=== PATIENT | female | born 1935 | race Caucasian/White ===

== ENCOUNTER → 2016-04-03 16:37 | Outpatient (CLI) | payer MEDICARE ==
[2015-09-21 14:10] VITALS: BMI 31.8
[~2016-04-03 16:37] MED LIST: ADVAIR 250/501 DISK INH; ADVAIR 500/501 DISK INH; ALDACTONE25 MG PO; AMBIEN10 MG PO; AMBIEN5 MG PO; ASPIRIN325 MG PO; ASPIRIN81 MG PO; ATIVAN0.5 MG PO; ATROVENT 0.02%2.5 ML UPD; AUGMENTIN 500-11 TA1 PO; BENZONATATE200 MG PO; BROVANA15 MCG/2 M INH; CORDARONE200 MG PO; COREG 3.1253.125 MG PO; COREG6.25 MG PO; DOXYCYCLINE HY100 M2 PO; FERREX 150 PLUS1 CAP PO; FERROUS SULFAT325 MG PO; FLORAJEN3 CAPS460 MG PO; FLUTICASONE PRO16 GM NASAL; FUROSEMIDE10 MG/M1 IV; GLYCOLAX527 GM PO; IPRAT-ALBUT 0.5-3 ML UPD; ISOSORBIDE MONO30 M1 PO; KLOR-CON 1010 MEQ PO; LASIX40 MG PO; LISINOPRIL10 MG PO; LISINOPRIL2.5 MG PO; LUNESTA1 MG PO; MAG-OX 400 MG400 MG PO; MIRALAX17 GM PO; MUCINEX DM ER1 EAC1 PO; MUCINEX600 MG PO; OMNICEF300 MG PO; ONDANSETRON4 MG/2 M3 IV; PACERONE200 MG PO; PLAVIX75 MG PO; PRAVACHOL40 MG PO; PRAVACHOL80 MG PO; PREDNISONE10 MG PO; PREDNISONE20 MG PO; PROAIR HFA8.5 GM INH; PROTONIX I40 MG/VIAL IV; PROVENTIL/2.5 MG/3 M NEB; PULMICORT0.5 MG/21 UPD; RESTORIL7.5 MG PO; SINGULAIR10 MG PO; SOLU-MEDRO40 MG/1 M1 IV; SPIRIVA18 MCG INH; STERAPRED 5MG 125 MG PO; STERAPRED DS 1210 MG PO; TESSALON PERLE100 MG PO; XOPENEX 0.0.63 MG/3 UPD; ZITHROMAX250 MG PO; ZITHROMAX500 MG PO; ZOFRAN4 MG PO
== END | disposition home or self-care (01) ==
LOC: D.MAMMO 16:15
DX: Z12.31 Encounter for screening mammogram for malignant neoplasm of breast (principal)

== ENCOUNTER 2016-05-01 16:44 | Inpatient (IN) | payer MEDICARE ==
[~2016-05-01] VITALS: Ht 160 cm; Wt 82.3 kg
[~2016-05-01 16:44] MED LIST changes: -ADVAIR 500/501 DISK INH; -ALDACTONE25 MG PO; -AMBIEN10 MG PO; -ATROVENT 0.02%2.5 ML UPD; -AUGMENTIN 500-11 TA1 PO; -BENZONATATE200 MG PO; -FERROUS SULFAT325 MG PO; -FLORAJEN3 CAPS460 MG PO; -FUROSEMIDE10 MG/M1 IV; -GLYCOLAX527 GM PO; -LUNESTA1 MG PO; -MAG-OX 400 MG400 MG PO; -PREDNISONE10 MG PO; -PROAIR HFA8.5 GM INH; -PROTONIX I40 MG/VIAL IV; -PULMICORT0.5 MG/21 UPD; -SINGULAIR10 MG PO; -SOLU-MEDRO40 MG/1 M1 IV; -XOPENEX 0.0.63 MG/3 UPD; -ZITHROMAX250 MG PO
--- NOTE | 2016-05-01 17:00 | NUR ---
RECEIVED TO ROOM 2205 AT THIS TIME DIRECT ADMISSION FROM DR COURTNEY'S OFFICE. AT BEDSIDE. OXYGEN ON 4L VIA NC, WHICH IS PT'S HOME DOSE. ASSESSMENT AND HISTORY OBTAINED PER FLOWSHEET. VITAL SIGNS OBTAINED AND SCHUYLER ONTIVEROS APN ASSESSING PT. WILL CONTINUE WITH PLAN OF CARE.
[2016-05-01] MEDS ORDERED: LUNESTA1 MG PO (17:25)
[2016-05-01] MEDS ORDERED: GLYCOLAX527 GM PO (17:26)
[2016-05-01] MEDS ORDERED: MAG-OX 400 MG400 MG PO (17:27)
[2016-05-01] MEDS ORDERED: ALDACTONE25 MG PO (17:27)
[2016-05-01] MEDS ORDERED: COREG 3.1253.125 MG PO (17:28)
[2016-05-01] MEDS ORDERED: CORDARONE200 MG PO (17:30)
[2016-05-01] MEDS ORDERED: SINGULAIR10 MG PO (17:30)
[2016-05-01] MEDS ORDERED: ADVAIR 500/501 DISK INH (17:32)
[2016-05-01 17:47] LABS: BASOPHILS 0.3 % (0.0-2.0); EOSINOPHILS 1.2 % (0-7); HEMOGLOBIN 10.6 g/dL (12-16); IMMATURE GRANULOCYTES 0.4 % (0-5); LYMPHOCYTES 24.3 % (15-50); MCHC 29.4 g/dL (31.0-37.0); MCV 74.8 fL (80.0-100.0); MEAN PLATELET VOLUME 10.3 fL (7.4-10.4); MONOCYTES 7.2 % (2-11); NEUTROPHILS 66.6 % (40-80); RBC 4.81 10x6/uL (4.00-5.40); RDW 18.6 % (11.5-14.5); WBC 7.5 10x3/uL (4.8-10.8)
[2016-05-01 17:48] LABS: PLATELET COUNT 217 10x3/uL (130-400)
[2016-05-01 17:59] VITALS: BP 143/75; BMI 31.6
[2016-05-01 18:12] LABS: CKMB 1.6 U/L (0.0-3.6); TROPONIN-I 0.017 ng/mL (0.000-0.060)
[2016-05-01 18:27] LABS: APPEARANCE CLEAR (CLEAR); BILIRUBIN NEGATIVE (NEGATIVE); COLOR YELLOW (YELLOW); GLUCOSE NEGATIVE (NEGATIVE); KETONE NEGATIVE (NEGATIVE); LEUKOCYTE ESTERASE NEGATIVE (NEGATIVE); NITRITE NEGATIVE (NEGATIVE); PROTEIN NEGATIVE (NEGATIVE); UROBILINOGEN NORMAL (NORMAL)
--- NOTE | 2016-05-01 19:15 | NUR ---
20G IV SITED TO PT'S LEFT HAND X5 ATTEMPTS. PT TOLERATED WITHOUT COMPLAINTS.
[2016-05-01 21:00] VITALS: BP 104/42
[2016-05-01 23:40] LABS: ALBUMIN 2.3 g/dL (3.4-5.0); ALKALINE PHOSPHATASE 56 U/L (46-116); ALT (SGPT) 19 U/L (10-68); CALCIUM 8.7 mg/dL (8.5-10.1); CARBON DIOXIDE 30.7 mmol/L (21.0-32.0); CHLORIDE - SERUM 102 mmol/L (98-107); CKMB 3.2 U/L (0.0-3.6); CREATININE - SERUM 0.9 mg/dL (0.6-1.3); MAGNESIUM - SERUM 1.7 mg/dL (1.8-2.4); POTASSIUM - SERUM 3.4 mmol/L (3.5-5.1); PRO BNP 2160 pg/mL (0-450); PROTEIN - SERUM 5.9 g/dL (6.4-8.2); SODIUM 139 mmol/L (136-145); UREA NITROGEN 18 mg/dL (7-18); eGFR NON AFRICAN AMERICAN 64 mL/min (90-120)
[2016-05-01 23:43] LABS: CALC OSMOLALITY 282 mosm/kg (275-300); GLUCOSE 161 mg/dL (74-106)
[2016-05-01 23:44] LABS: TROPONIN-I 0.224 ng/mL (0.000-0.060)
[2016-05-02 01:00] VITALS: BP 120/52
[2016-05-02 05:00] VITALS: BP 115/49
[2016-05-02 05:11] LABS: BASOPHILS 0.2 % (0.0-2.0); EOSINOPHILS 1.4 % (0-7); HEMATOCRIT 33.4 % (36.0-48.0); HEMOGLOBIN 9.7 g/dL (12-16); LYMPHOCYTES 23.9 % (15-50); MCH 21.7 pg (26.0-34.0); MCV 74.7 fL (80.0-100.0); MEAN PLATELET VOLUME 9.8 fL (7.4-10.4); MONOCYTES 9.1 % (2-11); NEUTROPHILS 65.4 % (40-80); PLATELET COUNT 198 10x3/uL (130-400); RBC 4.47 10x6/uL (4.00-5.40); RDW 18.8 % (11.5-14.5); WBC 5.7 10x3/uL (4.8-10.8)
[2016-05-02 05:35] LABS: ALKALINE PHOSPHATASE 102 U/L (46-116); CALCIUM 8.2 mg/dL (8.5-10.1); CARBON DIOXIDE 33.6 mmol/L (21.0-32.0); CHLORIDE - SERUM 106 mmol/L (98-107); CKMB 1.1 U/L (0.0-3.6); PROTEIN - SERUM 6.2 g/dL (6.4-8.2); SODIUM 143 mmol/L (136-145); TROPONIN-I 0.021 ng/mL (0.000-0.060); UREA NITROGEN 18 mg/dL (7-18); eGFR NON AFRICAN AMERICAN 57 mL/min (90-120)
[2016-05-02 05:53] LABS: ALBUMIN 3.3 g/dL (3.4-5.0); ALT (SGPT) 40 U/L (10-68); CALC OSMOLALITY 286 mosm/kg (275-300); GLUCOSE 92 mg/dL (74-106); POTASSIUM - SERUM 4.1 mmol/L (3.5-5.1)
[2016-05-02 07:30] VITALS: BP 123/56
--- NOTE | 2016-05-02 07:30 | NUR ---
RECIEVED PT DURING WALKING ROUNDS. PT RESTING COMFORTABLY IN BED WITH NO COMPLAINTS OF PAIN OR DISCOMFORT AT THIS TIME. ASSESSMENT DONE PER FLOWSHEET. BED IN LOW POSITION AND CALL LIGHT WITHIN REACH. WILL CONTINUE TO MONITOR.
--- NOTE | 2016-05-02 09:45 | NUR ---
PATIENT IN LEFT LATERAL POSITION RESTING WITH EYES CLOSED. RESPIRATIONS EVEN AND UNLABORED. SIDE RAILS UP X2. BED IN LOW POSITION. CALL LIGHT IN REACH.
[2016-05-02 10:35] VITALS: Ht 160 cm; Wt 82.3 kg
--- NOTE | 2016-05-02 10:40 | NUR ---
PT SITTING UP IN CHAIR WITH NO COMPLAINTS OF PAIN OR DISCOMFORT AT THIS TIME. CALL LIGHT WITHIN REACH. WILL CONTINUE TO MONITOR.
[2016-05-02 12:22] VITALS: BP 104/48
[2016-05-02 13:53] LABS: CKMB 1.4 U/L (0.0-3.6); TROPONIN-I 0.017 ng/mL (0.000-0.060)
[2016-05-02 16:02] VITALS: BP 133/74
--- NOTE | 2016-05-02 16:48 | NUR ---
Patient Name: RIKKI LUCERO Admission Status: Urgent Accout number: [id number] Admission Date: 05-01-2016 : 1935 Admission Diagnosis: Attending: CL Current LOS: 1 Anticipated DC Date: 05-07-2016 Planned Disposition: Home with Home Health Primary Insurance: MEDICARE A & B Discharge Planning Comments: CM MET WITH PATIENT REGARDING D/C NEEDS AND PLANS. PATIENT STATED SHE LIVES WITH HER SPOUSE (ROSMERY) AND HE WILL DRIVE HER HOME AT DISCHARGE. PATIENT STATED SHE HAS 2 STEPS W/O RAILS TO ENTER HOME AND NO STAIRS INSIDE. PATIENT STATED SHE IS INDEPENDENT WITH HER CARE AND HAS OXYGEN (4L) 24/7, NEBULIZER, PORTABLE O2, SHOWER CHAIR, AND WALKER AT HOME. OXYGEN IS SUPPLIED BY [facility]. PATIENTS PCP IS DR. AUSTIN AND PHARMACY IS [facility]. PATIENT HAS NOT HAD HOME HEALTH BUT HAS SIGNED THE ANNA FORM WITH [facility]. CM WILL CONTINUE TO FOLLOW PATIENT WITH D/C NEEDS AND PLANS. PCP DR. NORMAN PLATA [facility]- [phone] ROSMERY (SPOUSE) [phone] [facility] (OXYGEN) Appetizer Packer: Paola Murphy Is the patient Alert and Oriented? Yes 0 * How many steps to enter\exit or inside your home? 2 W/O RAIL 0 * PCP DR. AUSTIN 0 * Pharmacy [facility] 0 * Preadmission Environment Home with Family 0 * ADLs Independent 0 * Equipment Nebulizer Oxygen Shower Chair Walker 0 * Other Equipment PORTABLE O2 OXYGEN SUPPLIE BY [facility] 0 * List name and contact numbers for known caregivers / representatives who currently or will assist patient after discharge: ROSMERY (ESTEVAN-NICKNAME) SPOUSE [phone] 0 * Community resources currently utilized None 0 * Additional services required to return to the preadmission environment? Yes 0 * Can the patient safely return to the preadmission environment? Yes 0 * Has this patient been hospitalized within the prior 30 days at any hospital? No 0 Grand Total: 0
[2016-05-02 18:10] LABS: CKMB 1.6 U/L (0.0-3.6)
--- NOTE | 2016-05-02 20:10 | NUR ---
ASSESSMENT COMPLETED, NO ACUTE DISTRESSS NOTED, DENIES NEEDS, FAMILY IN ROOM, FALL PRECAUTIONS IN PLACE, CL IN REACH, WILL MONITOR
[2016-05-02 21:00] VITALS: BP 111/54
--- NOTE | 2016-05-02 22:01 | NUR ---
MEDS GIVEN PER MAR ALONG WITH TYLENOL FOR GENERALIZED PAIN AND AMBIEN FOR SLEEP PER REQUEST, KEN WELL, CL IN REACH
[2016-05-03 00:29] LABS: CKMB 1.4 U/L (0.0-3.6)
[2016-05-03 01:00] VITALS: BP 110/66
[2016-05-03 05:00] VITALS: BP 122/64
[2016-05-03 05:47] LABS: BASOPHILS 0 % (0.0-2.0); EOSINOPHILS 0.1 % (0-7); HEMATOCRIT 33.9 % (36.0-48.0); HEMOGLOBIN 9.8 g/dL (12-16); IMMATURE GRANULOCYTES 0.1 % (0-5); LYMPHOCYTES 10.9 % (15-50); MCH 21.8 pg (26.0-34.0); MCHC 28.9 g/dL (31.0-37.0); MCV 75.5 fL (80.0-100.0); MEAN PLATELET VOLUME 10.3 fL (7.4-10.4); MONOCYTES 0.7 % (2-11); NEUTROPHILS 88.2 % (40-80); PLATELET COUNT 211 10x3/uL (130-400); RBC 4.49 10x6/uL (4.00-5.40); RDW 18.5 % (11.5-14.5); WBC 6.8 10x3/uL (4.8-10.8)
[2016-05-03 06:12] LABS: ALBUMIN 3.3 g/dL (3.4-5.0); ALKALINE PHOSPHATASE 101 U/L (46-116); ALT (SGPT) 38 U/L (10-68); BILIRUBIN - TOTAL 0.29 mg/dL (0.2-1.3); CALC OSMOLALITY 290 mosm/kg (275-300); CALCIUM 8.5 mg/dL (8.5-10.1); CARBON DIOXIDE 31.2 mmol/L (21.0-32.0); CHLORIDE - SERUM 107 mmol/L (98-107); CKMB 1.4 U/L (0.0-3.6); CREATININE - SERUM 0.9 mg/dL (0.6-1.3); POTASSIUM - SERUM 4.6 mmol/L (3.5-5.1); PROTEIN - SERUM 6.3 g/dL (6.4-8.2); SODIUM 143 mmol/L (136-145); UREA NITROGEN 21 mg/dL (7-18); eGFR NON AFRICAN AMERICAN 64 mL/min (90-120)
[2016-05-03 06:16] LABS: GLUCOSE 146 mg/dL (74-106)
[2016-05-03 07:44] VITALS: BP 125/53
--- NOTE | 2016-05-03 08:00 | NUR ---
AWAKE AND ALERT THIS MORINING. RESPIRATIONS EVEN AND NON LABORED. ASSESSMENT PERFORMED PER FLOWSHEET. LUNG SOUNDS DIMINISHED BILATERALLY. OXYGEN ON 4L, WHICH IS PT'S HOME DOSE. SCD'S OFF PER PT AT THIS TIME. DAILY WEIGHT OBTAINED AND PLACED IN FLOW SHEET. DENIES PAIN OR NEEDS AT THIS TIME. PT AMBULATES INDEPENDENTLY AND SELF POSITIONS FOR COMFORT. CALL LIGHT IN REACH. SRX2 WITH BED IN LOWEST POSITION AND WHEELS LOCKED. WILL CONTINUE WITH PLAN OF CARE.
--- NOTE | 2016-05-03 10:15 | NUR ---
DENIES NEEDS AT PRESENT TIME. CALL LIGHT AND PERSONAL BELONGINGS IN REACH. WILL CONTINUE WITH PLAN OF CARE.
--- NOTE | 2016-05-03 12:07 | NUR ---
SCHEDULED MEDICATIONS ADMINISTERED PER MARGOT, FEEDER DRIVER WITH JEB WITH INSTRUCTOR AT HER SIDE. PT DENIES FURTHER NEEDS. CALL LIGHT IN REACH, WILL CONTINUE WITH PLAN OF CARE.
[2016-05-03 12:13] VITALS: BP 103/42
[2016-05-03 12:18] LABS: CKMB 1.3 U/L (0.0-3.6)
--- NOTE | 2016-05-03 13:59 | EC ---
PATIENT:RIKKI LUCERO DATE OF SERVICE: 05/01/16 SEX: F MEDICAL RECORD: [id number] DATE OF : [birth year] LOCATION:D.MS Taylor220 AGE OF PATIENT: 80 ADMISSION DATE: 05/01/16 REFERRING PHYSICIAN: INTERPRETING PHYSICIAN: MIL MOREIRA MD ECHOCARDIOGRAM REPORT ECHO CHARGES 4 ECHO COMPLETE CLINICAL DIAGNOSIS: ELEVATED BNP/CHF ECHOCARDIOGRAPHIC MEASUREMENTS (adult normal given) AC root (d.<3.7cm) 3.3 LV Septum d (<1.2 cm> 1.7 Valve Excursion 2.1 LV Septum (systole) 2.0 Left Atria (s.<4.0cm> 4.6 LVPW d(<1.2cm) 1.7 RV (d.<2.3cm) 3.1 LVPW (sytole) 2.2 LV diastole(<5.6CM) 7.1 MV E-F(>70mm/sec) LV systole 5.7 LVOT Diameter 1.9 MV exc.(>10mm) Est.ejection fraction (50-75%) Pericardial Effusion N DOPPLER: LVIT A 114.0 E 90.0 LA RVSP 60.0 LVOT 103 AOP1/2T Asc. Ao 200 RVOT 57.0 RA PA 128 AV Gradient Peak 16.0 AV Mean 7.8 AV Area 1.3 MV Gradient Peak 5.3 MV Mean 1.8 MV Area COMMENTS: Security Associate: Jamila LINOE Ornamental Iron Erector:1 Dr. Moreira TAPE# PACS DATE OF SERVICE: 05/02/2016 Echocardiogram FINDINGS: 1. Left ventricular chamber size is dilated. Left ventricular systolic function is markedly reduced, overall ejection fraction in the 20% to 25% range. 2. Left atrium is enlarged at 4.6 cm. Right atrium and right ventricular chamber sizes are as well enlarged. 3. Ventricular septal defect appears to be present. This is seen in the ECHOCARDIOGRAM REPORT [id number] RIKKI LUCERO ANN subcostal view with left to right shunt. 4. Valvular structures have normal structure and motion. 5. Doppler interrogation reveals moderate mitral regurgitation, moderate tricuspid regurgitation, no other valvular insufficiency or stenosis and pulmonary systolic pressure is elevated at 60 mmHg. 6. No evidence of pericardial effusion or left ventricular thrombus. TRANSINT:[id number] Voice Confirmation ID: [id number] DOCUMENT ID: [id number] MIL MOREIRA MD at 1359 CC: [id number] DICTATION DATE: 05/02/16 1600 LEARNING TECHNOLOGIST: 05/02/16 1640 ADM IN [place] [id number] [place] [id number]
--- NOTE | 2016-05-03 14:00 | NUR ---
DR JALLOH VISITING WITH PT AT THIS TIME. DENIES NEEDS AT PRESENT. NO CHANGES IN INITIAL ASSESSMENT. CALL LIGHT IN REACH, WILL CONTINUE WITH PLAN OF CARE.
[2016-05-03 15:49] VITALS: BP 107/52
[2016-05-03 17:45] LABS: CKMB 2.1 U/L (0.0-3.6)
[2016-05-03 20:38] VITALS: BP 132/59
--- NOTE | 2016-05-03 21:10 | NUR ---
MEDS GIVEN PER MAR, KEN WELL, DENIES NEEDS, CL IN REACH
--- NOTE | 2016-05-03 21:40 | NUR ---
ASSESSMENT COMPLETED, NO DISTRESS NOTED, FAMILY PRESENT, FALL PRECAUTIONS IN PLACE, CL IN REACH
--- NOTE | 2016-05-03 22:43 | NUR ---
PRN AMBIEN GIVEN PER REQUEST FOR SLEEP, KEN WELL, DENIES NEEDS, CL IN REACH
[2016-05-04] VITALS: BP 110/62
[2016-05-04 04:00] VITALS: BP 119/64
[2016-05-04 05:13] LABS: BASOPHILS 0 % (0.0-2.0); EOSINOPHILS 0 % (0-7); HEMATOCRIT 33.5 % (36.0-48.0); HEMOGLOBIN 9.6 g/dL (12-16); IMMATURE GRANULOCYTES 0.3 % (0-5); LYMPHOCYTES 5.3 % (15-50); MCH 21.6 pg (26.0-34.0); MCHC 28.7 g/dL (31.0-37.0); MCV 75.3 fL (80.0-100.0); MEAN PLATELET VOLUME 10.8 fL (7.4-10.4); MONOCYTES 4.3 % (2-11); NEUTROPHILS 90.1 % (40-80); PLATELET COUNT 234 10x3/uL (130-400); RBC 4.45 10x6/uL (4.00-5.40); RDW 18.8 % (11.5-14.5)
--- NOTE | 2016-05-04 05:16 | NUR ---
AM MEDS GIVEN PER MAR, KEN WELL, DENIES NEEDS, SAFETY MEASURES IN PLACE, CL IN REACH
[2016-05-04 05:20] LABS: WBC 13.3 10x3/uL (4.8-10.8)
[2016-05-04 05:29] LABS: ALBUMIN 3.3 g/dL (3.4-5.0); BILIRUBIN - TOTAL 0.25 mg/dL (0.2-1.3); CALCIUM 8.3 mg/dL (8.5-10.1); CARBON DIOXIDE 34.5 mmol/L (21.0-32.0); POTASSIUM - SERUM 4.5 mmol/L (3.5-5.1)
[2016-05-04 08:03] VITALS: BP 130/61
--- NOTE | 2016-05-04 08:50 | NUR ---
AWAKE AND ALERT AT THIS TIME. DENIES PAIN OR NEEDS. LYING SUPINE IN BED WITH HOB AT 30 DEGREES. IV TO LEFT HAND PATENT. RESPIRATIONS EVEN AND NON LABORED. OXYGEN ON 4L VIA NC. CALL LIGHT IN REACH, SRX2 WITH BED LOCKED AND IN LOWEST POSITION. AMBULATES AND SELF POSITIONS FOR COMFORT CALL LIGHT IN REACH, WILL CONTINUE WITH PLAN OF CARE.
[2016-05-04 11:11] VITALS: BP 114/48
--- NOTE | 2016-05-04 12:40 | CN ---
PATIENT NAME:RIKKI RUST MEDICAL RECORD: [id number] : [birth year] LOCATION:D.MS Taylor2205 ADMIT DATE: 05/01/16 ACCOUNT: [id number] CONSULTING PHYSICIAN: ROBERT SADLER MD REFERRING PHYSICIAN: KHADAR AUSTIN MD DATE OF CONSULTATION: 05/02/2016 CONSULT REQUESTING PHYSICIAN: Allison Roy MD. REASON FOR CONSULTATION: Pneumonia, acute exacerbation of chronic obstructive pulmonary disease. HISTORY OF PRESENT ILLNESS: Ms. Rust is a 80-year-old very pleasant lady. According to the patient, she is sick for the last few days. She was treated by antibiotics yesterday by Dr. Leblanc, but she was not getting any better. Yesterday, she was seen again in the office and she has shortness of breath, coughing and wheezing. She denies any fever and chill. There are no night sweats. Denies any chest pain. REVIEW OF SYSTEMS: HEENT: Sinus congestion. RESPIRATORY: As in history of present illness. CARDIOVASCULAR: Negative. GASTROINTESTINAL: Negative. GENITOURINARY: Negative. Other review of the systems negative. PAST MEDICAL HISTORY: 1. COPD, home oxygen dependent. 2. Obstructive sleep apnea. 3. Congestive heart failure with systolic dysfunction. 4. Hypertension. 5. Coronary artery disease. 6. History of pneumonia. 7. History of recurrent COPD exacerbation and respiratory failure in the past. PAST SURGICAL HISTORY: 1. Hysterectomy. 2. Appendectomy. 3. Cardiac catheterization and stent placement. 4. Surgery for varicose veins repair, neck surgery for fracture and fixation of the right shoulder. ALLERGIES: SHE IS ALLERGIC TO MOXIFLOXACIN, SULFA. PRESENT MEDICATIONS: She is on DuoNeb, Rocephin and Zithromax. Her other medication is reviewed. PERSONAL AND SOCIAL HISTORY: The patient is an ex-smoker. She is a nondrinker. FAMILY HISTORY: Significant for cardiovascular disease. PHYSICAL EXAMINATION: GENERAL: Now, the patient is lying comfortably. She is not in acute respiratory distress. CONSULT REPORT [id number] RIKKI RUST VITAL SIGNS: The blood pressure is 104/48, pulse is 54, respirations 22, temperature 97 and SPO2 is 96% on nasal cannula. HEENT: Conjunctivae are pink. Sclerae nonicteric. NECK: Supple, no JVD. CHEST: There are crackles at the right base. Wheeze on forceful expiration. HEART: Rhythm regular, normal sound, no murmur. ABDOMEN: Soft. Bowel sounds present. No hepatosplenomegaly. RECTAL: Deferred. EXTREMITIES: No cyanosis, no clubbing, no pedal edema. SKIN: Warm, normal turgor. CENTRAL NERVOUS SYSTEM: The patient is awake and alert. There are no obvious cranial nerve abnormality. The gait was not tested. CHEST RADIOGRAPH: There are basilar infiltrate, a questionable pleural effusion. OTHER LABORATORY DATA: CBC: WBC 4.7, hemoglobin 9.7, hematocrit 33.4 with platelet count 198. Chemistry: Sodium 143, potassium 4.1, BUN is 18, creatinine is 1, glucose 92. IMPRESSION: 1. Acute exacerbation of chronic obstructive pulmonary disease. 2. Right basilar pneumonia, most likely community-acquired pneumonia. 3. Dyspnea on exertion. 4. Chronic hypoxic respiratory failure. 5. Congestive heart failure with systolic dysfunction. 6. Obstructive sleep apnea. RECOMMENDATION: 1. Continue albuterol/ipratropium nebulizer. 2. I will add Brovana, budesonide nebulizers. 3. Methylprednisolone IV. 4. Rocephin and Zithromax IV. 5. We will follow up labs and chest radiograph. Dr. Roy, once again thanks for involving me in the care of Ms. Rust. TRANSINT:[id number] Voice Confirmation ID: [id number] DOCUMENT ID: [id number] ROBERT SADLER MD at 1240 CC: KHADAR AUSTIN MD [id number] DICTATION DATE: 05/02/16 1415 DIGITAL TRAFFIC COORDINATOR: 05/02/16 1542 ADM IN [place] [id number] [place] [id number]
[2016-05-04 15:57] VITALS: BP 100/81
--- NOTE | 2016-05-04 17:35 | NUR ---
SCHEDULED MEDICATIONS ADMINISTERED AT THIS TIME. PT DENIES PAIN. IV TO LEFT HAND PATENT WITH NO S/S OF INFILTRATION PRESENT. CALL LIGHT IN REACH. WILL CONTINUE WITH PLAN OF CARE.
--- NOTE | 2016-05-04 19:55 | NUR ---
ASSESSMENT COMPLETED, NO DISTRESS NOTED, DENIES NEEDS, SAFETY PRECAUTIONS IN PLACE, CL IN REACH, WILL MONITOR
[2016-05-04 20:00] VITALS: BP 119/47
--- NOTE | 2016-05-04 22:12 | NUR ---
MEDS GIVEN PER MAR ALONG WITH PRN AMBIEN FOR SLEEP, KEN WELL, CL IN REACH
--- NOTE | 2016-05-04 23:32 | NUR ---
RESTING WITH EYES CLOSED, RESP WITH EASE, NC IN PLACE, SR'S UP X2, CL IN REACH
[2016-05-05] VITALS: BP 113/50
[2016-05-05 04:00] VITALS: BP 131/64
[2016-05-05 05:25] LABS: BASOPHILS 0 % (0.0-2.0); EOSINOPHILS 0 % (0-7); HEMATOCRIT 33.2 % (36.0-48.0); HEMOGLOBIN 9.8 g/dL (12-16); IMMATURE GRANULOCYTES 0.2 % (0-5); LYMPHOCYTES 5.6 % (15-50); MCHC 29.5 g/dL (31.0-37.0); MCV 74.4 fL (80.0-100.0); MEAN PLATELET VOLUME 10.3 fL (7.4-10.4); NEUTROPHILS 92.2 % (40-80); PLATELET COUNT 234 10x3/uL (130-400); RBC 4.46 10x6/uL (4.00-5.40); RDW 18.7 % (11.5-14.5)
[2016-05-05 05:43] LABS: ALBUMIN 3.3 g/dL (3.4-5.0); ANION GAP 8.4 mmol/L (8-16); BILIRUBIN - TOTAL 0.27 mg/dL (0.2-1.3); CALCIUM 8.5 mg/dL (8.5-10.1); CARBON DIOXIDE 34.1 mmol/L (21.0-32.0); POTASSIUM - SERUM 4.5 mmol/L (3.5-5.1); PROTEIN - SERUM 6.1 g/dL (6.4-8.2)
--- NOTE | 2016-05-05 07:37 | NUR ---
PATIENT IS AWAKE, ALERT AND ORIENTED X'S 4. SERG IS IN ROOM DOING PATIENT'S ASSESSMENT. PATIENT DENIES NEEDS AT THIS TIME. PATIENT IS RECIEVING OXYGEN VIA NASAL CANNULA AT 5L/MIN.
--- NOTE | 2016-05-05 07:40 | NUR ---
RECIEVED PATIENT DURING WALKING ROUNDS. PATIENT LYING IN BED WITH EVEN RESPIRATIONS. NO SIGNS OF DISTRESS. HOB 40DEGRESS, READING NEWSPAPER. ASSESSMENT DONE PER FLOW SHEET. BED IN LOW POSITION AND CALL LIGHT WITHIN REACH. WILL CONTINUE TO MONITOR.
[2016-05-05 08:16] VITALS: BP 113/69
[2016-05-05 12:20] VITALS: BP 106/79
[2016-05-05 15:49] VITALS: BP 110/60
--- NOTE | 2016-05-05 18:58 | NUR ---
NO CHANGES HAVE OCCURED SINCE INITAL SHIFT ASSESSMENT
--- NOTE | 2016-05-05 19:35 | NUR ---
ASSESSMENT COMPLETED, NO ACUTE DISTRESS NOTED, NC IN PLACE, DENIES PAIN OR NEEDS AT THIS TIME, SR'S UP X2, CL IN REACH, WILL MONITOR
[2016-05-05 20:00] VITALS: BP 120/56
--- NOTE | 2016-05-05 21:42 | NUR ---
MEDS GIVEN PER MAR ALONG WITH PRN AMBIEN FOR SLEEP, KEN WELL, DENIES NEEDS, CL IN REACH
--- NOTE | 2016-05-05 23:22 | NUR ---
RESTING WITH EYES CLOSED, NO DISTRESS NOTED, NC IN PLACE, SR'S UP X2, CL IN REACH
[2016-05-06] VITALS: BP 108/52
[2016-05-06 04:00] VITALS: BP 125/55
[2016-05-06 05:27] LABS: BASOPHILS 0 % (0.0-2.0); EOSINOPHILS 0 % (0-7); HEMATOCRIT 33.5 % (36.0-48.0); HEMOGLOBIN 9.8 g/dL (12-16); IMMATURE GRANULOCYTES 0.2 % (0-5); LYMPHOCYTES 6.3 % (15-50); MCH 21.7 pg (26.0-34.0); MCHC 29.3 g/dL (31.0-37.0); MCV 74.3 fL (80.0-100.0); MEAN PLATELET VOLUME 10.4 fL (7.4-10.4); MONOCYTES 2.2 % (2-11); NEUTROPHILS 91.3 % (40-80); PLATELET COUNT 237 10x3/uL (130-400); RBC 4.51 10x6/uL (4.00-5.40); RDW 18.6 % (11.5-14.5); WBC 9.7 10x3/uL (4.8-10.8)
[2016-05-06 05:59] LABS: ALBUMIN 3.2 g/dL (3.4-5.0); ANION GAP 8.4 mmol/L (8-16); BILIRUBIN - TOTAL 0.24 mg/dL (0.2-1.3); CALCIUM 8.1 mg/dL (8.5-10.1); CARBON DIOXIDE 33.2 mmol/L (21.0-32.0); POTASSIUM - SERUM 4.6 mmol/L (3.5-5.1); PROTEIN - SERUM 5.8 g/dL (6.4-8.2)
--- NOTE | 2016-05-06 07:00 | NUR ---
REPORT RECIEVED ASSUMED CARE. PATIENT IN BED WITH IV INTACT. NO COMPLAINTS AT THIS TIME. CALL LIGHT WITHIN REACH.
[2016-05-06 08:03] VITALS: BP 147/72
[2016-05-06 11:11] VITALS: BP 100/50
[2016-05-06 16:22] VITALS: BP 118/62
--- NOTE | 2016-05-06 18:50 | NUR ---
PATIENT IN BED WITH IV INTACT. NO COMPLAINTS. IV ANTIBIOTIC INFUSING. CALL LIGHT WITHIN REACH.
[2016-05-06 20:00] VITALS: BP 116/81
--- NOTE | 2016-05-06 22:20 | NUR ---
PATIENT RESTING IN BED WATCHING TV. NO SIGNS OF DISTRESS NOTED. SCHEDULED MEDICATIONS GIVEN ORDERED. PRN AMBIEN GIVEN AT PATIENT REQUEST. DENIES ANY NEEDS AT THIS TIME. BED LOW. CALL LIGHT IN REACH.
[2016-05-07 00:30] VITALS: BP 114/59
--- NOTE | 2016-05-07 01:41 | NUR ---
EYES CLOSED RESPIRATIONS WITH EASE AND UNLABORED.
[2016-05-07 05:00] VITALS: BP 167/53
--- NOTE | 2016-05-07 07:35 | NUR ---
PATIENT ALERT IN HIGH PIEDRA POSITION PLAYING CARD GAME ON TABLET. RESPIRATIONS EVEN AND UNLABORED. SIDE RAILS UP X2. BED IN LOW POSITION. CALL LIGHT IN REACH.
--- NOTE | 2016-05-07 08:00 | NUR ---
PT ASSESSMENT COMPLETE PT AWAKE AND ALERT ORINETED X 3 LUNGS WITH NOTED EXPIRATORY WHEEZE FAINT AND SPARSE. AMBULATES WELL WITH PT UP AD SUKHWINDER IN ROOM BSA X 4 QUADS
[2016-05-07 09:12] VITALS: BP 117/53
[2016-05-07] MEDS ORDERED: TESSALON PERLE100 MG PO (09:58)
[2016-05-07] MEDS ORDERED: FLUTICASONE PRO16 GM NASAL (09:59)
[2016-05-07] MEDS ORDERED: MUCINEX DM ER1 EAC1 PO (09:59)
[2016-05-07] MEDS ORDERED: PULMICORT0.5 MG/21 UPD (09:59)
[2016-05-07] MEDS ORDERED: BROVANA15 MCG/2 M INH (10:00)
[2016-05-07] MEDS ORDERED: PROAIR HFA8.5 GM INH (10:00)
[2016-05-07] MEDS ORDERED: ZITHROMAX250 MG PO (10:03)
[2016-05-07] MEDS ORDERED: OMNICEF300 MG PO (10:03)
[2016-05-07] MEDS ORDERED: PREDNISONE10 MG PO (10:04)
--- NOTE | 2016-05-07 10:46 | NUR ---
CM REASSESSMENT NOTE: PATIENT WILL DISCHARGE TODAY WITH [facility]. SPOUSE WILL BE DRIVING HER HOME AND IS BRINGING HER PORTABLE OXYGEN. PATIENT DENIES ANY OTHER NEEDS FOR DISCHARGE. [facility] IS AWARE OF PATIENT DISCHARGING.
--- NOTE | 2016-05-07 10:54 | NUR ---
PT TO BE DISCHARGED TODAY TO HOME WITH HOME HEALTH CARE PIV DISCONTINUED TOLERATED WELL DISCHARGE INSTRUCTIONS GIVEN UNDERSTANDING EXPRESSD.
--- NOTE | 2016-05-07 11:31 | NUR ---
PT WAITING ON SPOUSE TO TAKE HER HOME HE IS HER RIDE. WILL NOTE ACTUAL DISCHARGE TIME
--- NOTE | 2016-05-07 14:35 | NUR ---
PT DISCHARGED WITH SPOUSE AT THIS TIME VIA WHEELCHAIR TO PRIVATE VEHICLE
[2016-06-08] MEDS ORDERED: AUGMENTIN 500-11 TA1 PO (17:29)
== END 2016-05-07 14:37 | disposition home health service (06) | DRG 190 ==
LOC: D.MS 16:44
PROVIDERS: Emergency Medicine; ADMIT Family Medicine
DX: J44.0 Chronic obstructive pulmonary disease with (acute) lower respiratory infection (principal); J18.9 Pneumonia, unspecified organism; I42.9 Cardiomyopathy, unspecified; I50.22 Chronic systolic (congestive) heart failure; J96.11 Chronic respiratory failure with hypoxia; J98.11 Atelectasis; J44.1 Chronic obstructive pulmonary disease with (acute) exacerbation; Z99.81 Dependence on supplemental oxygen; I08.1 Rheumatic disorders of both mitral and tricuspid valves; I48.0 Paroxysmal atrial fibrillation; I25.10 Atherosclerotic heart disease of native coronary artery without angina pectoris; G47.33 Obstructive sleep apnea (adult) (pediatric); I11.0 Hypertensive heart disease with heart failure

== ENCOUNTER → 2016-05-22 16:49 | Outpatient (CLI) | payer MEDICARE ==
[2016-05-02 10:35] VITALS: BMI 31.5
[~2016-05-22 16:49] MED LIST changes: +ADVAIR 500/501 DISK INH; +ALDACTONE25 MG PO; +AMBIEN10 MG PO; +ATROVENT 0.02%2.5 ML UPD; +AUGMENTIN 500-11 TA1 PO; +BENZONATATE200 MG PO; +FERROUS SULFAT325 MG PO; +FLORAJEN3 CAPS460 MG PO; +FUROSEMIDE10 MG/M1 IV; +GLYCOLAX527 GM PO; +LASIX20 MG PO; +LUNESTA1 MG PO; +MAG-OX 400 MG400 MG PO; +NEURONTIN 300300 MG PO; +PREDNISONE10 MG PO; +PROAIR HFA8.5 GM INH; +PROTONIX I40 MG/VIAL IV; +PULMICORT0.5 MG/21 UPD; +SINGULAIR10 MG PO; +SOLU-MEDRO40 MG/1 M1 IV; +XOPENEX 0.0.63 MG/3 UPD; +ZITHROMAX250 MG PO
== END | disposition home or self-care (01) ==
LOC: D.MAMMO 13:00
DX: R92.8 Other abnormal and inconclusive findings on diagnostic imaging of breast (principal)

== ENCOUNTER 2016-06-10 10:59 | Inpatient (IN) | payer MEDICARE ==
[~2016-06-10] VITALS: Ht 160 cm; Wt 79.5 kg
[~2016-06-10 10:59] MED LIST changes: -AMBIEN10 MG PO; -ATROVENT 0.02%2.5 ML UPD; -BENZONATATE200 MG PO; -FERROUS SULFAT325 MG PO; -FLORAJEN3 CAPS460 MG PO; -FUROSEMIDE10 MG/M1 IV; -LASIX20 MG PO; -NEURONTIN 300300 MG PO; -PROTONIX I40 MG/VIAL IV; -SOLU-MEDRO40 MG/1 M1 IV; -XOPENEX 0.0.63 MG/3 UPD
[2016-06-10 12:28] LABS: BASOPHILS 0.1 % (0.0-2.0); EOSINOPHILS 0 % (0-7); HEMATOCRIT 37.1 % (36.0-48.0); HEMOGLOBIN 10.7 g/dL (12-16); IMMATURE GRANULOCYTES 0.3 % (0-5); LYMPHOCYTES 6.7 % (15-50); MCH 21.8 pg (26.0-34.0); MCHC 28.8 g/dL (31.0-37.0); MCV 75.6 fL (80.0-100.0); MEAN PLATELET VOLUME 9.8 fL (7.4-10.4); MONOCYTES 7.1 % (2-11); NEUTROPHILS 85.8 % (40-80); PLATELET COUNT 249 10x3/uL (130-400); RBC 4.91 10x6/uL (4.00-5.40); RDW 19.1 % (11.5-14.5); WBC 11.1 10x3/uL (4.8-10.8)
[2016-06-10 12:45] LABS: ALBUMIN 3.6 g/dL (3.4-5.0); ANION GAP 8.8 mmol/L (8-16); BILIRUBIN - TOTAL 0.3 mg/dL (0.2-1.3); CALCIUM 8.3 mg/dL (8.5-10.1); CARBON DIOXIDE 31.4 mmol/L (21.0-32.0); CREATININE - SERUM 1.2 mg/dL (0.6-1.3); POTASSIUM - SERUM 4.2 mmol/L (3.5-5.1); PROTEIN - SERUM 6.8 g/dL (6.4-8.2)
[2016-06-10 12:50] LABS: TROPONIN-I 0.018 ng/mL (0.000-0.060)
--- NOTE | 2016-06-10 17:00 | NUR ---
RECEIVED TO ROOM 2203 AT THIS TIME VIA STRETCHER FROM THE ER. VITAL SIGNS STABLE AND PT ALERT AND ORIENTED X4. FAMILY AT BEDSIDE. ASSESSMENT AND HISTORY OBTAINED PER FLOWSHEET. IV TO RIGHT AC PATENT. CALL LIGHT IN REACH, WILL CONTINUE WITH PLAN OF CARE.
[2016-06-10] MEDS ORDERED: MUCINEX600 MG PO (17:28)
[2016-06-10] MEDS ORDERED: AMBIEN10 MG PO (17:31)
[2016-06-10 17:46] VITALS: BP 105/54; BMI 31.9
--- NOTE | 2016-06-10 19:29 | NUR ---
Patient Name: RIKKI LUCERO Admission Status: ER Accout number: [id number] Admission Date: 06-10-2016 : 1935 Admission Diagnosis: Bilateral Pneumonia Attending: ROLAND Current LOS: 1 Anticipated DC Date: 06-14-2016 Planned Disposition: Return home with spouse, Leticia , and House Calls. Primary Insurance: MEDICARE A & B Discharge Planning Comments: Cm met with patient to complete initial discharge planning assessment. Patient gave consent to complete assessment. Patient reports living at home with her . She is independent in her care at home. She uses O2 at home continuously @ 4 liters. She has [facility] and [facility] as well. Patient plans to return home at discharge. CM will continue to follow and assist with dc plan/needs. Director Of Epidemiology: Jeaneth Rivas RN, [facility] [phone] Is the patient Alert and Oriented? Yes 0 * How many steps to enter\exit or inside your home? 2-4 0 * PCP Dr. Wagner 0 * Pharmacy [facility] on [address] 0 * Preadmission Environment Home with Family 0 * ADLs Independent 0 * Equipment Oxygen Rolling Walker 0 * Other Equipment Wears O2 continuously 0 * List name and contact numbers for known caregivers / representatives who currently or will assist patient after discharge: Twyla Page - Daughter- [phone] 0 * Community resources currently utilized Home Health 0 * Please name any agencies selected above. [facility] 0 * Additional services required to return to the preadmission environment? No 0 * Can the patient safely return to the preadmission environment? Yes 0 * Has this patient been hospitalized within the prior 30 days at any hospital? No
[2016-06-10 20:00] VITALS: BP 89/45
--- NOTE | 2016-06-10 20:00 | NUR ---
REC'D IN BED AWAKE AND ALERT. RESP EVEN AND SLIGHTLY LABORERED WITH OXYMIZER IN USE @ 7 L/M. NO C/O NOTED OR VOICED. TURN AND REPOSITION SELF AB SUKHWINDER. ASSESSMENT COMPLETED. C/L IN REACH AT BEDSIDE.
[2016-06-11] VITALS: BP 101/55
[2016-06-11 04:00] VITALS: BP 154/49
--- NOTE | 2016-06-11 04:00 | NUR ---
NO C/O NOTED AT THIS TIME AWAKE WATCHING TV. NO DISTRESS NOTED. WILL CONTINUE TO OBSERVE FOR NEEDS. C/L IN REACH AT BEDSIDE.
--- NOTE | 2016-06-11 04:47 | NUR ---
PATIENT RESTING IN SEMI-FOWLERS POSITION. PATIENT DENIES NEEDS AT THIS TIME. BED IN LOWEST POSITION AND CALL LIGHT WITHIN REACH.
[2016-06-11 06:04] LABS: BASOPHILS 0 % (0.0-2.0); EOSINOPHILS 0 % (0-7); HEMATOCRIT 32.9 % (36.0-48.0); HEMOGLOBIN 9.3 g/dL (12-16); IMMATURE GRANULOCYTES 0.5 % (0-5); LYMPHOCYTES 12.9 % (15-50); MCH 21.3 pg (26.0-34.0); MCHC 28.3 g/dL (31.0-37.0); MCV 75.3 fL (80.0-100.0); MONOCYTES 12.3 % (2-11); NEUTROPHILS 74.3 % (40-80); PLATELET COUNT 212 10x3/uL (130-400); RBC 4.37 10x6/uL (4.00-5.40); RDW 19.2 % (11.5-14.5)
[2016-06-11 06:10] LABS: WBC 6.4 10x3/uL (4.8-10.8)
[2016-06-11 06:11] LABS: ANION GAP 9.8 mmol/L (8-16); CARBON DIOXIDE 31.2 mmol/L (21.0-32.0); MAGNESIUM - SERUM 2.5 mg/dL (1.8-2.4)
[2016-06-11 06:14] LABS: CREATININE - SERUM 0.8 mg/dL (0.6-1.3)
--- NOTE | 2016-06-11 07:36 | NUR ---
AMBULATING IN ROOM WITHOUT ASSISTANCE AT THIS TIME. PT NEEDS IV ACCESS. VARGHESE SANCHEZ RN VENOUS ACCESS NURSE CALLED AT EXT[facility]ION [phone] AND VOICEMAIL LEFT. PT DENIES NEEDS AT THIS TIME. CALL LIGHT IN REACH, WILL CONTINUE WITH PLAN OF CARE.
[2016-06-11 08:07] VITALS: BP 117/52
--- NOTE | 2016-06-11 08:27 | NUR ---
IV access-22 gauge inserted in right hand. Amanda Acuna RN
--- NOTE | 2016-06-11 08:48 | NUR ---
SCHEDULED MEDICATIONS GIVEN BY BRIANDA FORD RN AT THIS TIME. DENIES FURTHER NEEDS. WILL CONTINUE WITH PLAN OF CARE.
--- NOTE | 2016-06-11 10:11 | NUR ---
SCHEDULED MEDICATIONS ADMINISTERED AT THIS TIME. IV TO RIGHT HAND PATENT WITH NO S/S OF INFILTRATION PRESENT. DENIES FURTHER NEEDS. ASSESSMENT PERFORMED. WILL CONTINUE WITH PLAN OF CARE.
[2016-06-11 12:30] VITALS: BP 97/50
--- NOTE | 2016-06-11 12:35 | NUR ---
RAPID INFLUENZA RESULT BACK AND PT POSITIVE FOR FLU A. PT PLACED IN DROPLET ISOLATION AND UNDERSTANDING WAS VERBALIZED OF DIAGNOSIS AND ISOLATION PRECAUTIONS.
[2016-06-11 13:26] VITALS: Ht 160 cm; Wt 79.5 kg
--- NOTE | 2016-06-11 13:58 | HP ---
PATIENT: RIKKI RUST MEDICAL RECORD: [id number] ACCOUNT: [id number] LOCATION:D.MS Taylor2202 : [birth year] ADMISSION DATE: 06/10/16 HISTORY AND PHYSICAL EXAMINATION HISTORY OF PRESENT ILLNESS: Ms. Rust is a pleasant 80-year-old white female, patient of Dr. Wagner that presents to the Emergency Room with a 5-6 day history of shortness of breath, coughing, fever, was seen walk-in in clinic on Saturday and Saturday and given shots of antibiotics and some steroids also started on some p.o. antibiotics. She has failed to improve and presents to the Emergency Room this evening. Chest x-ray revealed pneumonia. She is admitted for failure to treat as an outpatient. She has been seen in consultation by pulmonary. PAST MEDICAL HISTORY: Significant for known COPD. She has been a smoker in the past, but quit approximately 20 years. She also has a history of coronary artery disease and has previous stents, hypertension, intermittent atrial fibrillation, currently in sinus and on amiodarone, chronic debility, generalized anxiety, sleep apnea, oxygen dependent, chronic insomnia. PAST SURGICAL HISTORY: Include previous cardiac stents and angioplasties, appendectomy, hysterectomy, varicose vein removal, right wrist fracture, right shoulder fracture. ALLERGIES: SULFA, DEPLIN, AVELOX. HOME MEDICATIONS: Include she has recently been on Augmentin at their home which was is in the last few days, ProAir inhaler, DuoNeb updraft, Plavix 75 mg a day, isosorbide mononitrate 30 mg a day, pravastatin 80 mg a day, Coreg 3.125 at h.s., amiodarone 200 b.i.d., spironolactone 25 daily, lorazepam p.r.n., baby aspirin, Ambien 5 at h.s. p.r.n., furosemide 40 b.i.d., potassium 10 b.i.d., guaifenesin and Singulair 10 mg a day, MiraLax b.i.d. and magnesium oxide 400 mg b.i.d. FAMILY HISTORY: Noncontributory. SOCIAL HISTORY: The patient is . She lives here in [place] with her . She has been a longtime smoker, but quit approximately 20 years ago. REVIEW OF SYSTEMS: She has had a little bit of fever, but not much. She has had a nonproductive cough, myalgias, shortness of breath and wheezing. No nausea or vomiting. She has had a little bit of diarrhea. PHYSICAL EXAMINATION: HEAD: Normocephalic. NECK: Soft and supple. HEART: Regular. LUNGS: With bilateral rhonchi with mild expiratory wheeze. ABDOMEN: Soft. EXTREMITIES: Lower extremities reveal minimal edema. She does have some varicose veins. NEUROLOGIC: Without any gross focal deficits. IMPRESSION: 1. Chronic obstructive pulmonary disease exacerbation/pneumonia. HISTORY AND PHYSICAL [id number] RIKKI RUST 2. Known coronary artery disease, stable. 3. Hypertension 4. Generalized anxiety disorder. PLAN: Admit, pulmonary consult, IV antibiotics, pulmonary toilet. Appreciate Dr. Cabral's help. See orders for rest of plan. TRANSINT:[id number] Voice Confirmation ID: [id number] DOCUMENT ID: [id number] SANJANA REGALADO DO at 1358 CC: [id number] DICTATION DATE: 06/10/162003 INTEGRITY ENGINEER: 06/11/16 0023 ADM IN [facility] [address] [place] [id number]
[2016-06-11 15:46] VITALS: BP 120/54
[2016-06-11 20:00] VITALS: BP 116/53
--- NOTE | 2016-06-11 21:59 | NUR ---
PATIENT SITTING ON SIDE OF THE BED. NO SIGNS OF DISTRESS NOTED. ALERT AND ORIENTED. SCHEDULED MEDS GIVEN. SHIFT ASSESSMENT COMPLETED. DENIES ANY NEEDS AT THIS TIME. BED LOW. CALL LIGHT IN REACH
[2016-06-12] VITALS: BP 122/56
--- NOTE | 2016-06-12 02:00 | NUR ---
RESTING WITH EYES CLOSED, NO ACUTE DISTRESS NOTED, ISOLATION AND FALL PRECAUTIONS IN PLACE, CL IN REACH
[2016-06-12 04:00] VITALS: BP 130/62
[2016-06-12 05:11] LABS: BASOPHILS 0 % (0.0-2.0); EOSINOPHILS 0 % (0-7); HEMATOCRIT 31.5 % (36.0-48.0); HEMOGLOBIN 9.3 g/dL (12-16); IMMATURE GRANULOCYTES 0.3 % (0-5); LYMPHOCYTES 7.1 % (15-50); MCH 22.4 pg (26.0-34.0); MCHC 29.5 g/dL (31.0-37.0); MCV 75.9 fL (80.0-100.0); MEAN PLATELET VOLUME 9.6 fL (7.4-10.4); NEUTROPHILS 89.6 % (40-80); PLATELET COUNT 202 10x3/uL (130-400); RBC 4.15 10x6/uL (4.00-5.40); RDW 19.2 % (11.5-14.5)
[2016-06-12 05:21] LABS: ANION GAP 6.2 mmol/L (8-16); CALCIUM 8.3 mg/dL (8.5-10.1); CARBON DIOXIDE 35.2 mmol/L (21.0-32.0); CREATININE - SERUM 0.8 mg/dL (0.6-1.3); MAGNESIUM - SERUM 3.1 mg/dL (1.8-2.4); POTASSIUM - SERUM 4.4 mmol/L (3.5-5.1)
--- NOTE | 2016-06-12 07:00 | NUR ---
REPORT RECIEVED ASSUMED CARE. PATIENT IN BED WITH IV INTACT. NO COMPLAINTS AT THIS TIME. CALL LIGHT WITHIN REACH.
[2016-06-12 08:38] VITALS: BP 98/46
--- NOTE | 2016-06-12 12:45 | NUR ---
PATIENT SITTING UP ON THE SIDE OF THE BED WITH NO COMPLAINTS AT THIS TIME. IV INTACT. VS STABLE. CALL LIGHT WITHIN REACH.
[2016-06-12 13:04] VITALS: BP 114/54
--- NOTE | 2016-06-12 13:56 | NUR ---
Patient Name: RIKKI LUCERO Encounter No: [id number] : 1935 Primary Insurance: MEDICARE A & B Anticipated DC Date: 06-14-2016 Planned Disposition: External Planned Provider: : [facility] follow-up note: Patient and family in agreement with discharge plan. Patient requests [employer] for her spouse and self in addition to [facility] home health at discharge. CM notified [employer] credit resolution representative who will contact patient and set up delivery. Case management will follow and assist as needed. Mally Wang * Is the patient Alert and Oriented? Yes 0 * How many steps to enter\exit or inside your home? 2-4 0 * PCP Dr. Wagner 0 * Pharmacy [facility] on [address] 0 * Preadmission Environment Home with Family 0 * ADLs Independent 0 * Equipment Oxygen Rolling Walker 0 * Other Equipment Wears O2 continuously 0 * List name and contact numbers for known caregivers / representatives who currently or will assist patient after discharge: Twyla Page - Daughter- [phone] 0 * Community resources currently utilized Home Health 0 * Please name any agencies selected above. [facility] 0 * Additional services required to return to the preadmission environment? No 0 * Can the patient safely return to the preadmission environment? Yes 0 * Has this patient been hospitalized within the prior 30 days at any hospital? No 0 Grand Total: 0
--- NOTE | 2016-06-12 17:03 | NUR ---
PATIENT IN ROOM AT THIS WITH NO PROBLEMS NOTED. REQUESTING TYLENOL FOR PAIN. IV INTACT. CALL LIGHT WITHIN REACH.
[2016-06-12 17:07] VITALS: BP 113/49
--- NOTE | 2016-06-12 19:50 | NUR ---
PT SITTING UP IN BED, ASSESSMENT COMPLETED, NO ACUTE DISTRESS NOTED, DENIES NEEDS AT THIS TIME, FALL AND ISOLATION PRECAUTIONS IN PLACE, CL IN REACH, WILL MONITOR
[2016-06-12 20:00] VITALS: BP 122/68
--- NOTE | 2016-06-12 20:53 | NUR ---
ROUTINE MEDS GIVEN PER MAR, KEN WELL, DENIES NEEDS, FALL PRECAUTIONS IN PLACE, CL IN REACH
--- NOTE | 2016-06-12 22:51 | NUR ---
PRN PAULIEN GIVEN PER REQUEST, KEN WELL, DENIES FURTHER NEEDS, SCD'S PLACE, CL IN REACH
--- NOTE | 2016-06-12 23:20 | NUR ---
SITTING UP IN BED, DENIES NEEDS AT THIS TIME, FALL AND ISOLATION PRECAUTIONS IN PLACE, CL IN REACH
[2016-06-13] VITALS: BP 122/60; BP 170/82
--- NOTE | 2016-06-13 00:52 | NUR ---
MAXIPIME GIVEN PER MAR, KEN WELL, DENIES NEEDS, CL IN REACH
--- NOTE | 2016-06-13 01:33 | NUR ---
RESTING WITH EYES CLOSED, OXIMIZER IN PLACE, NO DISTRESS NOTED, CL IN REACH
[2016-06-13 04:00] VITALS: BP 152/70
[2016-06-13 05:47] LABS: BASOPHILS 0 % (0.0-2.0); EOSINOPHILS 0 % (0-7); HEMATOCRIT 31.7 % (36.0-48.0); HEMOGLOBIN 8.9 g/dL (12-16); IMMATURE GRANULOCYTES 0.5 % (0-5); LYMPHOCYTES 6.1 % (15-50); MCH 21.3 pg (26.0-34.0); MCHC 28.1 g/dL (31.0-37.0); MCV 75.8 fL (80.0-100.0); MEAN PLATELET VOLUME 9.9 fL (7.4-10.4); MONOCYTES 2.9 % (2-11); NEUTROPHILS 90.5 % (40-80); PLATELET COUNT 225 10x3/uL (130-400); RBC 4.18 10x6/uL (4.00-5.40); RDW 19.3 % (11.5-14.5); WBC 6.6 10x3/uL (4.8-10.8)
[2016-06-13 05:50] LABS: CALCIUM 8.2 mg/dL (8.5-10.1); CARBON DIOXIDE 35.3 mmol/L (21.0-32.0); CREATININE - SERUM 0.9 mg/dL (0.6-1.3); POTASSIUM - SERUM 4.3 mmol/L (3.5-5.1)
--- NOTE | 2016-06-13 07:00 | NUR ---
REPORT RECIEVED AT THIS TIME. PATIENT IN BED WITH IV INTACT. NO COMPLAINTS. OXIMIZER ON. CALL LIGHT WITHIN REACH.
[2016-06-13 08:40] VITALS: BP 106/53
[2016-06-13 12:43] VITALS: BP 118/60
[2016-06-13 16:26] VITALS: BP 122/70
[2016-06-13 19:00] VITALS: BP 118/51
--- NOTE | 2016-06-13 22:20 | NUR ---
REPORT GIVEN TO GLORIA OBRIEN AT THIS TIME. PATIENT IN BED WITH IV INTACT. NO COMPLAINTS OXIMIZER ON. CALL LIGHT WITHIN REACH.
--- NOTE | 2016-06-13 23:54 | NUR ---
AWAKE ALERT ORIENTED SR UP X2 CALL LIGHT WITHIN REACH. IV SALINE LOCKED RT HAND PT IN DROPLET ISOLATION O2 ON 7 L/M PER OXIMYZER. TELM. SHOWS SR W/BBB HR 76-80.
--- NOTE | 2016-06-14 00:31 | NUR ---
UP AD SUKHWINDER TO BR VOIDS WELL. RETURNS TO BED. MED GIVEN PER MAY.
--- NOTE | 2016-06-14 01:53 | NUR ---
IV PULLED OUT ACCIDENTLY BY PATIENT RESITED TO LEFT HAND #22G ANGIOCATH X2 ATTEMPTS. RESUMED IV FLUIDS.
--- NOTE | 2016-06-14 04:47 | NUR ---
UP TO BR. MIN ASSIST REQUIRED. DENIES NEEDS AT PRESENT. BED LOW CALL LIGHT IN REACH.
[2016-06-14 05:49] LABS: BASOPHILS 0 % (0.0-2.0); EOSINOPHILS 0 % (0-7); HEMATOCRIT 33.3 % (36.0-48.0); HEMOGLOBIN 9.7 g/dL (12-16); IMMATURE GRANULOCYTES 0.4 % (0-5); LYMPHOCYTES 8.1 % (15-50); MCH 21.8 pg (26.0-34.0); MCHC 29.1 g/dL (31.0-37.0); MCV 74.8 fL (80.0-100.0); MEAN PLATELET VOLUME 10.1 fL (7.4-10.4); NEUTROPHILS 82.5 % (40-80); PLATELET COUNT 254 10x3/uL (130-400); RBC 4.45 10x6/uL (4.00-5.40); RDW 19.2 % (11.5-14.5)
[2016-06-14 06:08] LABS: WBC 9.4 10x3/uL (4.8-10.8)
[2016-06-14 06:09] LABS: CALCIUM 8.4 mg/dL (8.5-10.1); CARBON DIOXIDE 37.3 mmol/L (21.0-32.0); CREATININE - SERUM 0.9 mg/dL (0.6-1.3); POTASSIUM - SERUM 4.3 mmol/L (3.5-5.1)
[2016-06-14 06:16] LABS: MAGNESIUM - SERUM 2.6 mg/dL (1.8-2.4)
[2016-06-14 08:32] VITALS: BP 125/70
--- NOTE | 2016-06-14 09:09 | NUR ---
SCHEDULED MEDICATIONS ADMINISTERED AT THIS TIME. ASSESSMENT PERFORMED PER FLOW SHEET. PT IS UP AD SUKHWINDER. REMAINS ON 7L OF OXYGEN VIA OXYMIZER. DROPLET ISOLATION FOR FLU A. DENIES QUESTIONS OR CONCERNS A THIS TIME. CALL LIGHT IN REACH, WILL CONITNUE WITH PLAN OF CARE.
[2016-06-14 11:42] VITALS: BP 119/62
[2016-06-14 15:15] VITALS: BP 125/77
--- NOTE | 2016-06-14 15:32 | NUR ---
NUTRITION MONITORING & EVAL CHART REVIEWED. PT REMAINS IN ISOLATION. GOOD INTAKE AHA DIET. CONTINUES TO BE ASSESSED AT LOW NUTRITIONAL RISK. RD FOLLOWING
--- NOTE | 2016-06-14 17:17 | NUR ---
SCHEDULED MEDICATIONS ADMINISTERED AT THIS TIME. IV TO LEFT HAND PATENT WITH NO S/S OF INFILTRATION PRESENT. REMAINS IN DROPLET ISOLATION. DENIES NEEDS AT THIS TIME. CALL LIGHT IN REACH, WILL CONTINUE WITH PLAN OF CARE.
--- NOTE | 2016-06-14 22:40 | NUR ---
PATIENT RESTING IN BED. NO SIGNS OF DISTRESS NOTED. SCHEDULED MEDS GIVEN. SHIFT ASSESSMENT COMPLETED. DENIES ANY NEEDS AT THIS TIME. BED LOW. CALL LIGHT IN REACH
[2016-06-15] VITALS: BP 125/63
--- NOTE | 2016-06-15 06:10 | NUR ---
PT REMAINS IN DROPLET ISOLATION . THEY ARE ASLEEP WOTJ S;OGJT;U ;ABPRED RESPIRATIONS AND AN OXYMIZER IN PLACE. THE BED IS LOW, RAILS UP X'S 2 WITH THE CALL LIGHT AT HAND.
[2016-06-15 07:01] LABS: BASOPHILS 0.1 % (0.0-2.0); EOSINOPHILS 0 % (0-7); HEMATOCRIT 33.2 % (36.0-48.0); HEMOGLOBIN 9.6 g/dL (12-16); IMMATURE GRANULOCYTES 1.4 % (0-5); LYMPHOCYTES 11.2 % (15-50); MCH 21.5 pg (26.0-34.0); MCHC 28.9 g/dL (31.0-37.0); MCV 74.4 fL (80.0-100.0); MEAN PLATELET VOLUME 10.2 fL (7.4-10.4); MONOCYTES 10.7 % (2-11); NEUTROPHILS 76.6 % (40-80); PLATELET COUNT 256 10x3/uL (130-400); RBC 4.46 10x6/uL (4.00-5.40); WBC 8.6 10x3/uL (4.8-10.8)
[2016-06-15 07:09] LABS: CALCIUM 8.1 mg/dL (8.5-10.1); CARBON DIOXIDE 38.5 mmol/L (21.0-32.0); CREATININE - SERUM 0.8 mg/dL (0.6-1.3); MAGNESIUM - SERUM 2.5 mg/dL (1.8-2.4); POTASSIUM - SERUM 4.5 mmol/L (3.5-5.1)
[2016-06-15 07:38] VITALS: BP 127/68
--- NOTE | 2016-06-15 07:55 | NUR ---
AWAKE AND ALERT AT THIS TIME READING THE NEWSPAPER. REMAINS IN CONTACT ISOLATION. OXYGEN ON 4L OXYMIZER. ASSESSMENT PERFORMED PER FLOWSHEET. PT AMBULATES AND POSITIONS INDEPENDENTLY. SRX2 WITH BED IN LOWEST POSITION WITH WHEELS LOCKED. DENIES PAIN OR NEEDS. CALL LIGHT IN REACH, WILL CONTINUE WITH PLAN OF CARE.
--- NOTE | 2016-06-15 09:57 | NUR ---
SCHEDULED MEDICATIONS ADMINISTERED AT THIS TIME. CALL LIGHT IN REACH, REMAINS IN ISOLATION. DENIES NEEDS. WILL CONTINUE WITH PLAN OF CARE.
[2016-06-15 11:18] VITALS: BP 102/50
--- NOTE | 2016-06-15 11:19 | NUR ---
SCHEDULED MEDICATIONS ADMINISTERED AT THIS TIME. DENIES NEEDS OR PAIN AT PRESENT. WILL CONTINUE WITH PLAN OF CARE.
[2016-06-15 15:08] VITALS: BP 124/82
[2016-06-15 19:00] VITALS: BP 148/79
[2016-06-16] VITALS: BP 131/61
--- NOTE | 2016-06-16 01:31 | NUR ---
LYING IN BED AWAKE, NC IN PLACE, DENIES NEEDS, NO DISTRESS NOTED, FALL AND ISOLATION PRECAUTIONS IN PLACE, CL IN REACH
[2016-06-16 03:10] LABS: OVA + PARASITE EXAM Final report (())
[2016-06-16 04:00] VITALS: BP 112/57
--- NOTE | 2016-06-16 07:45 | NUR ---
PATIENT IS AWAKE, ALERT AND ORIENTED X'S 4. RESPIRATIONS ARE EVEN AND UNLABORED ON OXYGEN VIA NASAL CANNULA. PATIENT IS SITTING UP IN BED. DENIES NEEDS. DENIES PAIN. BED IN LOWEST POSITION, CALL LIGHT IN REACH. BED RAILS UP X'S 2.
[2016-06-16 08:21] VITALS: BP 102/41
[2016-06-16 08:47] LABS: BASOPHILS 0.1 % (0.0-2.0); EOSINOPHILS 0 % (0-7); HEMATOCRIT 36.4 % (36.0-48.0); HEMOGLOBIN 10.7 g/dL (12-16); IMMATURE GRANULOCYTES 2.4 % (0-5); LYMPHOCYTES 14.1 % (15-50); MCH 21.9 pg (26.0-34.0); MCHC 29.4 g/dL (31.0-37.0); MCV 74.6 fL (80.0-100.0); MEAN PLATELET VOLUME 10.3 fL (7.4-10.4); MONOCYTES 7.8 % (2-11); NEUTROPHILS 75.6 % (40-80); RBC 4.88 10x6/uL (4.00-5.40); RDW 19.4 % (11.5-14.5)
[2016-06-16 08:48] LABS: PLATELET COUNT 326 10x3/uL (130-400); WBC 11.5 10x3/uL (4.8-10.8)
[2016-06-16 09:08] LABS: ANION GAP 9.6 mmol/L (8-16); CALCIUM 8.6 mg/dL (8.5-10.1); CARBON DIOXIDE 35.9 mmol/L (21.0-32.0); CREATININE - SERUM 0.8 mg/dL (0.6-1.3); MAGNESIUM - SERUM 2.4 mg/dL (1.8-2.4); POTASSIUM - SERUM 4.5 mmol/L (3.5-5.1)
[2016-06-16 11:51] VITALS: BP 123/56
--- NOTE | 2016-06-16 13:06 | NUR ---
IV SWOLLEN, NOT FLUSHING. D/C WITH CATH INTACT. PATIENT STATED SHE WANTS TO TAKE A SHOWER BEFORE GETTING ANOTHER IV.
--- NOTE | 2016-06-16 13:50 | NUR ---
STARTED IV TO RIGHT FOREARM X'S 1 ATTEMPT, 22G
[2016-06-16 17:27] VITALS: BP 122/83
[2016-06-16 20:00] VITALS: BP 108/58
[2016-06-17] VITALS: BP 114/51
--- NOTE | 2016-06-17 02:20 | NUR ---
RESTING WITH EYES CLOSED, NO DISTRESS NOTED, CL IN REACH
[2016-06-17 04:00] VITALS: BP 139/69
[2016-06-17 07:14] LABS: BASOPHILS 0.6 % (0.0-2.0); EOSINOPHILS 0 % (0-7); HEMATOCRIT 34.6 % (36.0-48.0); IMMATURE GRANULOCYTES 2.5 % (0-5); LYMPHOCYTES 11.4 % (15-50); MCH 21.9 pg (26.0-34.0); MCHC 28.9 g/dL (31.0-37.0); MCV 75.9 fL (80.0-100.0); MEAN PLATELET VOLUME 10.6 fL (7.4-10.4); MONOCYTES 8.7 % (2-11); NEUTROPHILS 76.8 % (40-80); PLATELET COUNT 279 10x3/uL (130-400); RBC 4.56 10x6/uL (4.00-5.40); RDW 20.1 % (11.5-14.5); WBC 11.4 10x3/uL (4.8-10.8)
[2016-06-17 07:20] LABS: ANION GAP 8.2 mmol/L (8-16); CALCIUM 8.2 mg/dL (8.5-10.1); CARBON DIOXIDE 37.2 mmol/L (21.0-32.0); CREATININE - SERUM 0.8 mg/dL (0.6-1.3)
[2016-06-17 07:21] LABS: POTASSIUM - SERUM 5.4 mmol/L (3.5-5.1)
--- NOTE | 2016-06-17 07:50 | NUR ---
PATIENT SITTING UP IN THE BED. PATIENT IS AWAKE, ALERT, AND ORIENTED X4. NO COMPLAINTS OF PAIN AT PRESENT TIME. PATIENT IS ON DROPLET PRECAUTIONS. PATIENT STATES SHE IS JUST WAITING ON HER BREAKFAST TRAY AND DENIES ANY OTHER NEEDS AT PRESENT TIME. CALL LIGHT IN PATIENT'S REACH. WILL MONITOR.
--- NOTE | 2016-06-17 09:42 | NUR ---
PATIENT SITTING UP IN BED. DROPLET PRECAUTIONS IN PLACE. SCHEDULED MORNING MEDICATIONS GIVEN TO PATIENT. PATIENT TOLERATED WELL. PATIENT DENIES ANY NEEDS AT PRESENT TIME. CALL LIGHT IN REACH. WILL MONITOR PATIENT
[2016-06-17 09:44] VITALS: BP 125/73
[2016-06-17 11:11] VITALS: BP 166/61
[2016-06-17 15:50] VITALS: BP 116/57
--- NOTE | 2016-06-17 16:17 | NUR ---
PATIENT RESTING IN BED. ASSESSMENT COMPLETED. SEE FLOWSHEET FOR ANY DETAILS. TELEMETRY IN PLACE SHOWING NORMAL SINUS RHYTHM WITH A RATE OF 78. DROPLET PRECAUTIONS IN PLACE. OXYGEN IN PLACE AT 4L PER NC. PATIENT DENIES ANY NEEDS AT PRESENT TIME. CALL LIGHT IN REACH. WILL MONITOR.
--- NOTE | 2016-06-17 19:32 | NUR ---
REC'D. IN BED HOB UP 40 DEGREE'S.RESP. SHALLOW.WITH SOME SOB ON GETTING UP TO BATHROOM.NO RESP. DISTRESS OBSERVED. WILL CONTINUE TO MONITOR FOR ANY CHGES. IN RESP. STATUS AND FOLLOW CURRENT PLAN OF CARE.
[2016-06-17 20:32] VITALS: BP 139/82
--- NOTE | 2016-06-18 00:30 | NUR ---
PT IN BED WITH NO DISTRESS. RESPIRATIONS EVEN AND UNLABORED. ISOLATION PRECAUTIONS IN PLACE. SIDE RAILS ARE UP X 2. BED IS LOW. CALL LIGHT IS IN REACH.
[2016-06-18 04:00] VITALS: BP 116/58
[2016-06-18 05:49] LABS: BASOPHILS 0.1 % (0.0-2.0); EOSINOPHILS 0 % (0-7); HEMATOCRIT 34.6 % (36.0-48.0); IMMATURE GRANULOCYTES 2.7 % (0-5); LYMPHOCYTES 10.8 % (15-50); MCH 21.7 pg (26.0-34.0); MCHC 28.9 g/dL (31.0-37.0); MCV 75.2 fL (80.0-100.0); MEAN PLATELET VOLUME 10.1 fL (7.4-10.4); MONOCYTES 8.4 % (2-11); PLATELET COUNT 313 10x3/uL (130-400); RDW 19.6 % (11.5-14.5); WBC 12.7 10x3/uL (4.8-10.8)
[2016-06-18 06:18] LABS: ALBUMIN 2.9 g/dL (3.4-5.0); ANION GAP 6.2 mmol/L (8-16); BILIRUBIN - TOTAL 0.29 mg/dL (0.2-1.3); CALCIUM 8.2 mg/dL (8.5-10.1); CARBON DIOXIDE 37.1 mmol/L (21.0-32.0); CREATININE - SERUM 0.8 mg/dL (0.6-1.3); POTASSIUM - SERUM 5.3 mmol/L (3.5-5.1); PROTEIN - SERUM 5.8 g/dL (6.4-8.2)
[2016-06-18 07:47] VITALS: BP 114/78
--- NOTE | 2016-06-18 08:14 | NUR ---
AWAKE AND ALERT. ORIENTED X3. NO C/O AT THIS TIME.LUNGS HAVE WHEEZES THROUGHOUT LUNG PRICE WITH OCCASSIONAL DRY COUGH NOTED. SKIN IS INTACT WITHOUT REDNESS. IV TO LEFT WRIST PATENT WITHOUT REDNESS AT INSERTION SITE. DENIES NEEDS. BREAKFAST SERVED IN ROOM.
--- NOTE | 2016-06-18 09:30 | NUR ---
AMBULATED IN HALLWAY WITH PT. NO C/O AT THIS TIME.
--- NOTE | 2016-06-18 11:36 | NUR ---
Rehab Note- Acute Rehab Prescreen order received. The patient appears to be a good IRF candidate. Will plan on accepting the patient to rehab today if the physician feels she is medically stable for acute rehab at this time. Thank you for this referral! Mame Ricketts RN Clinical Liaison, [facility] Rehab/[facility]
[2016-06-18 13:32] VITALS: BP 107/54
[2016-06-18] MEDS ORDERED: BROVANA15 MCG/2 M INH (13:44)
[2016-06-18] MEDS ORDERED: ATROVENT 0.02%2.5 ML UPD (13:44)
[2016-06-18] MEDS ORDERED: XOPENEX 0.0.63 MG/3 UPD (13:44)
[2016-06-18] MEDS ORDERED: FERROUS SULFAT325 MG PO (13:45)
[2016-06-18] MEDS ORDERED: FLUTICASONE PRO16 GM NASAL (13:46)
[2016-06-18] MEDS ORDERED: BENZONATATE200 MG PO (13:46)
[2016-06-18] MEDS ORDERED: MUCINEX DM ER1 EAC1 PO (13:46)
[2016-06-18] MEDS ORDERED: FUROSEMIDE10 MG/M1 IV (13:46)
[2016-06-18] MEDS ORDERED: PULMICORT0.5 MG/21 UPD (13:46)
[2016-06-18] MEDS ORDERED: FLORAJEN3 CAPS460 MG PO (13:47)
[2016-06-18] MEDS ORDERED: SOLU-MEDRO40 MG/1 M1 IV (13:47)
[2016-06-18] MEDS ORDERED: PROTONIX I40 MG/VIAL IV (13:47)
--- NOTE | 2016-06-18 15:11 | NUR ---
CM REASSESSMENT NOTE: PATIENT IS DISCHARGING TO IP REHAB TODAY. IMM SIGNED
[2016-06-18 16:09] VITALS: BP 125/66
--- NOTE | 2016-06-18 19:00 | NUR ---
REPORT CALLED TO DONNIE OBRIEN ON REHAB. ALL QUESTIONS ANSWERED. TRANSFERRED VIA WC TO ROOM 1108B.
== END 2016-06-18 19:00 | DRG 291 ==
LOC: D.ER 10:59 → D.MS 16:26
PROVIDERS: Emergency Medicine; Family Medicine; Internal Medicine Pulmonary Disease; ADMIT Family Medicine
DX: I11.0 Hypertensive heart disease with heart failure (principal); J96.22 Acute and chronic respiratory failure with hypercapnia; J96.21 Acute and chronic respiratory failure with hypoxia; J10.08 Influenza due to other identified influenza virus with other specified pneumonia; J15.6 Pneumonia due to other Gram-negative bacteria; J44.0 Chronic obstructive pulmonary disease with (acute) lower respiratory infection; J44.1 Chronic obstructive pulmonary disease with (acute) exacerbation; J98.11 Atelectasis; E87.2 Acidosis; Q21.0 Ventricular septal defect; I50.23 Acute on chronic systolic (congestive) heart failure; I48.91 Unspecified atrial fibrillation; D64.9 Anemia, unspecified; I08.1 Rheumatic disorders of both mitral and tricuspid valves; M81.0 Age-related osteoporosis without current pathological fracture; Z95.0 Presence of cardiac pacemaker; G47.33 Obstructive sleep apnea (adult) (pediatric); I27.2 Other secondary pulmonary hypertension; J30.9 Allergic rhinitis, unspecified; E78.5 Hyperlipidemia, unspecified; F41.9 Anxiety disorder, unspecified; Z99.81 Dependence on supplemental oxygen; Z87.891 Personal history of nicotine dependence

== ENCOUNTER 2016-06-18 19:27 | Inpatient (IN) | payer MEDICARE ==
[~2016-06-18] VITALS: Ht 160 cm; Wt 78.9 kg
--- NOTE | 2016-06-18 19:10 | NUR ---
RECEIVED PATIENT TO BEED 1111B FROM [facility]. SR UP X3 WITH WATER AND CALL LIGHT IN REACH. PATIENT DENIES CURRENT NEEDS. EMPLACED O2 PER N/C @ 4L FLOW. PATIENT WAS ACCOMPANIED BY ACUTE UNIT STAFF AND A FEMALE FAMILY MEMBER. BED ALARM IS ARMED. INSTRUCTED PATIENT SHE IS TO CALL FOR ASSIST AND NOT TO ATTEMPT OOB ALONE, FOR HER SAFETY. SAYS SHE UNDERSTANDS.
[~2016-06-18 19:27] MED LIST changes: +AMBIEN10 MG PO; +ATROVENT 0.02%2.5 ML UPD; +BENZONATATE200 MG PO; +FERROUS SULFAT325 MG PO; +FLORAJEN3 CAPS460 MG PO; +FUROSEMIDE10 MG/M1 IV; +PROTONIX I40 MG/VIAL IV; +SOLU-MEDRO40 MG/1 M1 IV; +XOPENEX 0.0.63 MG/3 UPD
[2016-06-18 21:45] VITALS: BP 144/72; BMI 30.9
--- NOTE | 2016-06-18 22:00 | NUR ---
TOOK VS AND INITIATED ADMISSION ASSESSMENT. GAVE PATIENT SCHEDULED HS MEDS. TOLD HER I WILL RETURN TO SPEND TIME PERFORMING HER ADMISSION ASSESSMENT SOON I PASS MEDS TO MY OTHER PATIENTS. SAYS SHE UNDERSTANDS.
--- NOTE | 2016-06-19 | NUR ---
ADMISSION ASSESSMENT AND HISTORY COMPLETE. GAVE PATIENT AMBIEN 5MG PO PER HER REQUEST FOR SLEEPING PILL. ASSISTED HER TO AMBULATE TO BR TO URINATE, AND THEN BACK TO BED.
--- NOTE | 2016-06-19 02:10 | NUR ---
RESTING IN BED ON LEFT SIDE. NO EVIDENT DISCOMFORT.
--- NOTE | 2016-06-19 05:38 | NUR ---
PATIENT TOOK SCHEDULED MEDS PO. FLUSHED LEFT FA S/L. ASSISTED PATIENT TO AMBULATE CONTACT GUARD ASSIST TO BR TO URINATE, AND THEN BACK TO BED. DENIES FURTHER NEEDS.
[2016-06-19 06:51] LABS: BASOPHILS 0.1 % (0.0-2.0); EOSINOPHILS 0 % (0-7); HEMATOCRIT 35.5 % (36.0-48.0); HEMOGLOBIN 10.3 g/dL (12-16); IMMATURE GRANULOCYTES 2.7 % (0-5); LYMPHOCYTES 11.5 % (15-50); MCH 21.9 pg (26.0-34.0); MCV 75.5 fL (80.0-100.0); MONOCYTES 8.8 % (2-11); NEUTROPHILS 76.9 % (40-80); PLATELET COUNT 330 10x3/uL (130-400); RDW 20.2 % (11.5-14.5); WBC 13.9 10x3/uL (4.8-10.8)
[2016-06-19 07:10] LABS: ANION GAP 7.8 mmol/L (8-16); CALCIUM 8.6 mg/dL (8.5-10.1); CARBON DIOXIDE 36.1 mmol/L (21.0-32.0); POTASSIUM - SERUM 4.9 mmol/L (3.5-5.1)
--- NOTE | 2016-06-19 07:32 | NUR ---
RESTING QUIETLY IN BED, EYES CLOSED. CALL LIGHT IN REACH
[2016-06-19 09:47] VITALS: Ht 160 cm; Wt 78.9 kg
--- NOTE | 2016-06-19 12:05 | NUR ---
SITTING IN ROOM EATING LUNCH. DENIES NEEDS. CALL LIGHT IN HAND
[2016-06-19 19:12] VITALS: BP 135/80
--- NOTE | 2016-06-19 19:30 | NUR ---
IN BED, AWAKE. DENIES NEEDS. WANTS TO SIGN BED ALARM WAIVER TONIGHT. WILL PROVIDE THE FORM TO HER TONIGHT.
--- NOTE | 2016-06-19 21:15 | NUR ---
ASSESSMENT AND HS MEDS COMPLETE. GAVE PATIENT SCHEDULED HS MEDS. SIGNED BED ALARM WAIVER WE DISCUSSED EARLIER. ACKNOWLEDGES THAT IF SHE FEELS UNSTABLE. SHE WILL NOT ATTEMPT UP WITHOUT ASSIST.
--- NOTE | 2016-06-19 22:20 | NUR ---
RESTING IN BED, EYES CLOSED. NO DISTRESS NOTED.
--- NOTE | 2016-06-20 00:15 | NUR ---
REMAINS IN BED, RESTING QUIETLY, EYES CLOSED.
--- NOTE | 2016-06-20 02:00 | NUR ---
IN BED, EYES CLOSED.
--- NOTE | 2016-06-20 04:35 | NUR ---
CONTINUES IN BED, EYES CLOSED. NO EVIDENT DISTRESS.
--- NOTE | 2016-06-20 05:35 | NUR ---
RESTING IN BED, EYES CLOSED.
[2016-06-20 06:55] LABS: BASOPHILS 0.1 % (0.0-2.0); EOSINOPHILS 0 % (0-7); HEMATOCRIT 37.1 % (36.0-48.0); HEMOGLOBIN 10.8 g/dL (12-16); LYMPHOCYTES 7.8 % (15-50); MCHC 29.1 g/dL (31.0-37.0); MCV 75.4 fL (80.0-100.0); MEAN PLATELET VOLUME 10.3 fL (7.4-10.4); MONOCYTES 5.4 % (2-11); NEUTROPHILS 83.7 % (40-80); PLATELET COUNT 354 10x3/uL (130-400); RBC 4.92 10x6/uL (4.00-5.40); RDW 20.7 % (11.5-14.5); WBC 16.6 10x3/uL (4.8-10.8)
[2016-06-20 07:12] LABS: ANION GAP 9.3 mmol/L (8-16); CALCIUM 8.4 mg/dL (8.5-10.1); CARBON DIOXIDE 32.2 mmol/L (21.0-32.0); CREATININE - SERUM 0.8 mg/dL (0.6-1.3); POTASSIUM - SERUM 5.5 mmol/L (3.5-5.1)
--- NOTE | 2016-06-20 08:00 | NUR ---
UP INDEPENDENT IN ROOM.DENIES NEEDS.
[2016-06-20 08:44] VITALS: BP 126/61
--- NOTE | 2016-06-20 12:00 | NUR ---
EATING LUNCH,CL IN REACH.
--- NOTE | 2016-06-20 14:31 | NUR ---
CARE TEAM MEETING: PATIENT TENATIVE DISCHARGE DATE IS 06/28/16, PATIENT PCP IS DR. AUSTIN SHE HAS USED [facility] AND [facility] CALLS. SHE HAS A ROLLING WALKERM O2. SHE HAS BEEN GIVEN INFORMATION REGARDING MEALS ON WHEELS. WILL CONTINUE TO FOLLOW WITH PATIENT UNTIL DISCHARGED
--- NOTE | 2016-06-20 19:45 | NUR ---
IN BED AFTER RECENT RETURN FROM TOILETING. DENIES NEEDS.
[2016-06-20 20:51] VITALS: BP 158/88
--- NOTE | 2016-06-20 21:29 | NUR ---
ASSESSMENT AND HS MEDS COMPLETE. DENIES CURRENT NEEDS.
--- NOTE | 2016-06-20 22:25 | NUR ---
RESTING IN BED, EYES CLOSED.
--- NOTE | 2016-06-21 00:25 | NUR ---
RESTING QUEITLY IN BED, EYES CLOSED.
--- NOTE | 2016-06-21 01:45 | NUR ---
RESTING IN BED, SNORING SOFTLY.
--- NOTE | 2016-06-21 04:00 | NUR ---
REMAINS IN BED, EYES CLOSED. RESPIRATIONS UNLABORED.
--- NOTE | 2016-06-21 05:45 | NUR ---
CONTINUES IN BED, EYES CLOSED. NO EVIDENT DISCOMFORT.
--- NOTE | 2016-06-21 08:00 | NUR ---
SITTING UP ON SIDE OF BED,BREAKFAST GIVEN.
--- NOTE | 2016-06-21 08:38 | RHP ---
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 HISTORY OF PRESENT ILLNESS: The patient is an elderly female patient who presents secondary to hypercapnic respiratory failure and hospital-acquired pneumonia. She had a chest x-ray on June 10, which showed bibasilar infiltrate. She is a pleasant 80-year-old female who sees Dr. Wagner, who presented to Emergency Room on June 10 with a 5 to 6-day history of shortness of breath, coughing and fever. She was seen in walk-in clinic on June 08 and on June 09, was given shots of antibiotics and steroids, also started on p.o. antibiotics. She has failed to improve and presents to the Emergency Room on ____ with fever of 103.7. She tested positive for flu. Chest x-ray revealed pneumonia. She is admitted for failure to treat as an outpatient. She has been seen in consultation by pulmonary. The patient was independent with ADLs and mobility prior to her hospitalization with use of 4 liters nasal cannula. She is currently standby assist to moderate assist with ADLs and moderate to max assist for mobility and requiring up to 6 liters of oxygen via nasal cannula. COMORBIDITIES: In this patient include acute systolic heart failure, influenza, acute systolic congestive heart failure, COPD, pneumonia, hypoxia, leukocytosis, elevated BNP, sinusitis, bronchitis, congestive heart failure, cardiomegaly, hypertension, atherosclerosis, anemia of unknown etiology, hyperlipidemia, VSD, pacemaker placement, coronary artery disease, chronic AFib and history of a stent placed in the past. PAST MEDICAL HISTORY: Significant for COPD, has history of tobacco use, but quit 20 years ago; hypertension, intermittent AFib, chronic debility, generalized anxiety, sleep apnea, chronic insomnia and oxygen dependence. PAST SURGICAL HISTORY: Includes cardiac stents and angioplasty, appendectomy, hysterectomy, varicose vein removal, right wrist fracture and right shoulder fracture. ALLERGIES: AVELOX AND SULFA. SHE IS ALSO ALLERGIC TO LEVOMEFOLATE. CURRENT MEDICATIONS: Include chewable aspirin 81 mg daily, spironolactone 25 mg daily, Protonix 40 mg daily. She is on methylprednisolone/Solu-Medrol 40 mg IV daily. She is on daily, isosorbide 30 mg daily, furosemide 20 mg t.i.d. She is on Flonase nasal spray, Plavix 75 mg daily, saline flushes as needed, Mucinex D b.i.d., zolpidem 5 mg at bedtime, Pravachol 80 mg at bedtime, potassium 10 mEq b.i.d., polyethylene glycol 17 grams in 8 ounces of water daily. She is on Singulair 10 mg daily, mag 400 mg b.i.d., lorazepam 0.5 mg b.i.d., Xopenex updrafts p.r.n., Atrovent updrafts as needed, ferrous sulfate 325 mg b.i.d., Coreg 3.125 mg daily, Pulmicort 0.5 mg b.i.d., Tessalon Perles HISTORY AND PHYSICAL [id number] RIKKI LUCERO ANN 200 mg t.i.d., Brovana 15 mcg b.i.d. and amiodarone 200 mg b.i.d. HABITS: No current alcohol or tobacco use. FAMILY HISTORY: Noncontributory. SOCIAL HISTORY: The patient hopes to return back home with her . They live here in [place]. REVIEW OF SYSTEMS: GENERAL: Does complain of weakness and fatigue. HEENT: Does complain cold, cough and congestion. CARDIOVASCULAR: Denies any chest pain. LUNGS: Does complain of shortness of breath. PHYSICAL EXAMINATION: VITAL SIGNS: Stable, afebrile. GENERAL: Elderly female in no acute distress, alert upon exam. HEENT: Normocephalic and atraumatic. Mucosa moist. NECK: Supple. No lymphadenopathy. LUNGS: Clear in upper perez, although she does have decreased breath sounds in the bases. CARDIOVASCULAR: Regular rate and rhythm at this time. ABDOMEN: Benign. EXTREMITIES: No clubbing, cyanosis, or edema. NEUROLOGIC: Intact. LABORATORY DATA: Her white count is 14.9, H&H of 10 and 35, and platelet count was noted to be 330. Her MCV is noted to be decreased at 75.5. Her sodium is 140, potassium 4.9, BUN and creatinine of 27 and 1.0 and blood sugar is noted to be 91. ASSESSMENT: This is a 80-year-old female patient admitted to rehab with a working diagnosis of severe chronic obstructive pulmonary disease with acute exacerbation, [id number] hypoxic and hypercapnic respiratory failure, and hospital-acquired pneumonia: The patient has potential to make improvement. We instituted the following multidisciplinary therapies including, but not limited to, physical, occupational, respiratory, speech, nutritional services, prosthetics and orthotics. Given her complex condition and risk for more complications, rehabilitation services cannot be provided at a low level of care such as a alf facility. PLAN: 1. Admit to [facility] rehab for intensive inpatient therapy to include the following disciplines: A. Physical therapy to improve gait, all transfer skills and bed mobility to a modified independent level. B. Occupational therapy to improve activities of daily living to a modified independent level. C. Case management to assist with discharge planning and placement options. D. Nutrition to assist with nutritional needs. E. Rehabilitation nursing to assist in monitoring the patient's underlying medical conditions and to assist with any type of bowel or bladder management. 2. The patient's current medication and medical care will be continued. 3. We will go ahead and check a vitamin D and calcium level today. HISTORY AND PHYSICAL [id number] RIKKI LUCERO 4. We will go ahead and change IV antibiotics and steroids over to p.o. where appropriate. 5. We will go ahead and discuss this patient during care team staff meeting this week. TRANSINT:[id number] Voice Confirmation ID: [id number] DOCUMENT ID: [id number] AMANDA CORRIGAN MD at [id number] CC: [id number] DICTATION DATE: 06/19/16 1149 RADIO TOWER TECHNICIAN: 06/19/16 1612 ADM IN [facility] [address] [place] [address]
[2016-06-21 10:36] VITALS: BP 105/68
--- NOTE | 2016-06-21 16:00 | NUR ---
RESTING QUIETLY.CL IN REACH
--- NOTE | 2016-06-21 19:30 | NUR ---
PT SITTING UP ON SIDE OF BED READING NEWSPAPER. PT DENIES NEEDS. WCTM.
[2016-06-21 19:38] VITALS: BP 124/70
--- NOTE | 2016-06-21 21:40 | NUR ---
PT HS MEDS ADMINISTERED. PT DENIES NEEDS. BED LOW. CL IN REACH.
--- NOTE | 2016-06-21 22:40 | NUR ---
PT TRIN NICK DAVIS AND REC'D. WCTM. BED LOW. CL IN REACH.
--- NOTE | 2016-06-22 00:15 | NUR ---
PT RESTING, EYES CLOSED. BED LOW. CL IN REACH.
--- NOTE | 2016-06-22 02:30 | NUR ---
PT RESTING, EYES CLOSED. BED LOW. CL IN [facility].
[2016-06-22 06:37] LABS: BASOPHILS 0.1 % (0.0-2.0); EOSINOPHILS 0 % (0-7); HEMATOCRIT 35.8 % (36.0-48.0); HEMOGLOBIN 10.4 g/dL (12-16); IMMATURE GRANULOCYTES 2.4 % (0-5); LYMPHOCYTES 6.1 % (15-50); MCH 22.2 pg (26.0-34.0); MCHC 29.1 g/dL (31.0-37.0); MCV 76.3 fL (80.0-100.0); MONOCYTES 4.3 % (2-11); NEUTROPHILS 87.1 % (40-80); PLATELET COUNT 308 10x3/uL (130-400); RBC 4.69 10x6/uL (4.00-5.40); RDW 21.3 % (11.5-14.5); WBC 18.7 10x3/uL (4.8-10.8)
[2016-06-22 06:55] LABS: ANION GAP 7.1 mmol/L (8-16); CALCIUM 8.2 mg/dL (8.5-10.1); CARBON DIOXIDE 33.9 mmol/L (21.0-32.0)
--- NOTE | 2016-06-22 07:30 | NUR ---
RESTING QUIETLY IN BED. CALL LIGHT IN REACH
[2016-06-22 08:42] VITALS: BP 120/60
--- NOTE | 2016-06-22 10:46 | NUR ---
PATIENT ALERT/ORIENT X4. GIVEN A OCCUPATIONL SHOWER BY OT. HAS VOICED NO PAIN/DISC AT THIS TIME
--- NOTE | 2016-06-22 13:41 | NUR ---
PATIENT BACK IN REHAB ROOM, WORKING WITH PHYSICAL THERAPIST.
--- NOTE | 2016-06-22 17:05 | NUR ---
PATIENT SITTING UP AT THE SIDE OF THE BED WORKING ON Mompery. OXYGEN ON AT 4L PER N/C.
[2016-06-22 19:38] VITALS: BP 159/77
--- NOTE | 2016-06-22 20:10 | NUR ---
PT. IN BED WITH HOB UP FOR COMFORT AND IS WATCHING TV. ASSESSMENT COMPLETED. PT. REQUESTING HER SLEEPING PILL TONIGHT WITH HER NIGHT TIME MEDICATIONS. CALL LIGHT WITHIN REACH.
--- NOTE | 2016-06-22 23:04 | NUR ---
PT. IN BED WITH HOB UP FOR COMFORT WATCHING TV AND DENIES ANY NEEDS AT THIS TIME AND HAS HER CALL LIGHT WITHIN REACH.
--- NOTE | 2016-06-23 03:05 | NUR ---
PT. IN BED WITH HOB UP FOR COMFORT WITH EYES CLOSED AND RESP. EVEN. CALL LIGHT WITHIN REACH.
[2016-06-23 07:00] VITALS: BP 111/63
--- NOTE | 2016-06-23 08:00 | NUR ---
PT IS RESTING IN BED WITH EYES OPEN. ALERT AND ORIENTED X 4. DENIES ACUTE DISCOMFORT AT THIS TIME. FEEDING SELF BREAKFAST WITHOUT DIFFICULTY. O2 IS ON @ 4 LPM PER NC. SR'S ARE UP X 3 IN BED. CALL LIGHT AND BEDSIDE TABLE ARE WITHIN EASY REACH.
--- NOTE | 2016-06-23 12:42 | NUR ---
PT RESTING IN BED FEEDING SELF LUNCH. NO NEEDS VOICED.
--- NOTE | 2016-06-23 15:00 | NUR ---
PT IS RESTING IN BED WITH EYES OPEN. READING A MAGAZINE. NO NEEDS VOICED.
--- NOTE | 2016-06-23 19:55 | NUR ---
PT. IN BED WITH HOB UP FOR COMFORT AND IS WATCHING TV. O2 ON @ 4L/MIN AND PT. DENIES AND NEEDS AT THIS TIME. ASSESSMENT COMPLETED. CALL LIGHT REMAINS WITHIN REACH. PT. REQUESTING VANILLA ICE CREAM A BEDTIME SNACK TONIGHT.
[2016-06-23 20:30] VITALS: BP 147/72
--- NOTE | 2016-06-23 23:24 | NUR ---
PT. IN BED WITH HOB UP FOR COMFORT AND IS STILL WATCHING TV. PT. DENIES ANY NEEDS AT THIS TIME AND HAS HER CALL LIGHT WITHIN REACH.
--- NOTE | 2016-06-24 04:04 | NUR ---
PT. IN BED WITH HOB UP FOR COMFORT WITH EYES CLOSED AND RESP. DEEP AND EVEN. CALL LIGHT WITHIN REACH.
[2016-06-24 07:00] VITALS: BP 104/51
--- NOTE | 2016-06-24 07:30 | NUR ---
RESTING QUIETLY CALL LIGHT IN REACH
--- NOTE | 2016-06-24 08:00 | NUR ---
PT IS RESTING IN BED READING A NEWSPAPER. ALERT AND ORIENTED X 3. DENIES PAIN OR DISCOMFORT. NO SOB NOTED. O2 IS ON @ 4LPM PER NC. SR'S ARE UP X 2 IN BED. CALL LIGHT AND BEDSIDE TABLE ARE WITHIN EASY REACH.
--- NOTE | 2016-06-24 10:08 | NUR ---
PT IS RESTING IN BED WATCHING TV. NO NEEDS VOICED.
--- NOTE | 2016-06-24 13:33 | NUR ---
PT RESTING IN BED WITH EYES OPEN. NO NEEDS VOICED.
--- NOTE | 2016-06-24 18:25 | NUR ---
PT IS RESTING IN BED WATCHING TV. NO NEEDS VOICED. NO DISTRESS NOTED.
--- NOTE | 2016-06-24 19:15 | NUR ---
IN W/C AT BEDSIDE. DENIES NEEDS. O2 CONTINUES @ 4L PER N/C.
[2016-06-24 21:40] VITALS: BP 109/62
--- NOTE | 2016-06-24 21:40 | NUR ---
YVON SEATED AT BEDSIDE. ASSESSMENT AND HS MEDS COMPLETE. GAVE PATIENT AMBIEN 5MG PO FOR SLEEP, PER HER REQUEST. DENIES FURTHER NEEDS.
--- NOTE | 2016-06-25 00:05 | NUR ---
RESTING IN BED, EYES CLOSED. LYING ON LEFT SIDE. NO DISTRESS NOTED.
--- NOTE | 2016-06-25 04:30 | NUR ---
REMAINS IN BED, EYES CLOSED. RESPIRATIONS UNLABORED.
--- NOTE | 2016-06-25 06:00 | NUR ---
PATIENT TOOK SCHEDULED PROTONIX PO. THEN AMBULATED TO BR FOR THE 3RD TIME THIS SHIFT. DENIES NEEDS.
--- NOTE | 2016-06-25 07:00 | NUR ---
PT WAS RECEIVED AT THE BEGINNING OF THIS SHIFT IN BED AWAKE AND ORIENTED X 3. NO VERBAL COMPLAINTS OR CONCERNS AT THIS TIME. VITAL SIGNS; TEMP. 97.6, PULSE 62, RESP. 14, B/P 120/64, 02SAT. 97%. ON 4L 02/MIN PER NC. PT IS VERY INDEPENDENT WITH HER ADL'S. SHE GOES TO THE BATHROOM ON HER OWN. SHE HAS SIGNED A BED ALARM WAIVER. WILL BE MONITORING HER AND ASSISTING PRN WITH ADL'S. CALL LIGHT IS IN REACH.
[2016-06-25 07:24] LABS: BASOPHILS 0.1 % (0.0-2.0); EOSINOPHILS 0.1 % (0-7); HEMATOCRIT 35.9 % (36.0-48.0); HEMOGLOBIN 10.4 g/dL (12-16); IMMATURE GRANULOCYTES 1.5 % (0-5); LYMPHOCYTES 6.7 % (15-50); MCH 22.6 pg (26.0-34.0); MEAN PLATELET VOLUME 10.5 fL (7.4-10.4); MONOCYTES 5.2 % (2-11); NEUTROPHILS 86.4 % (40-80); PLATELET COUNT 249 10x3/uL (130-400); RDW 22.8 % (11.5-14.5); WBC 16.8 10x3/uL (4.8-10.8)
[2016-06-25 07:33] LABS: ANION GAP 4.5 mmol/L (8-16); CALCIUM 8.4 mg/dL (8.5-10.1); CARBON DIOXIDE 38.9 mmol/L (21.0-32.0); CREATININE - SERUM 0.9 mg/dL (0.6-1.3); POTASSIUM - SERUM 5.4 mmol/L (3.5-5.1)
[2016-06-25 13:23] VITALS: BP 120/64
--- NOTE | 2016-06-25 14:22 | NUR ---
PT HAS HAD AN UNEVENTFUL DAY TODAY. SHE HAS GONE TO THERAPY AND PARTICIPATED WELL. WILL CONTINUE TO OBSERVE.
--- NOTE | 2016-06-25 18:33 | NUR ---
PT ATE 100% OF HER SUPPER. SHE IS RESTING IN BED WATCHING TV. NO SIGNS OF ANY DISCOMFORT OR DISTRESS. CALL LIGHT IS WITHIN HER REACH.
--- NOTE | 2016-06-25 19:30 | NUR ---
PATIENT SITTING UP AT BEDSIDE. DENIES NEEDS.
--- NOTE | 2016-06-25 20:30 | NUR ---
ASSESSMENT AND HS MEDS COMPLETE. DENIES NEEDS.
[2016-06-25 20:45] VITALS: BP 127/63
--- NOTE | 2016-06-25 22:20 | NUR ---
GAVE PATIENT CARTON OF 2% MILK, AND ALSO AMBIEN 5MG PO FOR SLEEP. GUADALUPE REQUESTED TO DELAY AMBIEN TO BARRIE OF [facility] WHICH SHE WAS WATCHING ON TV.
--- NOTE | 2016-06-26 00:35 | NUR ---
RESTING IN BED ON LEFT SIDE. EYES CLOSED. NO DISTRESS NOTED.
--- NOTE | 2016-06-26 01:50 | NUR ---
CONTINUES RESTING ON LEFT SIDE. NO DISTRESS EVIDENT.
--- NOTE | 2016-06-26 04:45 | NUR ---
IN BED, EYES CLOSED. RESPIRATIONS UNLABORED.
--- NOTE | 2016-06-26 05:40 | NUR ---
RESTING QUIETLY IN BED AFTER RECENTLY RECEIVING HER SCHEDULED PROTONIX PO TAB. HAD NO COMPLAINTS AT THAT TIME.
--- NOTE | 2016-06-26 07:40 | NUR ---
INTRODUCED SELF TO PT, NO NEEDS NOTED AT THIS TIME, CALL LIGHT WITHIN REACH.
[2016-06-26 08:36] VITALS: BP 112/59
--- NOTE | 2016-06-26 09:40 | NUR ---
MEDICATION GIVEN, PT TOLERATED WELL, PT STATES NO NEEDS AT THIS TIME, WILL CONTINUE TO MONITOR, CALL LIGHT WITHIN REACH.
--- NOTE | 2016-06-26 10:44 | NUR ---
Nutrition Monitoring and Eval: Chart reviewed. Pt is eating 100% meal avg on an AHA diet. Noted K+ elevated. RD will continue to monitor pt progress per policy.
--- NOTE | 2016-06-26 15:21 | NUR ---
MEDICATION GIVEN, PT TOLERATED WELL, WILL CONTINUE TO MONITOR, PT IN THERAPY.
--- NOTE | 2016-06-26 16:54 | NUR ---
MEDICATION GIVEN, PT TOLERATED WELL, WILL CONTINUE TO MONITOR, CALL LIGHT WITHIN REACH.
--- NOTE | 2016-06-26 17:10 | NUR ---
PT STATES HAS A HEADACHE, PAIN MED GIVEN, WILL CONTINUE TO MONITOR, CALL LIGHT WITHIN REACH.
--- NOTE | 2016-06-26 17:11 | NUR ---
PT STATES PAIN AT A 8, MEDICATION GIVEN, WILL CONTINUE TO MONITOR, CALL LIGHT WITHIN REACH.
--- NOTE | 2016-06-26 17:19 | NUR ---
PT UP AT BEDSIDE IN , CL AT SIDE. DENIES NEEDS AT PRESENT. RESP EVEN AND UNLAB
--- NOTE | 2016-06-26 19:00 | NUR ---
IN BED, AWAKE. WATCHING TV. O2 CONTINUES PER N/C @ 4L FLOW.
[2016-06-26 19:16] VITALS: BP 118/70
--- NOTE | 2016-06-26 21:45 | NUR ---
ASSESSMENT AND HS MEDS COMPLETE. DENIES CURRENT NEEDS. GAVE PATIENT AMBIEN 5MG PO FOR SLEEP.
--- NOTE | 2016-06-26 23:50 | NUR ---
RESTING QUIETLY IN BED ON LEFT SIDE. NO DISTRESS NOTED.
--- NOTE | 2016-06-27 02:40 | NUR ---
RESTING IN BED ON LEFT SIDE, EYES CLOSED. NO DISTRESS NOTED.
[2016-06-27 06:26] LABS: BASOPHILS 0.1 % (0.0-2.0); EOSINOPHILS 0.1 % (0-7); HEMATOCRIT 35.2 % (36.0-48.0); HEMOGLOBIN 10.1 g/dL (12-16); IMMATURE GRANULOCYTES 1.1 % (0-5); LYMPHOCYTES 6.7 % (15-50); MCH 22.7 pg (26.0-34.0); MCHC 28.7 g/dL (31.0-37.0); MCV 79.3 fL (80.0-100.0); MEAN PLATELET VOLUME 10.3 fL (7.4-10.4); MONOCYTES 4.7 % (2-11); NEUTROPHILS 87.3 % (40-80); PLATELET COUNT 242 10x3/uL (130-400); RBC 4.44 10x6/uL (4.00-5.40)
[2016-06-27 06:27] LABS: WBC 12.4 10x3/uL (4.8-10.8)
[2016-06-27 06:45] LABS: ANION GAP 3.9 mmol/L (8-16); CALCIUM 8.1 mg/dL (8.5-10.1); CARBON DIOXIDE 36.4 mmol/L (21.0-32.0); CREATININE - SERUM 0.8 mg/dL (0.6-1.3)
[2016-06-27 06:52] LABS: POTASSIUM - SERUM 4.3 mmol/L (3.5-5.1)
--- NOTE | 2016-06-27 07:31 | NUR ---
PT IS RESTING IN BED WITH EYES OPEN. ALERT AND ORIENTED X 4. DENIES ANY PAIN OR DISCOMFORT. NO SOB NOTED ON ROOM AIR. SR'S ARE UP X 2 IN BED. CALL LIGHT AND BEDSIDE TABLE ARE WITHIN EASY REACH.
[2016-06-27 09:02] VITALS: BP 137/61
--- NOTE | 2016-06-27 10:14 | NUR ---
PT IS SITTING IN A WC IN HER ROOM DOING A UPDRAFT TX. NO DISTRESS NOTED.
--- NOTE | 2016-06-27 13:19 | NUR ---
PT RESTING IN BED WITH EYES OPEN. NO NEEDS VOICED.
--- NOTE | 2016-06-27 15:12 | NUR ---
IN BED.CL IN REACH.FAMILY AT BEDSIDE.
--- NOTE | 2016-06-27 16:47 | NUR ---
CARE TEAM MEETING: PATIENT AND DAUGHTER ATTENDED MEETING. SHE WILL DISCHARGE HOME 06/28/16.[facility] WILL FOLLOW [facility] WILL SEE PATIENT AT HOME. SHE HAS O2 AND A ROLLING WALKER AT HOME. DR. AUSTIN /ALAYNA NOBLE 07/04/16 @ 11:30, DR. ALBERTO 07/24/16 @ 1:15. PATIENT REQUEST HOSPICE REFERRAL TO BE MADE FOR SHE AND HER WHEN SHE IS DISCHARGED. REFERRAL HAS BEEN MADE TO [facility]. PATIENT [facility] FOR HOME HEALTH AND [facility] FORM SIGNED, EXPLAINED AND FILED IN CHART. PATIENT EDUCATED ON DEEP BREATHING EXERCISES, PATIENT VOICED UNDERSTANDING
--- NOTE | 2016-06-27 17:40 | NUR ---
PT IS SITTING IN HER WC IN HER ROOM FEEDING SELF SUPPER. NO SWALLOWING PROBLEMS NOTED.
--- NOTE | 2016-06-27 19:25 | NUR ---
SITTING UP ON BEDSIDE. DENIES NEEDS.
[2016-06-27 19:54] VITALS: BP 129/59
--- NOTE | 2016-06-27 21:35 | NUR ---
ASSESSMENT AND HS MEDS COMPLETE. GAVE PATIENT AMBIEN 5MG PO FOR SLEEP. DENIES NEEDS.
--- NOTE | 2016-06-27 22:20 | NUR ---
RESTING IN BED ON LEFT SIDE, EYES CLOSED.
--- NOTE | 2016-06-28 00:30 | NUR ---
RESTING IN BED ON LEFT SIDE. AUDIBLE RESPIRATIONS ARE UNLABORED.
--- NOTE | 2016-06-28 02:10 | NUR ---
RESTING IN BED, EYES CLOSED. HOB UP 30 DEGREES. NO DISTRESS NOTED.
--- NOTE | 2016-06-28 04:45 | NUR ---
IN BED, EYES CLOSED. SNORING SOFTLY.
--- NOTE | 2016-06-28 05:55 | NUR ---
GAVE PATIENT SCHEDULED PROTONIX. DENIES NEEDS.
--- NOTE | 2016-06-28 07:30 | NUR ---
PT RESTING IN BED WITH EYES OPEN CALL LIGHT IN REACH WILL MONITER
--- NOTE | 2016-06-28 08:00 | NUR ---
SITTING ON SIDE OF BED EATING BREAKFAST.CL IN REACH.
[2016-06-28] MEDS ORDERED: STERAPRED 5MG 125 MG PO (08:30)
[2016-06-28] MEDS ORDERED: NEURONTIN 300300 MG PO (08:31)
[2016-06-28] MEDS ORDERED: LASIX20 MG PO (08:31)
[2016-06-28] MEDS ORDERED: ZITHROMAX250 MG PO (08:33)
[2016-06-28 09:02] VITALS: BP 124/77
--- NOTE | 2016-06-28 14:11 | NUR ---
PT DISCHARGED TO HOME WITH DAUGHTER VIA WHEELCHAIR DISCHARGE MEDS AND DISCHARGE SUMMARY REVIEWED WITH THE PT NO QUESTIONS I ATTEMPTED TO CALL IN PTS MEDS TO [facility] ON [address] THE PHONE LINES WERE DOWN WILL TRY AGAIN
== END 2016-06-28 15:38 | disposition home health service (06) | DRG 189 ==
LOC: D.REHAB 19:27
PROVIDERS: ADMIT Emergency Medicine
DX: J96.22 Acute and chronic respiratory failure with hypercapnia (principal); I50.21 Acute systolic (congestive) heart failure; J11.00 Influenza due to unidentified influenza virus with unspecified type of pneumonia; J96.21 Acute and chronic respiratory failure with hypoxia; J43.9 Emphysema, unspecified; I11.0 Hypertensive heart disease with heart failure; D72.829 Elevated white blood cell count, unspecified; E78.5 Hyperlipidemia, unspecified; Z95.0 Presence of cardiac pacemaker; I48.2 Chronic atrial fibrillation; G47.30 Sleep apnea, unspecified

== ENCOUNTER 2016-11-20 08:31 | Inpatient (IN) | payer MEDICARE ==
[~2016-11-20] VITALS: Ht 160 cm; Wt 77.7 kg
--- NOTE | ~2016-11-20 | HEMODYNAMI ---
PATIENT:RIKKI LUCERO MEDICAL RECORD: [id number] : 37 LOCATION:[facility] D.2133 ADMISSION DATE: 11/20/16 Generatedon:11/21/201611:37 Patient name: RIKKI LUCERO Patient #: [id number] SSN: : Date of study: 11/21/2016 Page: Of Hemodynamic Procedure Report Patient Data Patient Demographics Procedure consent was obtained First Name: RIKKI Gender: Female Last Name: NIC : 1935 [facility] Initial: LETTY Age: 80 year(s) Patient #: [id number] Race: Additional ID: [id number] Contact details [address]: [address] [place] [address] [place] State: [place] City: [place] Zip code: [address] Past Medical History Allergies Allergen Reaction Date Comments Reported Other allergy 03/07/2015 Sulfa, Avelox, Methiolate Other allergy 11/21/2016 Sulfa, levomefolate calcium, moxifloxacin HCL Admission Admission Data Admission Date: 11/20/2016 Admission Time: 10:44 Room #: D.2133 Height (in.): 63 BSA: 1.85 (m2) Height (cm.): 160.02 BMI: 32.02 (kg/m2) Weight (lbs.): 180.78 Weight (kg.): 82 Lab Results Lab Result Date: 11/21/2016 Lab Result Time: 4:52 Biochemistry Name Units Result Min Max BUN mg/dl 21 --(----)-* 7 18 Creatinine mg/dl 0.8 --(-*--)-- 0.6 1.3 CBC Name Units Result Min Max Hematocrit % 33.2 *-(----)-- 42 54 Hemoglobin g/dl 9.6 *-(----)-- 13.5 17.5 Procedure Procedure Types Cath Procedure Diagnostic Procedure LHC LHC w/Coronaries Miscellaneous Procedures Moderate Sedation up to 15 minutes Procedure Description Procedure Date Procedure Date: 11/21/2016 Procedure Start Time: 11:25 Procedure End Time: 11:37 Procedure Staff Name Function Sebastián Moreira MD Performing Physician Luisito Bartholomew RT Scrub Swetha Eugene RT Scrub Yasmine Bah RN Nurse Francesco Modi RT Monitor Procedure Data Cath Procedure Fluoroscopy Diagnostic fluoroscopy Total fluoroscopy Time: 0.9 time: 0.9 min min Diagnostic fluoroscopy Total fluoroscopy dose: 397 dose: 397 mGy mGy Contrast Material Contrast Material Type Amount (ml) Isovue 300 57 Entry Location Entry Primary Successful Side Size Upsize Upsize Entry Closure Succes sful Closure Location (Fr) 1 (Fr) 2 (Fr) Remarks Device Remarks Femoral Right 5 Fr Exoseal artery Estimated blood loss: 5 ml Diagnostic catheters Device Type Used For End Catheter Placement Cordis 5Fr Pigtail Procedure Catheter (MP) Cordis 5Fr JL 4.0 Procedure Catheter (MP) Cordis 5Fr 3DRC Catheter Procedure (MP) Procedure Complications No complications Procedure Medications Medication Administration Route Dosage Oxygen 10 l/min Lidocaine 2% added to field 20 Heparin Flush Bag added to field 2 bags (1000units/500ml NS) 0.9% NaCl I.V. 100 ml/hr Versed I.V. 0.5 mg Fentanyl I.V. 25 mcg Versed I.V. 0.5 mg Fentanyl I.V. 25 mcg Dobutamine I.V. drip 5 mcg/kg/min (500mg/250ml D5W) Hemodynamics Rest BSA: 1.85 (m2) HGB: 9.6 (g/dl) O2 Consumption: Estimated: 159.94 (ml/min) O2 Con sumption indexed: Estimated:86.45 (ml/min/m) Heart Rate: 60 (bpm) Snapshots Pre Cath Intra NCS Post Cath Vital Signs Time Heart Resp SPO2 etCO2 [id number] NIBP (mmHg) Rhythm Pain Sedation Rate (ipm) (%) (mmHg) (mmHg) Status Level (bpm) 11:15:23 69 18 94 0 0 123/66(100) NSR 0 (11) 10(A) , No pain 11:19:41 79 17 94 0 0 119/64(97) NSR 0 (11) 10(A) , No pain 11:23:57 72 22 93 0 0 112/60(93) NSR 0 (11) 10(A) , No pain 11:28:11 73 19 92 0 0 111/64(91) NSR 0 (11) 10(A) , No pain 11:32:23 75 20 94 0 0 126/73(102) NSR 0 (11) 10(A) , No pain 11:36:39 73 27 96 0 0 115/65(94) NSR 0 (11) 10(A) , No pain Medications Time Medication Route Dose Verified Delivered Reason Note s Effectiveness by by 11:18:01 Oxygen oximizer 10 l/min Sebastián Underwood used for mask Harish Bah RN procedure 11:18:07 Lidocaine 2% added to 20ml vial Sebastián Lowery for local field Harish Moreira MD anesthetic 11:18:15 Heparin Flush added to 2 bags Sebastián Lowery used for Bag field Harish Moreira MD procedure (1000units/500ml NS) 11:18:23 0.9% NaCl I.V. 100 ml/hr Sebastián Underwood Per Harish Bah RN physician 11:22:05 Fentanyl I.V. 25 mcg Sebastián Underwood for Harish Bah RN sedation 11:22:58 Versed I.V. 0.5 mg Sebastián Underwood for Harish Bah RN sedation 11:27:59 Versed I.V. 0.5 mg Sebastián Underwood for Harish Bah RN sedation 11:28:03 Fentanyl I.V. 25 mcg Sebastián Underwood for Harish Bah RN sedation 11:34:29 Dobutamine I.V. 5 Sebastián Underwood Per (500mg/250ml drip mcg/kg/min Harish Bah RN physician D5W) Procedure Log Time Note 10:44:07 Informed consent obtained and on chart 10:44:41 Lab Result : Hemoglobin 9.6 g/dl 10:44:41 Lab Result : Hematocrit 33.2 % 10:44:41 Lab Result : BUN 21 mg/dl 10:44:41 Lab Result : Creatinine 0.8 mg/dl 10:45:05 Yasmine Bah RN sent for patient. Start room use. 10:45:06 Time tracking: Regular hours 10:45:10 Plan of Care:Hemodynamics will remain stable., Cardiac rhythm will remain stable., Comfort level will be maintained., Respiratory function will remain adequate., Patient/ family verbilizes understanding of procedure., Procedure tolerated without complication., Recovers from procedure without complications.. 10:45:41 H&P Date Dictated: 11/20/2016 Within 30 days and on chart., H&P Addendum completed by physician on day of procedure. (MUST COMPLETE FOR ALL OUTPATIENTS). 11:06:09 Patient received from PCU to CCL 1 Alert and oriented. Tansferred to table in Supine position. 11:06:10 Warm blankets applied, and fede hugger turned on for patient comfort. 11:06:11 Correct patient and procedure confirmed by team. 11:06:12 ECG and BP/O2 sat monitors applied to patient. 11:06:13 Pre-procedure instructions explained to patient. 11:06:15 Pre-op teaching completed and patient verbalized understanding. 11:06:20 Family in patients room. 11:06:23 Patient NPO since Midnight. 11:14:13 Vital chart was started 11:14:14 Baseline sample Acquired. 11:14:18 Rhythm: sinus rhythm 11:14:20 Full Disclosure recording started 11:18:01 Oxygen 10 l/min oximizer mask was administered by Yasmine Bah RN; used for procedure; 11:18:07 Lidocaine 2% 20ml vial added to field was administered by Sebastián Moreira MD; for local anesthetic; 11:18:15 Heparin Flush Bag (1000units/500ml NS) 2 bags added to field was administered by Sebastián Moreira MD; used for procedure; 11:18:23 0.9% NaCl 100 ml/hr I.V. was administered by Yasmine Bah RN; Per physician; 11:19:05 Baseline sample Acquired. 11:20:02 Patient allergic to Other allergySulfa, levomefolate calcium, moxifloxacin HCL 11:20:04 Is the patient allergic to Iodine/contrast media? No. 11:20:07 Is patient on blood thinner?No 11:20:13 Patient diabetic? No. 11:20:16 Previous problem with sedation/anesthesia? No ? 11:20:33 Snore? No 11:20:38 Sleep apnea? No 11:20:39 Deviated septum? No 11:20:40 Opens mouth fully? Yes 11:20:41 Sticks out tongue? Yes 11:20:46 Airway obstruction? Yes copd 11:20:51 Dentures? Yes in tight 11:20:54 Pre procedure: right dorsailis pedis pulse 2+ Normal; easily identifiable; not easily obliterated 11:20:56 Patient pain scale 0/10 ?. 11:21:01 IV patent on arrival in right hand with 0.9% NaCl at [facility]. 11:21:06 Lab results completed and on chart. 11:21:08 Right groin area was prepped with chlora-prep and draped in sterile fashion 11::27 Alarms reviewed by R. N. 11::27 Sharps counted by scrub and verified by R.N. 11:21:31 Use device set Femoral Dx 11:21:32 Tegaderm 4 x 4 opened to sterile field. 11:21:33 Acist Manifold opened to sterile field. 11:21:33 Acist Hand Control opened to sterile field. 11:21:34 Acist Syringe opened to sterile field. 11:21:35 Bag Decanter opened to sterile field. 11:21:35 Medline Cath Pack opened to sterile field. 11:21:35 Terumo 5Fr [place] Sheath opened to sterile field. 11:21:36 St Ananda 260cm J .035 wire opened to sterile field. 11:21:37 Diagnostic Infinity 5Fr Multipack catheter opened to sterile field. 11:21:48 Physician arrived 11::49 --------ALL STOP TIME OUT------ 11:21:49 Final Timeout: patient, procedure, and site verified with staff and physician. All members of the team are in agreement. 11:21:51 Right groin site verified by team. 11:21:54 Physical assessment completed. ASA score P 3 - A patient with severe systemic disease as per Sebastián Moreira MD. 11:21:56 Sedation plan: IV Moderate Sedation Versed, Fentanyl 11:22:05 Fentanyl 25 mcg I.V. was administered by Yasmine Bah RN; for sedation; 11:22:05 Patient Height : 63 cm 11:22:08 Patient Weight : 180.78 kg 11:22:10 Catheter removed. 11::58 Versed 0.5 mg I.V. was administered by Yasmine Bah RN; for sedation; 11:25:05 Procedure started. 11:25:09 Local anesthetic to right femoral artery with Lidocaine 2% by Sebastián Moreira MD.INITIAL ACCESS ONLY 11:26:02 A 5 Fr sheath was inserted into the Right Femoral artery 11:26:11 Zero performed for pressure channel P1 11::15 Zero performed for pressure channel P1 11::18 Zero performed for pressure channel P1 11::40 A Cordis 5Fr Pigtail Catheter (MP) was advanced over the wire and used for Procedure. 11::56 LV gram done using GONZALEZ 11::58 Injector settings: Ml/sec: 10, Volume: 20, 11::09 EF : 30 % 11::20 A Cordis 5Fr JL 4.0 Catheter (MP) was advanced over the wire and used for Procedure. 11:27:51 LCA angiography performed. 11::59 Versed 0.5 mg I.V. was administered by Yasmine Bah RN; for sedation; 11::03 Fentanyl 25 mcg I.V. was administered by Yasmine Bah RN; for sedation; 11::54 Catheter exchanged over wire. 11::57 A Cordis 5Fr 3DRC Catheter (MP) was advanced over the wire and used for Procedure. 11:29:34 RCA angiography performed. 11:30:09 Catheter removed. 11:30:15 Cordis 5Fr Exoseal opened to sterile field. 11:30:22 Sheath removed intact; hemostasis achieved with Exoseal to the Right Femoral artery. 11:30:24 Procedure ended.(Physican Out) 11:30:53 Fluoroscopy time 00.90 minutes. 11:32:45 Flurop Dose total: 397 11:32:45 Fluoroscopy dose: 397 mGy 11:33:16 Contrast amount:Isovue 300 57ml. 11:33:18 Sharps counted by scrub and verified by R.N. 11:33:23 Insertion/operative site no bleeding no hematoma. 11:33:26 Post-op/insertion site Right Femoral artery dressed using a 4 x 4 and Tegaderm. 11:33:30 Post right femoral artery:stable, soft, clean and dry 11:33:32 Post Procedure Pulses reassessed and unchanged 11:33:36 Post-procedure physical assessment completed. ASA score P 3 - A patient with severe systemic disease as per Sebastián Moreira MD. 11:33:38 Post procedure rhythm: unchanged. 11:33:40 Estimated blood loss: 5 ml 11:33:43 Post procedure instruction explained to patient.Patient verbalizes understanding. 11:33:43 Patient needs reinforcement of post procedure teaching. 11:34:29 Dobutamine (500mg/250ml D5W) 5 mcg/kg/min I.V. drip was administered by Yasmine Bah RN; Per physician; 11:36:47 Procedure type changed to Cath procedure, Diagnostic procedure, LHC, LHC w/Coronaries, Miscellaneous Procedures, Moderate Sedation up to 15 minutes 11:37:01 Procedure and supply charges have been captured, reviewed, submitted and are correct. 11:37:03 Procedure Complication : No complications 11:37:08 Vital chart was stopped 11:37:08 See physician's report for complete and final results. 11:37:10 Report given to PCU. 11:37:18 Patient transfered to PCU with Stretcher. 11:37:19 Procedure ended. 11:37:19 Full Disclosure recording stopped 11:37:23 End room use (Document Last) Device Usage Item Name Manufacture Quantity Catalog Hospital Part Current Minimal Lo t# / Number Charge Number Stock Stock Serial# Code Tegaderm 4 3M 1 [id number] [id number] 5 x 4 Acist Acist 1 54031 933294 807263 896485 5 Manifold [employer] Inc Acist Hand Acist 1 39359 989960 784544 578239 5 Control Medical Systems Inc Acist Acist 1 49728 205579 357230 695268 20 Syringe Medical Systems Inc Bag Microtek 1 2002S 152263 80966 697556 5 Decanter Medical Inc. Medline Cardinal 1 [id number] 139363 04361 401942 5 Cath Pack Health Terumo 5Fr Terumo 1 [id number] 690995 974157 541426 [address] [place] [address] Ananda 1 369857 690600 393553 986783 30 260cm J .035 wire Diagnostic Cardinal 1 [id number] 105637 30546 654443 30 Infinity Health 5Fr Multipack catheter Cordis 5Fr Cardinal 1 153302 5 Pigtail Health Catheter (MP) Cordis 5Fr Cardinal 1 151825 5 JL 4.0 Health Catheter (MP) Cordis 5Fr Cardinal 1 295765 5 3DRC Health Catheter (MP) Cordis 5Fr Cardinal 1 EX500 828142 383664 602397 10 CARGOBR Signature Audit [place] Stage Time Signature Unsigned Intra-Procedure 11/21/2016 Francesco Modi 11:37:37 AM RT(R) Signatures Monitor : Francesco Modi RT Signature : Date : Time : [address] [place] [address]
[~2016-11-20 08:31] MED LIST changes: +LASIX20 MG PO; +NEURONTIN 300300 MG PO
[2016-11-20 09:37] LABS: ALBUMIN 3.6 g/dL (3.4-5.0); ALKALINE PHOSPHATASE 144 U/L (46-116); ALT (SGPT) 37 U/L (10-68); CALC OSMOLALITY 290 mosm/kg (275-300); CALCIUM 8.7 mg/dL (8.5-10.1); CARBON DIOXIDE 32.8 mmol/L (21.0-32.0); CHLORIDE - SERUM 104 mmol/L (98-107); GLUCOSE 130 mg/dL (74-106); POTASSIUM - SERUM 4.2 mmol/L (3.5-5.1); PROTEIN - SERUM 6.5 g/dL (6.4-8.2); SODIUM 142 mmol/L (136-145); UREA NITROGEN 29 mg/dL (7-18); eGFR NON AFRICAN AMERICAN 57 mL/min (90-120)
[2016-11-20 09:39] LABS: HEMATOCRIT 37.9 % (36.0-48.0); HEMOGLOBIN 11.2 g/dL (12-16); MCH 22.4 pg (26.0-34.0); MCHC 29.6 g/dL (31.0-37.0); MCV 75.8 fL (80.0-100.0); MEAN PLATELET VOLUME 10.4 fL (7.4-10.4); PLATELET COUNT 287 10x3/uL (130-400); RDW 19.6 % (11.5-14.5)
[2016-11-20 09:51] LABS: CKMB 0.5 U/L (0.0-3.6); PRO BNP 2663 pg/mL (0-450); TROPONIN-I 0.024 ng/mL (0.000-0.060)
[2016-11-20 11:02] LABS: LYMPHOCYTES 5 % (15-50); MONOCYTES 5 % (2-11); NEUTROPHILS 76 % (40-80); PLATELET ESTIMATE NORMAL
[2016-11-20 13:54] VITALS: BP 115/57; BMI 31.9
[2016-11-20] MEDS ORDERED: LIPITOR10 MG PO (14:14)
[2016-11-20 20:00] VITALS: BP 99/51
[2016-11-21] VITALS: BP 101/52
[2016-11-21 04:00] VITALS: BP 110/52
[2016-11-21 05:16] LABS: BASOPHILS 0 % (0-2); EOSINOPHILS 0 % (0-7); HEMATOCRIT 33.2 % (36.0-48.0); HEMOGLOBIN 9.6 g/dL (12-16); IMMATURE GRANULOCYTES 0.4 % (0-5); LYMPHOCYTES 4.2 % (15-50); MCH 22.1 pg (26.0-34.0); MCHC 28.9 g/dL (31.0-37.0); MCV 76.5 fL (80.0-100.0); MEAN PLATELET VOLUME 10.1 fL (7.4-10.4); MONOCYTES 4.6 % (2-11); NEUTROPHILS 90.8 % (40-80); PLATELET COUNT 253 10x3/uL (130-400); RBC 4.34 10x6/uL (4.00-5.40); RDW 19.7 % (11.5-14.5)
[2016-11-21 05:39] LABS: BILIRUBIN - TOTAL 0.37 mg/dL (0.2-1.3); CALCIUM 7.7 mg/dL (8.5-10.1); CARBON DIOXIDE 34.8 mmol/L (21.0-32.0); CREATININE - SERUM 0.8 mg/dL (0.6-1.3); MAGNESIUM - SERUM 2.2 mg/dL (1.8-2.4); POTASSIUM - SERUM 3.8 mmol/L (3.5-5.1); PROTEIN - SERUM 5.6 g/dL (6.4-8.2)
[2016-11-21 05:46] LABS: ALBUMIN 2.6 g/dL (3.4-5.0)
[2016-11-21 08:00] VITALS: BP 112/56
[2016-11-21 10:02] VITALS: Ht 160 cm; Wt 77.7 kg
[2016-11-21 12:00] VITALS: BP 113/56
[2016-11-21 16:00] VITALS: BP 115/60
[2016-11-21 20:00] VITALS: BP 127/49
[2016-11-22] VITALS: BP 146/59
[2016-11-22 04:00] VITALS: BP 135/64
[2016-11-22 05:40] LABS: BASOPHILS 0.1 % (0-2); EOSINOPHILS 0.2 % (0-7); HEMATOCRIT 32.9 % (36.0-48.0); HEMOGLOBIN 9.6 g/dL (12-16); IMMATURE GRANULOCYTES 0.3 % (0-5); LYMPHOCYTES 8.4 % (15-50); MCH 22.2 pg (26.0-34.0); MCHC 29.2 g/dL (31.0-37.0); MCV 76.2 fL (80.0-100.0); MEAN PLATELET VOLUME 10.1 fL (7.4-10.4); MONOCYTES 5.2 % (2-11); NEUTROPHILS 85.8 % (40-80); PLATELET COUNT 296 10x3/uL (130-400); RBC 4.32 10x6/uL (4.00-5.40); RDW 19.9 % (11.5-14.5)
[2016-11-22 05:54] LABS: ALBUMIN 2.9 g/dL (3.4-5.0); ANION GAP 9.1 mmol/L (8-16); BILIRUBIN - TOTAL 0.4 mg/dL (0.2-1.3); MAGNESIUM - SERUM 2.3 mg/dL (1.8-2.4); POTASSIUM - SERUM 4.1 mmol/L (3.5-5.1); PROTEIN - SERUM 5.9 g/dL (6.4-8.2)
[2016-11-22 05:56] LABS: CREATININE - SERUM 1.1 mg/dL (0.6-1.3)
[2016-11-22 09:31] VITALS: BP 121/39
[2016-11-22 20:00] VITALS: BP 150/74
[2016-11-23] VITALS: BP 125/55
[2016-11-23 04:00] VITALS: BP 120/42
[2016-11-23 05:50] LABS: BASOPHILS 0.2 % (0-2); EOSINOPHILS 1.1 % (0-7); HEMATOCRIT 32.9 % (36.0-48.0); HEMOGLOBIN 9.5 g/dL (12-16); IMMATURE GRANULOCYTES 0.4 % (0-5); MCH 21.8 pg (26.0-34.0); MCHC 28.9 g/dL (31.0-37.0); MCV 75.6 fL (80.0-100.0); MONOCYTES 8.4 % (2-11); NEUTROPHILS 77.9 % (40-80); PLATELET COUNT 289 10x3/uL (130-400); RBC 4.35 10x6/uL (4.00-5.40); RDW 19.6 % (11.5-14.5)
[2016-11-23 05:51] LABS: WBC 8.5 10x3/uL (4.8-10.8)
[2016-11-23 06:16] LABS: ALBUMIN 2.8 g/dL (3.4-5.0); ALKALINE PHOSPHATASE 102 U/L (46-116); ALT (SGPT) 47 U/L (10-68); CALCIUM 8.2 mg/dL (8.5-10.1); CARBON DIOXIDE 32.6 mmol/L (21.0-32.0); CHLORIDE - SERUM 107 mmol/L (98-107); GLUCOSE 86 mg/dL (74-106); MAGNESIUM - SERUM 2.3 mg/dL (1.8-2.4); POTASSIUM - SERUM 4.1 mmol/L (3.5-5.1); PROTEIN - SERUM 5.7 g/dL (6.4-8.2); SODIUM 144 mmol/L (136-145); eGFR NON AFRICAN AMERICAN 85 mL/min (90-120)
[2016-11-23 06:17] LABS: CALC OSMOLALITY 287 mosm/kg (275-300); CREATININE - SERUM 0.7 mg/dL (0.6-1.3); UREA NITROGEN 18 mg/dL (7-18)
[2016-11-23 09:17] VITALS: BP 161/66
[2016-11-23 12:01] VITALS: BP 119/45
--- NOTE | 2016-11-23 13:52 | CN ---
PATIENT NAME:RIKKI RUST MEDICAL RECORD: [id number] : 37 LOCATION:. D.2133 ADMIT DATE: 11/20/16 ACCOUNT: [id number] CONSULTING PHYSICIAN: MIL NEGRETE MD REFERRING PHYSICIAN: CEDRICK POPE M.D. DATE OF CONSULTATION: 11/20/2016 ADMITTING DIAGNOSES: 1. Angina. 2. Coronary artery disease. 3. Previous PTCA stent, last being in 2014. 4. Pneumonia. 5. Congestive heart failure/pulmonary edema. 6. Abnormal ECG, left bundle branch block. 7. Paroxysmal atrial fibrillation. 8. Hypertension. 9. Hyperlipidemia. HISTORY OF PRESENT ILLNESS: Mrs. Rust presents with increasing shortness of breath as well as chest pain. She does have a past history of coronary artery disease, last PTCA stent in 2014. Her chest x-ray is compatible with pneumonia versus congestive heart failure. Either way, there is pulmonary edema. She has a history of atrial fibrillation. She is on Cordarone. She remains in sinus rhythm with that. Last EF in the 25% range, this is not new. Chronic systolic dysfunction has been present for quite some time. The angina is new as of the past week as is the shortness of breath. She as well has had increasing lower extremity edema. PHYSICAL EXAMINATION: GENERAL APPEARANCE: Well-nourished, well-developed, appears stated age. Level of distress, comfortable. PSYCHIATRIC: Mental status, alert, normal affect. Orientation, oriented to time, place and person. EYES: Lids and conjunctiva, noninjected. No discharge, no pallor. ENT: Lips, teeth, gums, normal dentition. Oropharynx, no cyanosis, no pallor. NECK: Carotid arteries, bilateral normal upstroke, no bruits, no thrills. JUGULAR VEINS: No jugular venous pressure or distention. CERVICAL LYMPH NODES: Nontender, nonenlarged. THYROID: Not enlarged. Nontender. No nodules. LUNGS: Bibasilar crackles. CHEST: Normal curvature. No thoracic deformity. No chest wall tenderness. Percussion, resonant. Auscultation, clear. No wheezes, no rales, no rhonchi. CARDIOVASCULAR: Precordial exam, nondisplaced. No heaves or pericardial thrills. Rate and rhythm, regular. Heart sounds, normal S1, normal S2. No S3, no gallop, no rub. Systolic murmur, not heard. Diastolic murmur, not heard. EXTREMITIES: No cyanosis. Lower extremities with +2 edema. Peripheral pulses, full and equal in all extremities, except as noted. No bruits appreciated. ABDOMEN: Soft, nondistended. Normal aorta. No bruit. Nontender. No masses. Liver, nontender, no hepatomegaly. Spleen, nontender, no splenomegaly. MUSCULOSKELETAL: No joint tenderness. No joint swelling. No erythema. NEUROLOGICAL: Normal gait, normal strength, normal tone. SKIN: Warm and dry. OVERALL IMPRESSION: 1. Unstable angina. Most likely, she has recurrent hemodynamically significant CONSULT REPORT [id number] RIKKI RUST coronary artery disease. Her troponin is normal. Her EKG is unchanged. Last cardiac intervention was in 2014. We will improve her breathing status. Plan for coronary angiography. 2. Congestive heart failure. She does have chronic systolic dysfunction, this is not new. We will use IV Lasix to clear the heart failure symptomatology. Proceed with coronary angiography when breathing is more stable. TRANSINT:[id number] Voice Confirmation ID: [id number] DOCUMENT ID: [id number] MIL NEGRETE MD at 1352 CC: [id number] DICTATION DATE: 11/20/16 1136 SYSTEMS COORDINATOR: 11/20/16 1822 ADM IN [place] [id number] [place] [id number]
--- NOTE | 2016-11-23 13:52 | OP ---
PATIENT NAME: RIKKI LUCERO MEDICAL RECORD: [id number] :37 LOCATION:D.M2 D.2133 ADMISSION DATE:11/20/16 SURGEON: MIL NEGRETE MD DATE OF OPERATION: 11/21/2016 PROCEDURES: 1. Left heart catheterization. 2. Selective coronary angiography. 3. Left ventriculogram. INDICATIONS: Angina and coronary artery disease. PROCEDURE IN DETAIL: After informed consent was obtained and after detailed explanation of risks, benefits as well as alternative therapies, the patient elected to proceed with angiogram and heart catheterization. The right femoral area was prepped and draped in normal sterile fashion. The right femoral artery was cannulated via modified Seldinger technique with placement of 5-Bolivian sheath. All catheters exchanged through this sheath. FINDINGS: Left ventriculogram was performed in standard 30-degree GONZALEZ view reveals global hypokinesis throughout all segments. Overall ejection fraction is 30%. SELECTIVE CORONARY ANGIOGRAPHY: 1. Left main showed no significant angiographic disease. 2. Left anterior descending has previously placed stent, this is widely patent. There is no disease elsewise throughout the LAD and its branches. 3. Left circumflex shows mild irregularities, but no flow-limiting stenosis. 4. Right coronary has mild irregularities, but no flow-limiting stenosis. OVERALL IMPRESSION: Cardiomyopathy, ejection fraction 30%, but no new disease, wide patency of the previously placed stent. Center medical management on treatment of cardiomyopathy. TRANSINT:[id number] Voice Confirmation ID: [id number] DOCUMENT ID: [id number] MIL NEGRETE MD at 1352 CC: [id number] DICTATION DATE: 11/21/16 1141 DIRECTOR EDUCATION: 11/21/16 1724 ADM IN [place] [id number] [place] [id number]
[2016-11-23 16:02] VITALS: BP 110/52
[2016-11-23 20:00] VITALS: BP 126/76
[2016-11-24] VITALS: BP 103/45
[2016-11-24 04:00] VITALS: BP 126/52
[2016-11-24 06:17] LABS: BASOPHILS 0.3 % (0-2); HEMATOCRIT 33.7 % (36.0-48.0); HEMOGLOBIN 9.8 g/dL (12-16); IMMATURE GRANULOCYTES 0.5 % (0-5); LYMPHOCYTES 21.3 % (15-50); MCH 22.2 pg (26.0-34.0); MCHC 29.1 g/dL (31.0-37.0); MCV 76.2 fL (80.0-100.0); MEAN PLATELET VOLUME 9.9 fL (7.4-10.4); MONOCYTES 12.4 % (2-11); NEUTROPHILS 63.5 % (40-80); PLATELET COUNT 282 10x3/uL (130-400); RBC 4.42 10x6/uL (4.00-5.40); RDW 19.7 % (11.5-14.5)
[2016-11-24 06:19] LABS: WBC 5.9 10x3/uL (4.8-10.8)
[2016-11-24 06:22] LABS: ALBUMIN 2.6 g/dL (3.4-5.0); ALKALINE PHOSPHATASE 111 U/L (46-116); CALCIUM 8.2 mg/dL (8.5-10.1); CARBON DIOXIDE 33.2 mmol/L (21.0-32.0); CHLORIDE - SERUM 109 mmol/L (98-107); CREATININE - SERUM 0.6 mg/dL (0.6-1.3); GLUCOSE 79 mg/dL (74-106); MAGNESIUM - SERUM 2.4 mg/dL (1.8-2.4); POTASSIUM - SERUM 4.5 mmol/L (3.5-5.1); PROTEIN - SERUM 5.6 g/dL (6.4-8.2); SODIUM 146 mmol/L (136-145); eGFR NON AFRICAN AMERICAN > 90 mL/min (90-120)
[2016-11-24 06:23] LABS: ALT (SGPT) 67 U/L (10-68); CALC OSMOLALITY 288 mosm/kg (275-300); UREA NITROGEN 11 mg/dL (7-18)
[2016-11-24 08:00] VITALS: BP 108/52
[2016-11-24 12:00] VITALS: BP 150/88
[2016-11-24 16:42] VITALS: BP 134/59
[2016-11-24 19:00] VITALS: BP 123/56
[2016-11-25] VITALS: BP 134/88
[2016-11-25 04:00] VITALS: BP 141/99
[2016-11-25 05:23] LABS: BASOPHILS 0.1 % (0-2); EOSINOPHILS 1.9 % (0-7); HEMATOCRIT 34.6 % (36.0-48.0); MCH 22.2 pg (26.0-34.0); MCHC 28.9 g/dL (31.0-37.0); MCV 76.7 fL (80.0-100.0); MEAN PLATELET VOLUME 9.8 fL (7.4-10.4); MONOCYTES 9.9 % (2-11); NEUTROPHILS 72.1 % (40-80); PLATELET COUNT 289 10x3/uL (130-400); RBC 4.51 10x6/uL (4.00-5.40); RDW 19.8 % (11.5-14.5); WBC 7.3 10x3/uL (4.8-10.8)
[2016-11-25 05:55] LABS: ALBUMIN 2.7 g/dL (3.4-5.0); ALKALINE PHOSPHATASE 123 U/L (46-116); ALT (SGPT) 67 U/L (10-68); BILIRUBIN - TOTAL 0.42 mg/dL (0.2-1.3); CALC OSMOLALITY 282 mosm/kg (275-300); CALCIUM 8.2 mg/dL (8.5-10.1); CARBON DIOXIDE 33.4 mmol/L (21.0-32.0); CHLORIDE - SERUM 107 mmol/L (98-107); CREATININE - SERUM 0.7 mg/dL (0.6-1.3); GLUCOSE 88 mg/dL (74-106); MAGNESIUM - SERUM 2.3 mg/dL (1.8-2.4); POTASSIUM - SERUM 4.7 mmol/L (3.5-5.1); PROTEIN - SERUM 5.8 g/dL (6.4-8.2); SODIUM 143 mmol/L (136-145); UREA NITROGEN 10 mg/dL (7-18); eGFR NON AFRICAN AMERICAN 85 mL/min (90-120)
[2016-11-25 08:00] VITALS: BP 105/48
[2016-11-25 12:04] VITALS: BP 105/75
[2016-11-25 16:00] VITALS: BP 130/63
[2016-11-25 20:00] VITALS: BP 128/49
[2016-11-26] VITALS: BP 114/50
[2016-11-26 04:00] VITALS: BP 110/49
[2016-11-26 06:00] LABS: BASOPHILS 0.2 % (0-2); EOSINOPHILS 1.6 % (0-7); HEMATOCRIT 35.2 % (36.0-48.0); HEMOGLOBIN 10.4 g/dL (12-16); IMMATURE GRANULOCYTES 1.4 % (0-5); LYMPHOCYTES 13.4 % (15-50); MCH 22.4 pg (26.0-34.0); MCHC 29.5 g/dL (31.0-37.0); MCV 75.7 fL (80.0-100.0); MEAN PLATELET VOLUME 9.8 fL (7.4-10.4); MONOCYTES 8.3 % (2-11); NEUTROPHILS 75.1 % (40-80); PLATELET COUNT 281 10x3/uL (130-400); RBC 4.65 10x6/uL (4.00-5.40); WBC 8.1 10x3/uL (4.8-10.8)
[2016-11-26 06:17] LABS: CALC OSMOLALITY 288 mosm/kg (275-300); CALCIUM 8.5 mg/dL (8.5-10.1); CARBON DIOXIDE 33.9 mmol/L (21.0-32.0); CHLORIDE - SERUM 107 mmol/L (98-107); CREATININE - SERUM 0.7 mg/dL (0.6-1.3); GLUCOSE 99 mg/dL (74-106); MAGNESIUM - SERUM 2.2 mg/dL (1.8-2.4); PHOSPHOROUS 3.2 mg/dL (2.5-4.9); POTASSIUM - SERUM 4.5 mmol/L (3.5-5.1); SODIUM 145 mmol/L (136-145); UREA NITROGEN 12 mg/dL (7-18); eGFR NON AFRICAN AMERICAN 85 mL/min (90-120)
[2016-11-26 10:34] VITALS: BP 102/47
[2016-11-26 12:00] VITALS: BP 128/49
[2016-11-26 16:34] VITALS: BP 136/68
[2016-11-26 19:00] VITALS: BP 97/55
[2016-11-27] VITALS: BP 116/54
[2016-11-27 04:00] VITALS: BP 150/66
[2016-11-27 05:33] LABS: BASOPHILS 0.1 % (0-2); EOSINOPHILS 0.1 % (0-7); HEMATOCRIT 36.5 % (36.0-48.0); HEMOGLOBIN 10.8 g/dL (12-16); IMMATURE GRANULOCYTES 1.4 % (0-5); LYMPHOCYTES 8.6 % (15-50); MCH 22.2 pg (26.0-34.0); MCHC 29.6 g/dL (31.0-37.0); MCV 75.1 fL (80.0-100.0); MEAN PLATELET VOLUME 10.2 fL (7.4-10.4); MONOCYTES 0.8 % (2-11); PLATELET COUNT 330 10x3/uL (130-400); RBC 4.86 10x6/uL (4.00-5.40); RDW 20.2 % (11.5-14.5); WBC 7.7 10x3/uL (4.8-10.8)
[2016-11-27 05:43] LABS: ANION GAP 10.2 mmol/L (8-16); CALCIUM 8.8 mg/dL (8.5-10.1); CARBON DIOXIDE 32.2 mmol/L (21.0-32.0); CREATININE - SERUM 0.8 mg/dL (0.6-1.3); POTASSIUM - SERUM 4.4 mmol/L (3.5-5.1)
[2016-11-27 08:23] VITALS: BP 110/66
[2016-11-27 12:13] VITALS: BP 110/64
[2016-11-27 16:10] VITALS: BP 118/44
[2016-11-27 19:00] VITALS: BP 113/62
[2016-11-28 04:00] VITALS: BP 115/52
[2016-11-28 05:49] LABS: BASOPHILS 0 % (0-2); EOSINOPHILS 0 % (0-7); HEMATOCRIT 34.4 % (36.0-48.0); HEMOGLOBIN 10.4 g/dL (12-16); IMMATURE GRANULOCYTES 0.9 % (0-5); LYMPHOCYTES 7.1 % (15-50); MCH 22.9 pg (26.0-34.0); MCHC 30.2 g/dL (31.0-37.0); MCV 75.6 fL (80.0-100.0); MEAN PLATELET VOLUME 9.8 fL (7.4-10.4); MONOCYTES 6.5 % (2-11); NEUTROPHILS 85.5 % (40-80); PLATELET COUNT 339 10x3/uL (130-400); RBC 4.55 10x6/uL (4.00-5.40); RDW 20.3 % (11.5-14.5)
[2016-11-28 05:52] LABS: WBC 10.6 10x3/uL (4.8-10.8)
[2016-11-28 06:35] LABS: CALCIUM 8.3 mg/dL (8.5-10.1); CARBON DIOXIDE 33.8 mmol/L (21.0-32.0); CREATININE - SERUM 0.8 mg/dL (0.6-1.3); POTASSIUM - SERUM 4.8 mmol/L (3.5-5.1)
[2016-11-28 07:50] VITALS: BP 124/72
[2016-11-28 11:19] VITALS: BP 113/59
[2016-11-28 15:46] VITALS: BP 126/52
[2016-11-28 19:00] VITALS: BP 122/53
[2016-11-29 04:00] VITALS: BP 124/62
[2016-11-29 05:58] LABS: BASOPHILS 0.1 % (0-2); EOSINOPHILS 0 % (0-7); HEMATOCRIT 36.8 % (36.0-48.0); HEMOGLOBIN 10.7 g/dL (12-16); IMMATURE GRANULOCYTES 0.6 % (0-5); LYMPHOCYTES 7.9 % (15-50); MCH 22.3 pg (26.0-34.0); MCHC 29.1 g/dL (31.0-37.0); MCV 76.8 fL (80.0-100.0); MEAN PLATELET VOLUME 9.9 fL (7.4-10.4); MONOCYTES 4.5 % (2-11); NEUTROPHILS 86.9 % (40-80); PLATELET COUNT 304 10x3/uL (130-400); RBC 4.79 10x6/uL (4.00-5.40); RDW 20.8 % (11.5-14.5); WBC 12.6 10x3/uL (4.8-10.8)
[2016-11-29 06:20] LABS: ANION GAP 12.3 mmol/L (8-16); CALCIUM 8.4 mg/dL (8.5-10.1); CARBON DIOXIDE 32.5 mmol/L (21.0-32.0); CREATININE - SERUM 0.8 mg/dL (0.6-1.3); POTASSIUM - SERUM 4.8 mmol/L (3.5-5.1)
[2016-11-29 07:00] VITALS: BP 117/65
[2016-11-29 12:52] VITALS: BP 138/77
[2016-11-29 16:55] VITALS: BP 135/70
[2016-11-29 19:00] VITALS: BP 114/59
[2016-11-30] VITALS: BP 134/70
[2016-11-30 04:00] VITALS: BP 107/53
[2016-11-30 05:30] LABS: BASOPHILS 0 % (0-2); EOSINOPHILS 0 % (0-7); HEMATOCRIT 35.9 % (36.0-48.0); HEMOGLOBIN 10.7 g/dL (12-16); IMMATURE GRANULOCYTES 0.5 % (0-5); LYMPHOCYTES 9.5 % (15-50); MCH 22.4 pg (26.0-34.0); MCHC 29.8 g/dL (31.0-37.0); MCV 75.3 fL (80.0-100.0); MEAN PLATELET VOLUME 9.8 fL (7.4-10.4); MONOCYTES 6.4 % (2-11); NEUTROPHILS 83.6 % (40-80); PLATELET COUNT 350 10x3/uL (130-400); RBC 4.77 10x6/uL (4.00-5.40); RDW 20.4 % (11.5-14.5); WBC 12.9 10x3/uL (4.8-10.8)
[2016-11-30 05:50] LABS: ANION GAP 6.6 mmol/L (8-16); CALCIUM 8.8 mg/dL (8.5-10.1); CARBON DIOXIDE 34.7 mmol/L (21.0-32.0); CREATININE - SERUM 0.8 mg/dL (0.6-1.3); POTASSIUM - SERUM 4.3 mmol/L (3.5-5.1)
[2016-11-30 09:00] VITALS: BP 143/64
[2016-11-30 13:27] VITALS: BP 105/66
[2016-11-30] MEDS ORDERED: BROVANA15 MCG/2 M INH (13:57)
[2016-11-30] MEDS ORDERED: LASIX20 MG PO (13:58)
[2016-11-30] MEDS ORDERED: PROTONIX40 MG PO (14:00)
[2016-11-30] MEDS ORDERED: SENOKOT-S TABLE1 TAB PO (14:00)
[2016-11-30] MEDS ORDERED: OMNICEF300 MG PO (14:04)
[2016-11-30] MEDS ORDERED: VIBRAMYCIN 100100 MG PO (14:04)
[2016-11-30] MEDS ORDERED: PREDNISONE10 MG PO (14:05)
[2016-11-30 17:24] VITALS: BP 116/85
== END 2016-11-30 18:21 | DRG 286 ==
LOC: D.ER 08:31 → D.M2 10:44
PROVIDERS: Emergency Medicine; Internal Medicine Pulmonary Disease; ADMIT Family Medicine
PROC: B2111ZZ Fluoroscopy of Multiple Coronary Arteries using Low Osmolar Contrast (ICD-10-PCS; 2016-11-21)
PROC: B2151ZZ Fluoroscopy of Left Heart using Low Osmolar Contrast (ICD-10-PCS; 2016-11-21)
PROC: 4A023N7 Measurement of Cardiac Sampling and Pressure, Left Heart, Percutaneous Approach (ICD-10-PCS; 2016-11-21)
PROC: 5A09457 Assistance with Respiratory Ventilation, 24-96 Consecutive Hours, Continuous Positive Airway Pressure (ICD-10-PCS; principal; 2016-11-22)
DX: I25.119 Atherosclerotic heart disease of native coronary artery with unspecified angina pectoris (principal); J15.6 Pneumonia due to other Gram-negative bacteria; J96.22 Acute and chronic respiratory failure with hypercapnia; J96.21 Acute and chronic respiratory failure with hypoxia; I50.23 Acute on chronic systolic (congestive) heart failure; J13 Pneumonia due to Streptococcus pneumoniae; J44.0 Chronic obstructive pulmonary disease with (acute) lower respiratory infection; J44.1 Chronic obstructive pulmonary disease with (acute) exacerbation; J98.11 Atelectasis; Q21.0 Ventricular septal defect; I42.9 Cardiomyopathy, unspecified; G47.33 Obstructive sleep apnea (adult) (pediatric); I11.0 Hypertensive heart disease with heart failure; R94.31 Abnormal electrocardiogram [ECG] [EKG]; I48.0 Paroxysmal atrial fibrillation; E78.5 Hyperlipidemia, unspecified; D50.9 Iron deficiency anemia, unspecified; M81.0 Age-related osteoporosis without current pathological fracture; I27.2 Other secondary pulmonary hypertension; I44.7 Left bundle-branch block, unspecified; J30.9 Allergic rhinitis, unspecified; Z95.0 Presence of cardiac pacemaker; Z95.5 Presence of coronary angioplasty implant and graft

== ENCOUNTER 2016-11-30 18:26 | Inpatient (IN) | payer MEDICARE ==
[~2016-11-30] VITALS: Ht 160 cm; Wt 77.6 kg
[~2016-11-30 18:26] MED LIST changes: +LIPITOR10 MG PO; +PROTONIX40 MG PO; +SENOKOT-S TABLE1 TAB PO; +VIBRAMYCIN 100100 MG PO
--- NOTE | 2016-11-30 19:28 | NUR ---
RECIEVED UP IN BED WITH TV ON. ALERT AND ORIENTED X4. PLEASANT AND COOPERATIVE. DENIES ANY PAIN AT THIS TIME. CALL LIGHT AND OVERBED TABLE IN REACH.
--- NOTE | 2016-11-30 22:15 | NUR ---
RESTING IN BED WITH EYES OPEN. DENIES ANY PAIN. USES WALKER WITH STAND BY ASSIST TO TOILET. CALL LIGHT AND WATER IN REACH.
[2016-12-01 01:24] VITALS: BP 108/85; BMI 30.3
--- NOTE | 2016-12-01 04:23 | NUR ---
RESTING IN BED WITH EYES CLOSED. NO S/S OF DISTRESS OBSERVED. SIDE RAILS UP X2 TO ENABLE PT TO SIT UP ON SIDE OF BED. CALL LIGHT AND WATER IN REACH.
--- NOTE | 2016-12-01 04:32 | NUR ---
RESTING IN BED WITH EYES CLOSED. NO S/S OF DISTRESS OBSERVED. [facility] OVER[facility] IN REACH.
--- NOTE | 2016-12-01 07:10 | NUR ---
RESTING QUIETLY IN BED. NO S/S DISTRESS. CALL LIGHT IN REACH
[2016-12-01 07:15] LABS: BASOPHILS 0.1 % (0-2); EOSINOPHILS 0 % (0-7); HEMATOCRIT 37.6 % (36.0-48.0); HEMOGLOBIN 11.1 g/dL (12-16); LYMPHOCYTES 14.6 % (15-50); MCH 22.4 pg (26.0-34.0); MCHC 29.5 g/dL (31.0-37.0); MCV 75.8 fL (80.0-100.0); MEAN PLATELET VOLUME 9.7 fL (7.4-10.4); MONOCYTES 7.7 % (2-11); NEUTROPHILS 76.6 % (40-80); PLATELET COUNT 332 10x3/uL (130-400); RBC 4.96 10x6/uL (4.00-5.40); RDW 20.6 % (11.5-14.5)
[2016-12-01 07:22] LABS: ANION GAP 7.2 mmol/L (8-16); CALCIUM 8.1 mg/dL (8.5-10.1); CARBON DIOXIDE 37.6 mmol/L (21.0-32.0); POTASSIUM - SERUM 3.8 mmol/L (3.5-5.1)
[2016-12-01 13:59] VITALS: BP 104/62
[2016-12-01 14:01] VITALS: Ht 160 cm; Wt 77.6 kg
--- NOTE | 2016-12-01 19:02 | NUR ---
RECIEVED SITTING ON SIDE OF BED. PLEASANT AND TALKATIVE. O2@4 LITERS PERN/C IN PLACE. DENIES ANY PAIN. CALL LIGHT IN REACH.
[2016-12-01 19:38] VITALS: BP 112/62
--- NOTE | 2016-12-01 21:18 | NUR ---
LAYING IN BED WITH EYES OPEN AND TV ON. DENIES ANY PAIN AT THIS TIME. STATED SHE HAD LARGE BOWEL MOVEMENT TONIGHT. CALL LIGHT AND OVERBED TABLE IN REACH.
--- NOTE | 2016-12-02 01:08 | NUR ---
RESTING IN BED WITH EYES CLOSED. HOB ELEVATED AND O2@[address] REAP[address] EVEN AND UNLABORED.CALL LIGHT AND OVERBED TABLE IN REACH.
[2016-12-02 07:36] VITALS: BP 112/52
--- NOTE | 2016-12-02 13:00 | NUR ---
PT SITTING ON SIDE OF BED WATCHING TV. NO C/O VOICED. WILL MONITOR.
--- NOTE | 2016-12-02 18:12 | NUR ---
PT RESTING ,DENIES NEEDS. WCTM.
--- NOTE | 2016-12-02 20:05 | NUR ---
REST IN BED AND WATCH TV.
[2016-12-03 00:25] VITALS: BP 111/54
--- NOTE | 2016-12-03 01:07 | NUR ---
REST IN BED WITH EYE CLOSE, CALL LIGHT IN REACH.
--- NOTE | 2016-12-03 03:31 | NUR ---
LYING IN LEFT SIDE, EYE CLOSE, CALL LIGHT IN REACH.
[2016-12-03 07:08] LABS: BASOPHILS 0.1 % (0-2); EOSINOPHILS 0 % (0-7); HEMATOCRIT 35.8 % (36.0-48.0); HEMOGLOBIN 10.6 g/dL (12-16); IMMATURE GRANULOCYTES 0.7 % (0-5); LYMPHOCYTES 15.2 % (15-50); MCH 22.5 pg (26.0-34.0); MCHC 29.6 g/dL (31.0-37.0); MEAN PLATELET VOLUME 10.2 fL (7.4-10.4); MONOCYTES 6.1 % (2-11); NEUTROPHILS 77.9 % (40-80); PLATELET COUNT 339 10x3/uL (130-400); RBC 4.71 10x6/uL (4.00-5.40); RDW 20.3 % (11.5-14.5); WBC 12.2 10x3/uL (4.8-10.8)
[2016-12-03 07:16] LABS: ANION GAP 7.1 mmol/L (8-16); CALCIUM 8.8 mg/dL (8.5-10.1); CARBON DIOXIDE 38.3 mmol/L (21.0-32.0); CREATININE - SERUM 0.9 mg/dL (0.6-1.3); POTASSIUM - SERUM 4.4 mmol/L (3.5-5.1)
[2016-12-03 08:00] VITALS: BP 130/58
--- NOTE | 2016-12-03 08:05 | NUR ---
PT RESTING WITH EYES OPEN CALL LIGHT IN REACH NO PROBLEMS WILL MONITER
--- NOTE | 2016-12-03 10:41 | NUR ---
PATIENT ADMITTED TO REHAB FROM ACUTE FLOOR. DR. AUSTIN IS PATIENT PCP. DME AT HOME: O2 AND A WALKER FROM WHICH SHE RECIEVED FROM [facility] PATIENT. HER DAUGHTER ADITYA VASQUEZ WILL ASSIST HER AT DISCHRGE [phone]. SHE HAS USED [employer] IN THE PAST. WILL CONTINUE TO FOLLOW WITH PATIENT
[2016-12-03 21:45] VITALS: BP 149/76
--- NOTE | 2016-12-03 23:03 | NUR ---
PT. IN BED WITH HOB UP FOR COMFORT WITH EYES CLOSED AND RESP. EVEN. O2 ON AT 4L/MIN VIA N/C WITHOUT ANY S/S DISTRESS OBSERVED. CALL LIGHT WITHIN REACH.
--- NOTE | 2016-12-04 03:00 | NUR ---
PT. IN BED LYING ON HER LEFT SIDE. EYES CLOSED AND RESP. EVEN. CALL LIGHT WITHIN REACH. O2 ON AT 4L/MIN WITHOUT ANY S/S DISTRESS OBSERVED.
--- NOTE | 2016-12-04 08:27 | NUR ---
PT UP IN WHEELCHAIR EATING BREAKFAST CALL LIGHT IN REACH TOLERATING WELL WILL MONITER
[2016-12-04 08:33] VITALS: BP 120/59
--- NOTE | 2016-12-04 19:00 | NUR ---
RECIEVED UP IN BED WITH DAUGHTER AT BEDSIDE. DENIES ANY PAIN. PLEASANT AND TALKATIVE. CALL LIGHT IN REACH.
[2016-12-04 19:48] VITALS: BP 123/84
[2016-12-04 20:04] VITALS: BP 123/64
--- NOTE | 2016-12-04 21:32 | NUR ---
UP IN BED WITH EYES OPEN AND TALKING TO ROOMMATE. PLEASANT AND COOPERATIVE. CALL LIGHT IN REACH.
--- NOTE | 2016-12-05 06:39 | NUR ---
AWAKE AND ALERT WATCHING TV THIS MORNING. DENIES ANY PAIN. PLEASANT AND COOPERATIVE. CALL LIGHT IN REACH.
--- NOTE | 2016-12-05 08:00 | NUR ---
AWAKE, SITTING UP ON SIDE OF BED EATING BREAKFAST.
[2016-12-05 08:54] VITALS: BP 112/65
--- NOTE | 2016-12-05 12:15 | NUR ---
IN W/C SITTING IN ROOM VISITING WITH FAMILY. DENIES NEEDS OR C/O. OXYGEN DEPENDANT.
--- NOTE | 2016-12-05 16:00 | NUR ---
RESTING QUIETLY IN BED, LAYING ON SIDE. JUST HAD RESPIRATORY TX AND DENIES SOB AT REST.
--- NOTE | 2016-12-05 19:00 | NUR ---
RECIEVED UP ON THE SIDE OF THE BED. O2@ 4LITERS IN PLACE. PLEASANT AND COOPERATIVE, DENIES ANY PAIN. CALL LIGHT IN REACH.
[2016-12-05 19:23] VITALS: BP 123/57
--- NOTE | 2016-12-05 21:13 | NUR ---
UP IN BED WATCHING TV. NO S/S OF DISTRESS OBSERVED. O2@ 4LITERS PER N/C INPLACE. DENIES ANY PAIN. WILL CONTINUE PLAN OF ELECTRICIAN SOUND
--- NOTE | 2016-12-06 00:07 | NUR ---
RESTING IN BED WITH EYES CLOSED. NO S/S OFDISTRESS OBSERVED. CALL LIGHT AND OVERBED TABLE IN REACH.
--- NOTE | 2016-12-06 04:17 | NUR ---
RESTING IN BED WITH EYES CLOSED. NO S/S OF DISTRESS OBSERVED. O2@ 4LITERS PER N/C IN PLACE. RESP. EVEN AND UNLABORED. HOB ELEVATED TO 30 DEGREES. CALL LIGHT AND OVERBED TABLE IN REACH.
--- NOTE | 2016-12-06 11:03 | NUR ---
RD note-Chart Reviewed PT reports good appetite, no complaints. Says she has to take her milk of mag every day or she will not have a BM. Pt remains on AHA diet, usually consuming 75-100%, Meds: Milk a mag, spironolactone, KCL, lasix. No new weights since 12/01-171. NO changes at this time. Continue current diet and plan of care. RD to follow.
--- NOTE | 2016-12-06 12:19 | NUR ---
EATING LUNCH. DENIES NEEDS OR C/O.
--- NOTE | 2016-12-06 17:54 | NUR ---
SITTING ON SIDE OF BED EATING SUPPER. USES WALKER FOR AMBULATION ASST.
--- NOTE | 2016-12-06 19:00 | NUR ---
RECIEVED UP IN BED WITH DAUGHTER AT BEDSIDE. PLEASANT AND TALKATIVE. O2@[address] DENIES ANY PAIN.
--- NOTE | 2016-12-06 21:16 | NUR ---
UP IN BED WITH EYES OPEN AND TV ON. PLEASANT AND COOPERATIVE. MILK GIVEN PER REQUEST. DENIES ANY PAIN. O2 @ 4 LITERS PER N/C IN PLACE RESP. EVEN AND UNLABORED. CALL LIGHT AND OVERBED TABLE IN REACH.
[2016-12-07 00:42] VITALS: BP 126/67
--- NOTE | 2016-12-07 02:25 | NUR ---
RESTING IN BED WITH EYES CLOSED. NO S/S OF DISTRESS OBSERVED. O2@ 4 LITERS PER N/C IN PLACE. RESP. EVEN AND UNLABORED. CALL LIGHT AND OVERBED TABLE IN REACH.
[2016-12-07 04:57] LABS: BASOPHILS 0.1 % (0-2); EOSINOPHILS 0.1 % (0-7); HEMATOCRIT 34.8 % (36.0-48.0); HEMOGLOBIN 10.3 g/dL (12-16); IMMATURE GRANULOCYTES 0.9 % (0-5); LYMPHOCYTES 15.5 % (15-50); MCH 22.5 pg (26.0-34.0); MCHC 29.6 g/dL (31.0-37.0); MEAN PLATELET VOLUME 9.9 fL (7.4-10.4); MONOCYTES 8.2 % (2-11); NEUTROPHILS 75.2 % (40-80); PLATELET COUNT 314 10x3/uL (130-400); RBC 4.58 10x6/uL (4.00-5.40); RDW 20.6 % (11.5-14.5); WBC 9.7 10x3/uL (4.8-10.8)
[2016-12-07 05:09] LABS: ANION GAP 4.3 mmol/L (8-16); CALCIUM 8.2 mg/dL (8.5-10.1); CARBON DIOXIDE 37.9 mmol/L (21.0-32.0); POTASSIUM - SERUM 4.2 mmol/L (3.5-5.1)
--- NOTE | 2016-12-07 08:00 | NUR ---
PATIENT SITTING UP IN A WHEELCHAIR TO EAT LUNCH. VOICES NO NEEDS. ALERT/ORIENT X4. PATIENT HAS SIGNED BED/CHAIR ALARM WAVIOR. CALL LIGHT WITHIN REACH
[2016-12-07 09:04] VITALS: BP 118/98
--- NOTE | 2016-12-07 09:05 | RHP ---
PATIENT: RIKKI LUCERO MEDICAL RECORD: [id number] ACCOUNT: [id number] LOCATION:[id number] : 36 ADMISSION DATE: 11/30/16 REHABILITATION HISTORY AND PHYSICAL EXAMINATION POST ADMISSION PHYSICIAN EXAMINATION Post-Admission Physical Examination and History and Physical DATE OF ADMISSION: 11/30/2016 ADMITTING DIAGNOSIS: Vbbbd-by-mtiyefi hypoxic respiratory failure. HISTORY OF PRESENT ILLNESS: The patient was admitted to inpatient rehab for pulmonary and eghqd-hk-yeyvsxn hypoxic and hypercapnic respiratory failure. She is a 80-year-old female patient who has got severe COPD, on home O2, obstructive sleep apnea, hypertension, CHF, coronary artery disease with stents, who presented with worsening dyspnea, hemoptysis, chest pain, and was admitted for pneumonia. Chest x-ray was compatible with pneumonia versus congestive heart failure, noted pulmonary edema. She has a history of atrial fibrillation. Echo showed an EF of 20%-25% and a positive VSD with a vsms-ym-fapbi shunt, moderate mitral regurg, tricuspid regurg. Chest x-ray showed a lingular pneumonia with increased interstitial markings. She has got chronic systolic dysfunction that has been present for quite some time. She is even having some increase in angina. She also had increasing lower extremity edema. She had heart cath on November 21 with an EF of 30% and cardiomyopathy. She required increased oxygen requirements, but has tapered down to 4.5 liters on nasal cannula. She lives alone and was independent with her ADLs and mobility. She is currently setup from fenyqueq-xh-gbt assist for ADLs and moderate assist for her mobility with use of a rolling walker. She would like to return home and get back to her prior level of functioning better. COMORBIDITIES: Include mild bibasilar atelectasis, cardiomegaly, coronary artery disease, severe COPD, chronic right lower lobe atelectasis, hemoptysis, iron deficiency anemia, osteoporosis, debility, unstable angina, coronary artery disease, pulmonary edema, chronic systolic dysfunction, leukocytosis, pneumonia, hypoxia, elevated BNP, atherosclerosis, hypertension, pulmonary fibrosis, hyperlipidemia, hypertension, chronic AFib and history of heart stent. PAST MEDICAL HISTORY: Significant for neuropathy, hypertension, CHF, COPD, pneumonia, home O2 dependent, sleep apnea, depression, anxiety, tobacco use. PAST SURGICAL HISTORY: Includes appendectomy, hysterectomy, heart stents, varicose vein removal, wrist surgery, shoulder surgery. ALLERGIES: AVELOX, SULFA AND DEPLIN. CURRENT MEDICATIONS: Include Lucero khan. She is on spironolactone 25 mg daily; prednisone 30 mg daily, she is on a taper; Protonix 40 mg daily, isosorbide 30 mg daily, aspirin chewable 81 mg daily, amiodarone 200 mg daily. She is on an electrolyte protocol at this time. She is on zolpidem 5 mg q.h.s., Sinemet 1 tab b.i.d., potassium 10 mEq b.i.d., polyethylene glycol 17 grams in 8 ounce of water daily, Singulair 10 mg daily, Mag-Ox 400 mg b.i.d., lorazepam 0.5 mg b.i.d., Neurontin 300 mg q.h.s., furosemide 40 mg b.i.d., Vibramycin 100 mg b.i.d., Omnicef 300 mg b.i.d., carvedilol 3.125 mg at bedtime, Pulmicort 0.5 mg b.i.d., Lipitor 10 mg q.h.s., Brovana 15 mcg b.i.d. HISTORY AND PHYSICAL [id number] RIKKI LUCERO HABITS: No current alcohol or tobacco use. FAMILY HISTORY: Noncontributory. SOCIAL HISTORY: The patient hopes to return back home and get back to her prior level of functioning. REVIEW OF SYSTEMS: GENERAL: Does complain of weakness and fatigue. HEENT: Denies cold, cough, or congestion at this time. CARDIOVASCULAR: Denies any chest pain. LUNGS: Does complain of shortness of breath. PHYSICAL EXAMINATION: VITAL SIGNS: Stable, afebrile. GENERAL: Elderly female in no acute distress, alert upon exam. HEENT: Normocephalic and atraumatic. Mucosa moist. NECK: Supple. No lymphadenopathy. LUNGS: Coarse breath sounds bilaterally with decreased breath sounds in the bases. CARDIOVASCULAR: Regular rate and rhythm. ABDOMEN: Benign. EXTREMITIES: No clubbing, cyanosis or edema. NEUROLOGIC: Seems intact. LABORATORY DATA: Her white count 11.0, H&H of 11 and 37, and platelet count was noted to be 332. Sodium 144, potassium 3.8, BUN and creatinine of 21 and 1.0 and blood sugar was noted to be 85. ASSESSMENT: This is a 80-year-old female patient admitted to rehab with a working diagnosis of umnus-et-lmzxopz hypercapnic respiratory failure. The patient has potential to make improvement. We instituted the following multidisciplinary therapies including, but not limited to physical, occupational, respiratory, speech, nutritional services, prosthetics and orthotics. Given her complex condition and risk for more complications, rehabilitation services cannot be provided at a lower level of care such as a snf facility. PLAN: 1. Admit to [facility] rehab for intensive inpatient therapy to include the following disciplines: A. Physical therapy to improve gait, all transfer skills and bed mobility to a modified independent level. B. Occupational therapy to improve activities of daily living to a modified independent level. C. Case management to assist with discharge planning and placement options. D. Nutrition to assist with nutritional needs. E. Rehabilitation nursing to assist in monitoring the patient's underlying medical conditions and to assist with any type of bowel or bladder management. 2. The patient's current medication and medical care will be continued. 3. The patient will be placed on standard fall precautions. 4. The patient's estimated length of stay is approximately 7-10 days. 5. Discuss this patient during care team staff meeting this week. HISTORY AND PHYSICAL [id number] RIKKI LUCERO TRANSINT:[id number] Voice Confirmation ID: [id number] DOCUMENT ID: [id number] MONICA notes whether there has been none or any medical/functional change since admission: - No change since prescreen. MONICA attests patient continues to be appropriate for IRF: - Continues to be appropriate. AMANDA CORRIGAN MD at 0905 CC: [id number] DICTATION DATE: 12/01/16 1051 SUPERVISOR BYPRODUCTS: 12/01/16 1659 ADM IN [facility] [address] [place] [address]
--- NOTE | 2016-12-07 11:20 | NUR ---
SPEECH THERAPIST, SANJAY, HERE TO WORK WITH PATIENT. NEW ORDERS RECEIVED FROM DR CORRIGAN FOR XR BARRIUM SWALLOW.
--- NOTE | 2016-12-07 14:13 | NUR ---
PATIENT DISCHARGING HOME WITH FAMILY IN AM . [facility] WILL FOLLOW WITH PATIENT AT HOME. NO NEW DME NEEDED AT THIS TIME. DR. AUSTIN 12/12/16 @ 12:00, DR. ALBERTO 01/24/17 @ 1:45, DR. NEGRETE 12/19/16 @ 2:00. PATIENT CHOICE FORM FOR HOME HEALTH AND [facility] FORM SIGNED, EXPLIANED AND FILED IN CHART. WILL CONTINUE TO FOLLOW WITH PATIENT
--- NOTE | 2016-12-07 17:55 | NUR ---
PATIENT TO BE DISCHARGED TO HOME TOMORROW. SITTING UP AT THE SIDE OF THE BED TO EAT SUPPER. VOICES NO NEEDS AT THIS TIME.
--- NOTE | 2016-12-07 19:15 | NUR ---
DAUGHTER TALKS TO PT AT BEDSIDE. AND PT STATE SHE IS SO EXCITED FOR DISCHARGING HOME TOMORROW.
[2016-12-08 00:51] VITALS: BP 125/63
--- NOTE | 2016-12-08 02:50 | NUR ---
IN BED, RESTING ON LEFT SIDE. NO DISTRESS NOTED.
--- NOTE | 2016-12-08 03:12 | NUR ---
REST IN BED, EYE CLOSE, CALL LIGHT IN REACH.
--- NOTE | 2016-12-08 07:49 | NUR ---
SITTING UP IN BED READING PAPER. SCHEDULED TO D/C HOME TODAY. DENIES NEEDS. OXYGEN 4LNC IN USE.
--- NOTE | 2016-12-08 13:00 | NUR ---
D/C HOME WITH ALL PERSONAL BELONGINGS. X2 DTRS IN ROOM TO HELP PT PACK. WENT OVER D/C INSTRUCTIONS WITH PT, SHE DENIES ADDITIONAL QUESTIONS. CALL MEDS INTO [facility] ON [address]. PT LEFT FLOOR IN W/C. SHE HAD PERSONAL PORTABLE OXYGEN.
[2016-12-08 14:00] VITALS: BP 97/43
--- NOTE | 2016-12-08 17:32 | NUR ---
EATING SUPPER IN ROOM. DENIES NEEDS. CALL LIGHT IN REACH
== END 2016-12-08 13:00 | disposition home health service (06) | DRG 189 ==
LOC: D.REHAB 18:26
PROVIDERS: ADMIT Emergency Medicine
DX: J96.22 Acute and chronic respiratory failure with hypercapnia (principal); J18.9 Pneumonia, unspecified organism; I50.23 Acute on chronic systolic (congestive) heart failure; J98.11 Atelectasis; R04.2 Hemoptysis; I25.110 Atherosclerotic heart disease of native coronary artery with unstable angina pectoris; J81.1 Chronic pulmonary edema; J96.21 Acute and chronic respiratory failure with hypoxia; J44.9 Chronic obstructive pulmonary disease, unspecified; G47.33 Obstructive sleep apnea (adult) (pediatric); I11.0 Hypertensive heart disease with heart failure; D50.9 Iron deficiency anemia, unspecified; R53.81 Other malaise; E78.5 Hyperlipidemia, unspecified; I48.2 Chronic atrial fibrillation; J84.10 Pulmonary fibrosis, unspecified

== ENCOUNTER 2016-12-29 16:13 | Inpatient (IN) | payer MEDICARE ==
[2016-12-29 17:11] VITALS: BP 147/76; BMI 31.0
[2016-12-29 18:11] LABS: ANION GAP 7.5 mmol/L (8-16); CALCIUM 8.2 mg/dL (8.5-10.1); CARBON DIOXIDE 32.5 mmol/L (21.0-32.0); CREATININE - SERUM 0.9 mg/dL (0.6-1.3)
--- NOTE | 2016-12-29 18:47 | NUR ---
PT HAS BEEN STUCK 3 TIMES. NO IV ACCESS. WILL CONTINUE TO MONITOR
[2016-12-29 20:00] VITALS: BP 115/69
[2016-12-30] VITALS: BP 123/72
[2016-12-30 04:00] VITALS: BP 102/61
--- NOTE | 2016-12-30 07:29 | NUR ---
AM ROUNDS - PT IN BED AND APPEARS TO BE SLEEPING WITH EQUAL AND NON LABORED BREATHING. YELLOW BAND ON. IV TO LEFT HAND, NS AT 100CC/HR. O2 AT 4L VIA NC. BED AT LOWEST POSITION. CALL URENA IN USE/REACH. SIDE RAILS UP X2. WILL CONTINUE TO MONITOR
[2016-12-30 07:58] VITALS: BP 104/69
[2016-12-30 11:14] VITALS: BP 107/53
--- NOTE | 2016-12-30 15:03 | NUR ---
PT IN BED AND AWAKE AT THIS TIME. NEW ORDER TO HEP LOCK IV, COMLPETE. BED AT LOWEST POSITION. CALL URENA IN USE/REACH. SIDE RAILS UP X2. NO NEEDS AT THIS TIME. WILL CONTINUE TO MONITOR
[2016-12-30 15:26] LABS: BASOPHILS 0.1 % (0-2); EOSINOPHILS 0.6 % (0-7); HEMATOCRIT 30.3 % (36.0-48.0); IMMATURE GRANULOCYTES 0.6 % (0-5); LYMPHOCYTES 14.1 % (15-50); MCH 22.4 pg (26.0-34.0); MCHC 29.7 g/dL (31.0-37.0); MCV 75.4 fL (80.0-100.0); MEAN PLATELET VOLUME 10.6 fL (7.4-10.4); MONOCYTES 8.1 % (2-11); NEUTROPHILS 76.5 % (40-80); PLATELET COUNT 128 10x3/uL (130-400); RBC 4.02 10x6/uL (4.00-5.40); RDW 20.8 % (11.5-14.5); WBC 7.9 10x3/uL (4.8-10.8)
[2016-12-30 16:18] VITALS: BP 122/50
--- NOTE | 2016-12-30 19:25 | NUR ---
RECIEVED SHIFT REPORT. PT IS LYING IN BED. ALERT AND ORIENTED AND ABLE TO VERBALIZE NEEDS. IV IS PATENT AND SALINE LOC AT THIS TIME. O2 @ 4 PER NASAL CANNULA. SCD'S ON. PT DENIES ANY PAIN AT THIS TIME. PT IS AMBULATORY BUT WAS INSTRUCTED TO CALL FOR ANY ASSISTANCE NEEDED. NO NEEDS ARE VERBALIZED AT THIS TIME. WILL CONTINUE TO MONITOR. SIDE RAILS ARE UP X 2. BED IS IN LOWEST POSITION. CALL LIGHT IS WITHIN REACH.
--- NOTE | 2016-12-30 19:57 | NUR ---
SHIFT ASSESSMENT COMPLETED. NIGHT MEDS GIVEN WITH NO PROBLEMS. NO NEEDS ARE VOICED. WILL MONITOR. SIDE RAILS X 2. BED LOW. CALL LIGHT IN REACH.
[2016-12-30 20:00] VITALS: BP 115/61
[2016-12-31] VITALS: BP 101/75
[2016-12-31 04:00] VITALS: BP 127/64
[2016-12-31 05:26] LABS: BASOPHILS 0 % (0-2); EOSINOPHILS 0 % (0-7); HEMATOCRIT 35.1 % (36.0-48.0); HEMOGLOBIN 10.1 g/dL (12-16); IMMATURE GRANULOCYTES 0.4 % (0-5); LYMPHOCYTES 7.6 % (15-50); MCH 22.1 pg (26.0-34.0); MCHC 28.8 g/dL (31.0-37.0); MCV 76.6 fL (80.0-100.0); MONOCYTES 0.9 % (2-11); NEUTROPHILS 91.1 % (40-80); RBC 4.58 10x6/uL (4.00-5.40); RDW 20.9 % (11.5-14.5); WBC 6.9 10x3/uL (4.8-10.8)
[2016-12-31 05:28] LABS: PLATELET COUNT 163 10x3/uL (130-400)
[2016-12-31 05:37] LABS: ANION GAP 8.5 mmol/L (8-16); CALCIUM 8.3 mg/dL (8.5-10.1); CARBON DIOXIDE 32.7 mmol/L (21.0-32.0); CREATININE - SERUM 0.8 mg/dL (0.6-1.3); POTASSIUM - SERUM 4.2 mmol/L (3.5-5.1)
--- NOTE | 2016-12-31 07:13 | NUR ---
AM ROUNDS- PT IN BED, RECEIVING A UPDRAFT, RESP EVEN AND UNLABORED, LT HAND IV SL. PT DENIES ANY NEEDS AT THIS TIME. BED LOW AND WHEELS LOCKED, BEDSIDE RAILS X2, CALL LIGHT IN REACH, NAD NOTED, WILL CONTINUE TO MONITOR.
[2016-12-31 08:00] VITALS: BP 151/46
--- NOTE | 2016-12-31 08:31 | NUR ---
AM MEDS GIVEN, PT IN BED WATCHING, DENIES ANY NEEDS AT THIS TIME. CALL LIGHT IN REACH, NAD NOTED, WILL CONTINUE TO MONITOR.
[2016-12-31 12:00] VITALS: BP 105/52
--- NOTE | 2016-12-31 12:16 | NUR ---
PT IN BED, DENIES ANY NEEDS AT THIS TIME, FAMILY AT BEDSIDE, CALL LIGHT IN REACH, NAD NOTED, WILL CONTINUE TO MONITOR.
[2016-12-31 16:00] VITALS: BP 108/56
[2016-12-31 19:00] VITALS: BP 116/62
--- NOTE | 2016-12-31 19:39 | NUR ---
ALERT/AWAKE RETURNING TO BED FROM BATHROOM, AMBULATING WITH STEADY GAIT. ROOM FULL OF VISITORS. FLUSHED IV AND STARTED ROCEPHIN. ON 4L/NC, RR SHALLOW EVEN U/L. TELEMETRY SHOWS 69 SR. REFUSES SCD'S ON. ORIENTED TO CALL LIGHT FOR ANY NEEDS.
[2017-01-01] VITALS: BP 113/57
--- NOTE | 2017-01-01 00:30 | NUR ---
C/O LEFT HAND IV "HURTING". REMOVED AND RESITED IN LEFT THUMB 22G.
--- NOTE | 2017-01-01 04:00 | NUR ---
AMBULATED TO BATHROOM. REQUESTED CUP OF ICE WATER.
[2017-01-01 04:10] VITALS: BP 118/63
[2017-01-01 04:41] LABS: BASOPHILS 0 % (0-2); EOSINOPHILS 0 % (0-7); HEMATOCRIT 33.9 % (36.0-48.0); HEMOGLOBIN 9.9 g/dL (12-16); IMMATURE GRANULOCYTES 0.3 % (0-5); LYMPHOCYTES 7.2 % (15-50); MCH 22.3 pg (26.0-34.0); MCHC 29.2 g/dL (31.0-37.0); MCV 76.4 fL (80.0-100.0); MEAN PLATELET VOLUME 9.8 fL (7.4-10.4); MONOCYTES 4.9 % (2-11); NEUTROPHILS 87.6 % (40-80); RBC 4.44 10x6/uL (4.00-5.40)
[2017-01-01 04:50] LABS: PLATELET COUNT 198 10x3/uL (130-400); WBC 13.5 10x3/uL (4.8-10.8)
[2017-01-01 05:16] LABS: ANION GAP 9.5 mmol/L (8-16); CARBON DIOXIDE 32.6 mmol/L (21.0-32.0); CREATININE - SERUM 0.9 mg/dL (0.6-1.3); POTASSIUM - SERUM 4.1 mmol/L (3.5-5.1)
--- NOTE | 2017-01-01 07:25 | NUR ---
ASSESSMENT COMPLETED. 02 AT 4 L/M PER NC. LEFT THUMB SL. TELEMERTY SHOWS SR. UP AB SUKHWINDER. DENIES ANY NEEDS CALL LIGHT IN REACH WITH SR UP. REFUSES SCDS
[2017-01-01 07:55] VITALS: BP 135/61
--- NOTE | 2017-01-01 08:34 | NUR ---
RESTS WITH EYES CLOSED. RESP UL ON . IV PATENT. CALL LIGHT IN REACH. WILL CONT. PLAN OF CARE.
[2017-01-01 11:22] VITALS: BP 126/66
[2017-01-01 15:55] VITALS: BP 102/45
--- NOTE | 2017-01-01 17:31 | NUR ---
UP TO BATHROOM. GAIT STEADY. DENIES ANY NEEDS. TELEMERTY SHOWS SR. WILL MONITOR
[2017-01-01 19:00] VITALS: BP 126/57
--- NOTE | 2017-01-01 19:30 | NUR ---
PT IN BED RESTING QUIETLY. BREATHING EVEN AND UNLABORED. FAMLIY PRESENT IN ROOM X2. BED RAILS UP X2. GAVE PT 240 MLS WATER PER REQUEST. DENIES ANY OTHER NEEDS AT THIS TIME. BED IN LOW POSITION, CALL LIGHT WITHIN REACH.
--- NOTE | 2017-01-01 20:58 | NUR ---
PT IN BED RESTING QUEITLY. ZITHROMAX IV STARTED AT 125 ML/HR TO INFUSE OVER 2 HRS. BREATHING EVEN AND UNLABORED. BED RAILS UP X2. BED IN LOW POSITION, CALL LIGHT WITHIN REACH.
--- NOTE | 2017-01-01 23:05 | NUR ---
PT IN BED RESTING QUEITLY. ZITHROMAX COMPLETED. MAXIPIME HUNG AND GOING AT 50ML/HR TO INFUSE OVER 1 HR. PT C/O PAIN IN SHOULDER. GIVEN PRN TYLENOL. DENIES ANY OTHER NEEDS AT THIS TIME. BED RAILS UP X2. BED IN LOW POSITION CALL LIGHT WITHIN REACH.
--- NOTE | 2017-01-02 00:57 | NUR ---
PT IN BED RESTING QUEITLY. BREATHING EVEN AND UNLABORED. SALINE LOCKED. DENIES ANY PAIN OR NEEDS AT THIS TIME. BED RAILS UP X2. BED IN LOW POSITION, CALL LIGHT WITHIN REACH.
[2017-01-02 04:02] VITALS: BP 134/68
--- NOTE | 2017-01-02 06:42 | NUR ---
PT IN BED RESTING QUIETLY. MAXIPIME IV STARTED TO INFUSE OVER ONE HOUR. PT DENIES ANY PAIN OR NEEDS AT THIS TIME. BED IN LOW POSITION, CALL LIGHT WITHIN REACH.
[2017-01-02 06:43] LABS: BASOPHILS 0 % (0-2); EOSINOPHILS 0 % (0-7); HEMATOCRIT 35.6 % (36.0-48.0); HEMOGLOBIN 10.4 g/dL (12-16); IMMATURE GRANULOCYTES 0.4 % (0-5); LYMPHOCYTES 5.5 % (15-50); MCH 22.5 pg (26.0-34.0); MCHC 29.2 g/dL (31.0-37.0); MCV 76.9 fL (80.0-100.0); MONOCYTES 0.8 % (2-11); NEUTROPHILS 93.3 % (40-80); PLATELET COUNT 208 10x3/uL (130-400); RBC 4.63 10x6/uL (4.00-5.40); RDW 21.2 % (11.5-14.5)
[2017-01-02 06:45] LABS: WBC 8.3 10x3/uL (4.8-10.8)
[2017-01-02 07:13] LABS: ANION GAP 9.6 mmol/L (8-16); CALCIUM 8.3 mg/dL (8.5-10.1); CARBON DIOXIDE 33.3 mmol/L (21.0-32.0); CREATININE - SERUM 0.9 mg/dL (0.6-1.3); POTASSIUM - SERUM 4.9 mmol/L (3.5-5.1)
[2017-01-02 07:45] VITALS: BP 136/70
--- NOTE | 2017-01-02 08:20 | NUR ---
ASSESSMENT PER FLOW SHEET.PT WITHOUT DISTRESS.DENIES NEDS.CALL LIGHT IN REACH
[2017-01-02 11:37] VITALS: BP 116/64
--- NOTE | 2017-01-02 12:55 | NUR ---
UP TO WASH.PT WITHOUT DISTRESS.MONITOR
[2017-01-02 16:08] VITALS: BP 132/73
--- NOTE | 2017-01-02 18:48 | NUR ---
REMAINS WITHOUT DISTRESS. FAMILY TO VISIT. WITHOUT CHANGE FROM INITIAL SHIFT ASSESSMENT.CONT PLAN OF CARE
--- NOTE | 2017-01-02 19:40 | NUR ---
ALERT/AWAKE RETURNING TO BED FROM BATHROOM. AMBULATING WITH STEADY GAIT, SOME SOB OBSERVED. HAS 02 AT 4L/NC. IV IN L THUMB INTACT. DENIES PAIN OR ANY NEEDS. MULTIPLE VISITORS PRESENT IN ROOM.
[2017-01-02 20:32] VITALS: BP 123/51
[2017-01-03 00:05] VITALS: BP 123/81
--- NOTE | 2017-01-03 00:30 | NUR ---
RESTING QUIETLY WITH EYES CLOSED. RR 18 EVEN U/L. NO S/S OF DISCOMFORT. BED IS LOW WITH SR UP X2. CL IN REACH.
[2017-01-03 05:21] VITALS: BP 153/69
[2017-01-03 05:21] LABS: BASOPHILS 0 % (0-2); EOSINOPHILS 0 % (0-7); HEMATOCRIT 35.8 % (36.0-48.0); HEMOGLOBIN 10.6 g/dL (12-16); IMMATURE GRANULOCYTES 0.4 % (0-5); LYMPHOCYTES 5.1 % (15-50); MCH 22.5 pg (26.0-34.0); MCHC 29.6 g/dL (31.0-37.0); MCV 75.8 fL (80.0-100.0); MEAN PLATELET VOLUME 10.2 fL (7.4-10.4); MONOCYTES 2.2 % (2-11); NEUTROPHILS 92.3 % (40-80); PLATELET COUNT 245 10x3/uL (130-400); RBC 4.72 10x6/uL (4.00-5.40); RDW 20.7 % (11.5-14.5)
[2017-01-03 05:24] LABS: WBC 11.4 10x3/uL (4.8-10.8)
[2017-01-03 05:30] LABS: ANION GAP 8.5 mmol/L (8-16); CALCIUM 8.5 mg/dL (8.5-10.1); CARBON DIOXIDE 36.8 mmol/L (21.0-32.0); POTASSIUM - SERUM 4.3 mmol/L (3.5-5.1)
--- NOTE | 2017-01-03 06:32 | NUR ---
TAKEN TO RADIOLOGY DEPT FOR CXR. UNHOOKED FROM IV.
[2017-01-03 07:45] VITALS: BP 132/85
--- NOTE | 2017-01-03 09:23 | NUR ---
AM ROUNDS COMPLETED. MEDICATIONS GIVEN. PT A&O SITTING UP IN BED RESTING QUIETLY WATCHING TV AND STATES SHE HOPES TO BE D/C SOMETIME TODAY OR TOMORROW. RR NONLABORED AT REST BUT LABORED UPON EXERTION. LLL WHEEZING NOTED EXPIRATORY. OTHER LUNG SOUNDS CTA. NC @3L IN PLACE AND PT STATES SHE WEARS 4L CONTINUOUSLY AT HOME. L.THUMB/WRIST PIV DRSG SOILED, NEW TEGADERM APPLIED AND DATED, SITE CLEAN AND PATENT. PT DENIES ANY CURRENT PAIN OR FURTHER NEEDS AT THIS TIME. CL IN REACH, BED IN LOWEST, SIDE RAILS X2. WILL CPOC.
[2017-01-03 11:50] VITALS: BP 115/53
[2017-01-03 15:40] VITALS: BP 129/81
--- NOTE | 2017-01-03 16:31 | NUR ---
IVPB ANBX COMPLETED. SL PTS L.WRIST PIV. PT DENIES ANY CURRENT PAIN OR NEEDS SITTING UP IN BED RESTING QUIETLY WAITING ON DINNER. PT STATES SHE IS BREATHING BETTER OVERALL AND FEELING BETTER. NO CURRENT NEEDS. WILL CPOC.
--- NOTE | 2017-01-03 19:40 | NUR ---
MECHANIC SENIOR AT BEDSIDE TO OBTAIN VITALS, CALL LIGHT IN REACH. WILL CONTINUE WITH PLAN OF CARE.
--- NOTE | 2017-01-03 19:47 | NUR ---
PT IN BED FAMILY AT BEDSIDE. DENIES NEEDS AT THIS TIME.
[2017-01-03 20:00] VITALS: BP 141/78
[2017-01-04] VITALS: BP 121/43
[2017-01-04 04:00] VITALS: BP 115/54
[2017-01-04 05:45] LABS: BASOPHILS 0.1 % (0-2); EOSINOPHILS 0 % (0-7); HEMATOCRIT 37.5 % (36.0-48.0); HEMOGLOBIN 11.1 g/dL (12-16); IMMATURE GRANULOCYTES 0.3 % (0-5); LYMPHOCYTES 4.3 % (15-50); MCH 22.4 pg (26.0-34.0); MCHC 29.6 g/dL (31.0-37.0); MCV 75.8 fL (80.0-100.0); MEAN PLATELET VOLUME 10.1 fL (7.4-10.4); MONOCYTES 2.1 % (2-11); NEUTROPHILS 93.2 % (40-80); PLATELET COUNT 213 10x3/uL (130-400); RBC 4.95 10x6/uL (4.00-5.40); RDW 20.7 % (11.5-14.5); WBC 12.1 10x3/uL (4.8-10.8)
[2017-01-04 05:52] LABS: ANION GAP 6.4 mmol/L (8-16); CALCIUM 8.6 mg/dL (8.5-10.1); CARBON DIOXIDE 36.2 mmol/L (21.0-32.0); POTASSIUM - SERUM 4.6 mmol/L (3.5-5.1)
[2017-01-04 08:02] VITALS: BP 114/55
--- NOTE | 2017-01-04 08:03 | NUR ---
AM ROUNDS - PT IS UP AND WALKING AROUND IN HER ROOM. MONITOR SHOWING SR, HR 88. PT ON 4L O2 VIA NC. IV TO LEFT THUMB. NO NEEDS AT THIS TIME. NON SKID SOCKS ON, CALL URENA IN USE/REACH. BED AT LOWEST POSIITON. WILL CONTINUE TO MONITOR
[2017-01-04 11:08] VITALS: BMI 31.7
[2017-01-04 12:00] VITALS: BP 97/55
--- NOTE | 2017-01-04 13:14 | NUR ---
Patient Name: RIKKI LUCERO Admission Status: Elective Accout number: [id number] Admission Date: 12-29-2016 : 1935 Admission Diagnosis:PNEUMONIA, UNSPECIFIED ORGANISM Attending: PAM ALVA Current LOS: 6 Anticipated DC Date: Planned Disposition: Home with Home Health Primary Insurance: MEDICARE A & B PLANNED EXTERNAL PROVIDER: [facility] Discharge Planning Comments: * Is the patient Alert and Oriented? Yes 0 * How many steps to enter\exit or inside your home? 4 0 * PCP DR. AUSTIN 0 * Pharmacy [facility] 0 * Preadmission Environment Home Alone 0 * ADLs Independent 0 * Equipment Oxygen Walker 0 * Other Equipment HOME AND PORTABLE OXYGEN [facility] - MEDICAL EQUIPMENT PROVIDER 0 * List name and contact numbers for known caregivers / representatives who currently or will assist patient after discharge: ADITYA VASQUEZ, TOMMYR, 0 * Community resources currently utilized Home Health 0 * Please name any agencies selected above. [facility], NURSING AND PHYSICAL THERAPY 0 * Additional services required to return to the preadmission environment? No 0 * Can the patient safely return to the preadmission environment? Yes 0 * Has this patient been hospitalized within the prior 30 days at any hospital? Yes 0 CM MET WITH PT IN ROOM TO DISCUSS DISCHARGE PLANNING AND NEEDS. PT REPORTS LIVING AT HOME INDEPENDENTLY AND ALONE. PT'S DAUGHTER IS LIVING NEXT DOOR BUT WILL BE STAYING WITH PT IN THE HOME AT DISCHARGE. PT HAS A CANE AND HOME / PORTABLE OXYGEN FROM [facility]. PT HAS HOME HEALTH WITH [facility] FOR NURSING AND PHYSICAL THERAPY. CM DISCUSSED AVAILABILITY OF HOME HEALTH, REHAB SERVICES AND MEDICAL EQUIPMENT. PT DENIES DISCHARGE NEEDS OTHER THAN HAVING HER HOME HEALTH RESUMED, REPORTS HER DAUGHTER WILL PICK HER UP FOR DISCHARGE HOME. IMPORTANT MESSAGE FROM MEDICARE PROVIDED AND EXPLAINED. PT PLANS TO DISCHARGE HOME, DAUGHTER WILL STAY WITH PT AND ASSIST NEEDED. TO RESUME HOME HEALTH, NOTIFY AALIYAH AT [phone], FAX DISCHARGE INFORMATION TO [facility] AT [phone]. Opener Tender: Jett Stauffer
--- NOTE | 2017-01-04 14:34 | NUR ---
PT IN BED WITH FAMILY AT BEDSIDE AT THIS TIME. NO NEEDS. WILL CONTINUE OT MONITOR
[2017-01-04 16:00] VITALS: BP 108/73
[2017-01-04 19:00] VITALS: BP 167/87
--- NOTE | 2017-01-04 19:30 | NUR ---
RECEIVING RESP UPDRAFT TX. DENIES ANY NEEDS OR DISCOMFORTS. ASSESSMENTS COMPLETED. IV IN L HAND INTACT SL. REFUSED SCD'S ON. TELEMETRY SHOWS 79 SR WITH BBB. BED IS LOW WITH SR UP X2. HAS CALL LIGHT AND BEDSIDE TABLE WITH PERSONAL ITEMS IN REACH.
--- NOTE | 2017-01-04 22:10 | NUR ---
ADMIN SCHED MEDS. DENIES ANY NEEDS OR DISCOMFORTS.
[2017-01-05] VITALS: BP 130/88
[2017-01-05 04:00] VITALS: BP 166/87
--- NOTE | 2017-01-05 05:13 | NUR ---
RESTING WITH EYES CLOSED. RR EVEN U/L. NO S/S OF DISCOMFORT. CL IN REACH.
[2017-01-05 08:00] VITALS: BP 126/69
--- NOTE | 2017-01-05 09:39 | NUR ---
MORNING MEDICATIONS GIVEN. UPON PUSHING PTS IVP STERIOD, NOTED PIV TO BE INFILTRATED, D/C WITH CATH TIP FULLY INTACT AND WILL RESITE HER. LUNGS SOUNDS ARE UNCHANGED FROM MY PREVIOUS ASSESSMENT A DAY AGO, CTA THROUGHOUT LOBES WITH EXPIRATORY WHEEZING NOTED TO LLL. PT STATES SHE IS FEELING BETTER THOUGH AND BREATHING BETTER AND STATES SHE CAN TELL A CHANGE SINCE THE ANBX AND STERIODS. PT DENIES ANY CURRENT PAIN OR NEEDS AT THIS TIME. CL IN REACH, BED IN LOWEST, SIDE RAILS X2. WILL CPOC.
[2017-01-05 12:00] VITALS: BP 125/69
[2017-01-05 16:00] VITALS: BP 130/67
[2017-01-05 19:00] VITALS: BP 156/91
--- NOTE | 2017-01-05 19:46 | NUR ---
RECEIVED REPORT, WILL ASSUME CARE OF PT, SITTING UP ON SIDE OF BED, DOING BREATHING EXERCISES, DENIES ANY NEEDS, CALL LIGHT IN REACH, WILL CONTINUE PLAN OF CARE
[2017-01-06] VITALS: BP 123/56
--- NOTE | 2017-01-06 00:23 | NUR ---
ASSESSMENT COMPLETE, SEE FLOW SHEET, PT RESTING NO DISTRESS NOTICED, BED IS LOW, SRX2, CALL LIGHT IN REACH, WILL CONTINUE PLAN OF CARE
[2017-01-06 04:03] VITALS: BP 128/63
[2017-01-06 06:10] LABS: BASOPHILS 0.1 % (0-2); EOSINOPHILS 0 % (0-7); HEMATOCRIT 36.2 % (36.0-48.0); HEMOGLOBIN 10.4 g/dL (12-16); IMMATURE GRANULOCYTES 0.7 % (0-5); LYMPHOCYTES 4.4 % (15-50); MCH 21.8 pg (26.0-34.0); MCHC 28.7 g/dL (31.0-37.0); MCV 75.7 fL (80.0-100.0); MEAN PLATELET VOLUME 9.6 fL (7.4-10.4); MONOCYTES 2.5 % (2-11); NEUTROPHILS 92.3 % (40-80); RBC 4.78 10x6/uL (4.00-5.40); RDW 20.4 % (11.5-14.5)
[2017-01-06 06:13] LABS: PLATELET COUNT 348 10x3/uL (130-400)
[2017-01-06 06:26] LABS: ANION GAP 6.5 mmol/L (8-16); CALCIUM 8.3 mg/dL (8.5-10.1); CARBON DIOXIDE 37.3 mmol/L (21.0-32.0); POTASSIUM - SERUM 4.8 mmol/L (3.5-5.1)
--- NOTE | 2017-01-06 07:45 | NUR ---
INTRODUCED MYSELF TO PT PRIMARY RN FOR TODAYS SHIFT. PT FAMILIAR WITH ME HER NURSE BEFORE. PT A&O SITTING UP ON EDGE OF BED. SHIFT ASSESSMENT COMPLETED AND NO CHANGES NOTED SEE PREVIOUS ASSESSMENT FOR DETAIL. TELEMETRY IN PLACE RUNNING SR WERE [employer]. PTS RR NONLABORED WITH NC @3L IN PLACE LUNGS ARE CTA LLL NOW DIMINISHED NO WHEEZING NOTED THIS AM. PT HAS A L.FA PIV WITH DRSG CDI AND SWAB CAPS IN USE. PT STATES SHE IS BEING DISCHARGED TOMORROW AND EXCITED ABOUT IT AND FEELS READY. CL IN REACH, BED IN LOWEST, SIDE RAILS X2. WILL CPOC.
[2017-01-06 08:00] VITALS: BP 156/63
--- NOTE | 2017-01-06 11:02 | NUR ---
PT SITTING UP IN BED RESTING QUIETLY WATCHING TV. RR NONLABORED PT STATES SHE IS DOING WELL AND DENIES ANY CURRENT NEEDS. CL IN REACH. WILL CPOC.
[2017-01-06 12:00] VITALS: BP 156/63
--- NOTE | 2017-01-06 15:28 | NUR ---
CONNECTED PT TO IVPB ANBX INFUSING VIA L.FA PIV WITH DRSG CDI AND SWAB CAPS IN USE. PT SITTING UP IN BEDSIDE CHAIR RESTING AND STATES SHE IS COMFORTABLE. NO FURTHER NEEDS AT THIS TIME. WILL CPOC.
[2017-01-06 16:00] VITALS: BP 118/63
--- NOTE | 2017-01-06 18:35 | NUR ---
PT SITTING UP IN BED RESTING VISITING WITH FAMILY. PT STATES SHE HAS HAD A GOOD DAY OVERALL AND DENIES ANY CURRENT PAIN OR NEEDS. CL IN REACH. WILL CPOC.
--- NOTE | 2017-01-06 19:25 | NUR ---
RECEIVED REPORT, WILL ASSUME CARE OF PT, PT DENIES ANY NEEDS, BED IS LOW, SR2, CALL LIGHT IN REACH, WILL CONTINUE PLAN OF CARE
[2017-01-06 20:26] VITALS: BP 116/59
[2017-01-07 00:44] VITALS: BP 104/57
[2017-01-07 05:43] VITALS: BP 119/48
--- NOTE | 2017-01-07 07:09 | NUR ---
AM ROUNDS - PT IN BED AND APPEARS TO BE SLEEPING AT THIS TIME WITH EQUALA ND NON LABORED BREATHING. MONITOR SHOWING SR WITH BBB, HR 62. PT IS ON 3L O2 VIA NC. IV TO LEFT FA, SL. BED AT LOWEST POSITION. CALL URENA IN USE/REACH. SIDE RAILS UP 2. WILL CONTINUE TO MONITOR
[2017-01-07 08:00] VITALS: BP 127/68
--- NOTE | 2017-01-07 11:44 | CN ---
PATIENT NAME:RIKKI RUST MEDICAL RECORD: [id number] : 37 LOCATION:D. D.2139 ADMIT DATE: 12/29/16 ACCOUNT: [id number] CONSULTING PHYSICIAN: ROBERT SADLER MD REFERRING PHYSICIAN: KAREY ALVA MD DATE OF CONSULTATION: 12/30/2016 CONSULT REQUESTING PHYSICIAN: Karey Alva MD REASON FOR CONSULTATION: Questionable pneumonia, acute exacerbation of COPD. HISTORY OF PRESENT ILLNESS: Ms. Rust is an 81-year-old female, very well known to us. According to the patient, she was sick for the last 2-3 days, she is coughing, the coughing is productive with yellow greenish color sputum, sometimes it is a little blood-tinged. This is no significant blood without phlegm. Denies any chest pain. She was also short of breath. She was seen in the walk-in clinic yesterday and directly admitted to the hospital. Denies any fever or chill. No night sweats. REVIEW OF SYSTEMS: As in history of present illness. PAST MEDICAL HISTORY: 1. COPD. 2. Obstructive sleep apnea. She is not oxygen dependent, more chronic hypoxic respiratory failure. 3. History of recurrent pneumonia and bronchitis. 4. Coronary artery disease. 5. Hypertension. 6. Atrial fibrillation. 7. Congestive heart failure with the EF of 15%. PAST SURGICAL HISTORY: 1. Appendectomy. 2. Hysterectomy. 3. Cardiac catheterization with stent placement. 4. Varicose vein surgery. 5. Shoulder surgery. 6. Wrist surgery. ALLERGIES: SHE IS ALLERGIC TO SULFA, DEPLIN AND AVELOX. PRESENT MEDICATIONS: On [employer] is reviewed. PERSONAL AND SOCIAL HISTORY: The patient is an ex-smoker. She is a nondrinker. FAMILY HISTORY: Noncontributory. PHYSICAL EXAMINATION: GENERAL: Now, she is lying comfortably in bed. She is not in acute distress. VITAL SIGNS: The blood pressure is 107/53, pulse is 65, respirations 23, temperature 98.2, SpO2 is 91% on 4 liters nasal cannula. HEENT: Conjunctivae are pink. Sclerae nonicteric. NECK: Supple. No JVD. CHEST: There is left basal crackle. No wheeze. HEART: Rhythm regular, normal sound, no murmur. CONSULT REPORT [id number] NIC,AVERY ABDOMEN: Soft, bowel sounds present. No hepatosplenomegaly. RECTAL: Deferred. EXTREMITIES: No cyanosis, no clubbing, no pedal edema. SKIN: Warm, normal turgor. CENTRAL NERVOUS SYSTEM: The patient is awake and alert. There is no obvious cranial nerve abnormality. The gait was not tested. DIAGNOSTIC DATA: There is no chest x-ray followup on the labs. IMPRESSION: 1. Acute exacerbation of chronic obstructive pulmonary disease. 2. Jmfij-iz-dfprwin hypoxic respiratory failure. 3. Possible pneumonia in left lower lobe, but there is no chest x-ray available. 4. Hemoptysis, most likely secondary to pneumonia and acute bronchitis. 5. Atrial fibrillation. 6. History of hypertension. 7. History of coronary artery disease. RECOMMENDATION: 1. Albuterol-ipratropium nebulizer. 2. Brovana-budesonide nebulizer. 3. Start methylprednisolone IV. 4. Continue Zithromax and Rocephin. 5. Check the chest Radiograph, CBC and CMP. Dr. Alva, thank you for involving me in the care of Ms. Rust. TRANSINT:[id number] Voice Confirmation ID: [id number] DOCUMENT ID: [id number] ROBERT SADLER MD at 1144 CC: KAREY ALVA MD [id number] DICTATION DATE: 12/30/16 152 PRESSURE DISPATCHER: 12/30/16 1606 ADM IN [place] [id number] [place] [id number]
[2017-01-07 12:00] VITALS: BP 115/53
[2017-01-07] MEDS ORDERED: MUCINEX DM ER1 EAC1 PO (12:03)
[2017-01-07] MEDS ORDERED: PREDNISONE10 MG PO (12:04)
--- NOTE | 2017-01-07 13:30 | NUR ---
Patient Name: RIKKI LUCERO Encounter No: [id number] : 1935 Primary Insurance: MEDICARE A & B Anticipated DC Date: 01-07-2017 Planned Disposition: Home with Home Health External Planned Provider: [facility] DCP follow-up note: CM RECEIVED DISCHARGE ORDER. CM MET WITH PT IN ROOM TO DISCUSS DISCHARGE NEEDS AND PLANNING. CM DISCUSSED AVAILABILITY OF HOME HEALTH, REHAB SERVICES AND MEDICAL EQUIPMENT. PT WANTS [facility] RESUMED, HER DAUGHTER IS PICKING HER UP LATER AND WILL BRING PORTABLE OXYGEN TO GET PT HOME. PT DENIES FURTHER DISCHARGE NEEDS. IMPORTANT MESSAGE FROM MEDICARE PROVIDED AND EXPLAINED. CM CALLED ESTUARDO AT [facility] AT [phone], NOTIFIED OF DISCHARGE HOME FOR RESUMPTION OF HOME HEALTH CARE; CM FAXED DISCHARGE INFORMATION TO [facility] AT [phone]. Lay Out Machine Operator: Jett Stauffer
--- NOTE | 2017-01-07 14:22 | NUR ---
DR. WALTON HERE TO ROUND. PT EATING SMALL AMTS.
--- NOTE | 2017-01-07 15:17 | NUR ---
PT IS IN BED AT THIS TIME. STATES SHE IS READY TO GO HOME. NO NEEDS AT THIS TIME. WILL CONTINUE TO MONITOR
--- NOTE | 2017-01-07 15:59 | NUR ---
D/C - WRITTENA DN VERBAL D/C INSTRUCTIONS GIVEN TO PT. IV TO LEFT FA D/C CATH TIP INTACT, 2 BY 2 DRESSING APPLIES AND SECURED WITH TAPE. PT TOLERATED WELL. HEART MONITOR D/C AND GIVEN BACK TO PATIENT SUPPORT ASSISTANT. PT IS GETTING DRESSED AND GATHERING HER BELONGINGS.
--- NOTE | 2017-01-07 16:14 | NUR ---
PT LEFT FLOOR VIA WHEELCHAIR WITH TIRE MAINTENANCE TECHNICIAN. WILL D/C
== END 2017-01-07 16:14 | disposition home health service (06) | DRG 177 ==
LOC: D.M2 16:13
PROVIDERS: Family Medicine; ADMIT Family Medicine
DX: J15.6 Pneumonia due to other Gram-negative bacteria (principal); J96.21 Acute and chronic respiratory failure with hypoxia; J44.0 Chronic obstructive pulmonary disease with (acute) lower respiratory infection; J44.1 Chronic obstructive pulmonary disease with (acute) exacerbation; I50.22 Chronic systolic (congestive) heart failure; J98.11 Atelectasis; J20.9 Acute bronchitis, unspecified; G47.33 Obstructive sleep apnea (adult) (pediatric); I25.10 Atherosclerotic heart disease of native coronary artery without angina pectoris; K59.00 Constipation, unspecified; I48.91 Unspecified atrial fibrillation; I11.0 Hypertensive heart disease with heart failure; Z87.891 Personal history of nicotine dependence

== ENCOUNTER 2017-01-27 08:50 | Inpatient (IN) | payer MEDICARE ==
[~2017-01-27] VITALS: Ht 160 cm; Wt 82.6 kg
[2017-01-27] VITALS (12 sets, daily range): BP systolic 108–137; BP diastolic 61–85; BMI 32.0
[2017-01-27 09:06] LABS: BASOPHILS 0.1 % (0-2); EOSINOPHILS 0.1 % (0-7); HEMATOCRIT 36.9 % (36.0-48.0); HEMOGLOBIN 10.8 g/dL (12-16); IMMATURE GRANULOCYTES 0.4 % (0-5); LYMPHOCYTES 17.5 % (15-50); MCH 23.1 pg (26.0-34.0); MCHC 29.3 g/dL (31.0-37.0); MCV 78.8 fL (80.0-100.0); MONOCYTES 2.8 % (2-11); NEUTROPHILS 79.1 % (40-80); RBC 4.68 10x6/uL (4.00-5.40); RDW 22.9 % (11.5-14.5); WBC 19.3 10x3/uL (4.8-10.8)
[2017-01-27 09:07] LABS: PLATELET COUNT 137 10x3/uL (130-400)
[2017-01-27 09:22] LABS: ALBUMIN 3.1 g/dL (3.4-5.0); ANION GAP 12.4 mmol/L (8-16); BILIRUBIN - TOTAL 0.58 mg/dL (0.2-1.3); CALCIUM 8.2 mg/dL (8.5-10.1); CARBON DIOXIDE 30.8 mmol/L (21.0-32.0); CREATININE - SERUM 1.2 mg/dL (0.6-1.3); POTASSIUM - SERUM 4.2 mmol/L (3.5-5.1); PROTEIN - SERUM 6.3 g/dL (6.4-8.2)
[2017-01-27 09:38] LABS: APTT 28.2 SECONDS (22.8-39.4); INR 0.95 (0.85-1.17); PROTIME 12.5 SECONDS (11.6-15.0)
[2017-01-27 10:49] LABS: TROPONIN-I 0.052 ng/mL (0.000-0.060)
[2017-01-27 10:58] LABS: APPEARANCE HAZY (CLEAR); BILIRUBIN NEGATIVE (NEGATIVE); COLOR YELLOW (YELLOW); GLUCOSE NEGATIVE (NEGATIVE); KETONE NEGATIVE (NEGATIVE); NITRITE NEGATIVE (NEGATIVE); PROTEIN 1+ mg/dL (NEGATIVE); UROBILINOGEN NORMAL (NORMAL)
[2017-01-27 10:59] LABS: AMORPHOUS SEDIMENT <1+ /lpf (NONE SEEN); BACTERIA FEW /hpf (NONE SEEN); EPITHELIAL CELLS 0-5 /hpf (0-5); GRANULAR CAST 0-5 /lpf (NONE SEEN); RED CELLS - URINE 0-5 /hpf (0-5); WHITE CELLS - URINE 0-5 /hpf (0-5)
[2017-01-27 11:02] LABS: UDS - AMPHET NEGATIVE QUAL (NEGATIVE); UDS - BARB NEGATIVE QUAL (NEGATIVE); UDS - BENZO NEGATIVE QUAL (NEGATIVE); UDS - COCAINE NEGATIVE QUAL (NEGATIVE); UDS - OPIATE NEGATIVE QUAL (NEGATIVE); UDS - PCP NEGATIVE QUAL (NEGATIVE); UDS - THC NEGATIVE QUAL (NEGATIVE)
--- NOTE | 2017-01-27 12:20 | NUR ---
REC'D FROM ER AND HOOKED UP TO CM. A&O X3. LEFT HAND PIV WITH ZOSYN INFUSING. ROBERT PATENT TO GRAVITY WITH CL Y URINE PRESENT.
--- NOTE | 2017-01-27 14:00 | NUR ---
REMAINS ON BIPAP. SATTING 97%. RESTING WITH EYES CLOSED. VSS.
--- NOTE | 2017-01-27 15:30 | NUR ---
REMAINS ON BIPAP. DENIES NEEDS.
--- NOTE | 2017-01-27 16:19 | NUR ---
OFF OF BIPAP AND PLACED ON 6L O2 VIA NC.
--- NOTE | 2017-01-27 16:22 | NUR ---
PLACED ON NC AT 6L BY YULISA ELIZABETH.
--- NOTE | 2017-01-27 16:30 | NUR ---
SATTING 96%. ON 6L VIA NC.
[2017-01-27] MEDS ORDERED: CELEXA10 MG PO (17:48)
--- NOTE | 2017-01-27 18:00 | NUR ---
DENIES NEEDS. VSS.
--- NOTE | 2017-01-27 18:14 | HP ---
PATIENT: RIKKI RUST MEDICAL RECORD: [id number] ACCOUNT: [id number] LOCATION:[facility] D.2302 : 37 ADMISSION DATE: 01/27/17 HISTORY AND PHYSICAL EXAMINATION DATE OF ADMISSION: 01/27/2017 HISTORY: Ms. Rust is an 81-year-old white female that presents to the Emergency Room after falling at home last night. She states she was getting up to go to the bathroom, was trying to reach for a hand hold, missed, and fell. She denies loss of consciousness or syncope. She denies any loss of consciousness after the fall. She did strike her face. She has got a contusion of the same. CT of head and cervical spine were negative for fracture or dislocation. Chest x-ray reveals some xcfp-my-rkfdeuhi congestive heart failure and right lower lobe atelectasis. She is unsure for how long she laid on the floor. CT of facial bones were actually negative for fracture. Chronic sinusitis was noted. She has a history of recurrent COPD and is frequently hospitalized. She sees Dr. Cabral and Dr. Hung on a routine basis. Dr. Wagner is her primary care physician. Due to hypotension and hypoxia with hypercarbia, she is admitted to the ICU. Her initial CO2 was 80. It is now down to 20. She appears to be oxygenating better. She is alert and is looking better at this time. PAST MEDICAL HISTORY: Her past medical history is significant for neuropathy, hypertension, CHF, coronary artery disease with previous PTCA, COPD, recurrent pneumonias, obstructive sleep disorder, chronic O2 therapy, depression, and anxiety. PAST SURGICAL HISTORY: Previous surgeries include appendectomy, hysterectomy, and previous PTCA. ALLERGIES: SULFA, DEPLIN, AND AVELOX. HOME MEDICATIONS: Include Atrovent updrafts, amiodarone 200 mg daily, atorvastatin 10 mg a day, Coreg 3.125 daily, isosorbide mononitrate 30 mg a day, spironolactone 25 mg a day, baby aspirin a day, gabapentin 300 mg at bedtime, lorazepam 0.5 mg p.r.n. anxiety, Ambien 5 mg at bedtime p.r.n. sleep, Lasix 40 mg b.i.d., KCl 10 mEq b.i.d., budesonide 0.5 b.i.d., Mucinex DM, Singulair 10 mg a day, magnesium oxide 400 b.i.d., pantoprazole 20 a day, MiraLAX, Senokot, and prednisone 10 mg a day. FAMILY HISTORY: Noncontributory. SOCIAL HISTORY: The patient has been a smoker in the past. She does not drink. REVIEW OF SYSTEMS: She complains of some left facial pain. She denies any fever. She states that she is having some neck and upper back pain. It hurts to breathe. She denies any chest pain per se. She has chronic shortness of breath, which is near baseline. She denies any vomiting or diarrhea. She denies any leg pain. PHYSICAL EXAMINATION: GENERAL: Elderly white female, who appears mildly to moderately ill. SKIN: She has got some facial contusions over the left face. HEENT: Sclerae nonicteric. Mucous membranes are moist. HISTORY AND PHYSICAL [id number] RIKKI RUST HEART: Regularly irregular. LUNGS: Breath sounds bilaterally somewhat diminished. ABDOMEN: Soft. She has got some tenderness across her mid thoracic area. EXTREMITIES: Lower extremities reveal good distal pulses. No edema. She has got quite a bit of superficial varicosities in the lower extremities, little worse on the left than the right. NEUROLOGIC: She moves all extremities without any restriction and appears to be neurologically intact. Mood is appropriate. IMPRESSION: 1. Fall. 2. Facial contusion. 3. Chronic COPD with exacerbation, tiqbv-hk-nforoyr respiratory failure with hypoxia, and hypercarbia. 4. Hypotension. PLAN: Admit to ICU. Consult Dr. Hung, appreciate his help. Pulmonary toilet. Review x-rays and CTs. Monitor sugars. See orders for plan. TRANSINT:[id number] Voice Confirmation ID: [id number] DOCUMENT ID: [id number] SANJANA REGALADO DO at [id number] CC: [id number] DICTATION DATE: 01/27/17 1635 OIL DISTRIBUTOR TENDER: 01/27/17 1714 ADM IN [facility] [address] [place] [address]
--- NOTE | 2017-01-27 19:25 | NUR ---
SHIFT ASSESSMENT COMPLETED PER FLOW SHEET. PT LAYING IN BED AAO. S1S2 PRESENT. RADIAL AND PEDAL PULSES PALP. TELEMETRY MONITORING HR 72. 7 L O2 VIA OXYMIZER. BREATHING SHALLOW. INSPIRATORY WHEEZES TO ALL LOBES. BS ACTIVE X4. ROBERT CATHETER TO GRAVITY DRAINING CLEAR YELLOW URINE. BRUISES AND SCAB/SORES NOTED TO FACE, ARMS, AND LIP, REPORTS INJURIES ARE DUE TO A RECENT FALL WHEN SHE TRIED GETTING OUT OF BED AT HOME TO GO TO THE BATHROOM AT 4 AM. REDDEDED AREA AND SCAB/SORES NOTED TO BUTTOCK AND COCCYX, STATED IT WAS DUE A PREVIOUS HOSPITALIZATION. PT ABLE TO TURN SELF, ENCOURAGED HER TO TURN AT LEAST EVERY TWO HOURS TO SIDES. PILLOWS PROVIDED TO KEEP HER OFF HER BOTTOM. REDDENED AREA TO RT BUTTOCK STATES IT IS HER DAVI. PILLOW PROVIDED TO KEEP HEELS OFF OF BED. LT HAND PIV, PATENT INFUSING BUMEX GTT. SEE FLOW SHEET FOR COMPLETED ASSESSMENT. WILL CONTINUE TO MONITOR. CALL LIGHT WITHIN REACH. BED IN LOWEST POSITION.
--- NOTE | 2017-01-27 21:13 | NUR ---
MEDS ADMINISTERED PER EMAR. LOTION APPLIED TO FEET PER REQUEST. LIP MOISTURIZER APPLIED PER REQUEST. FACIAL TISSUES GIVEN PER REQUEST. DENIES FURTHER NEEDS. WILL CONTINUE TO MONITOR. CALL LIGHT WITHIN REACH. BED IN LOWEST POSITION. ENCORAGED PT TO TURN, PT ABLE TO TURN SELF. PILLOW PROVIDED TO KEEP PT OFF OF BOTTOM. WILL CONTINUE TO MONITOR.
--- NOTE | 2017-01-27 22:12 | NUR ---
PT LAYING IN BED RESTING. MEDS ADMINISTERED PER EMAR. PRN NORCO GIVEN, SEE EMAR FOR DETAILS. PT DENIES FURTHER NEEDS. ASSISTED WITH REPOSITIONING. WILL CONTINUE TO MONITOR. CALL LIGHT WITHIN REACH. BED IN LOWEST POSITION.
--- NOTE | 2017-01-27 23:15 | NUR ---
REASSESSMENT COMPLETED PER FLOW SHEET, SEE FLOW SHEET FOR DETAILS. PT AAO. DENIES NEEDS. VSS. WILL CONTINUE TO MONITOR. CALL LIGHT WITHIN REACH. BED IN LOWEST POSITION. WILL CONTINUE TO MONITOR.
[2017-01-28] VITALS (20 sets, daily range): BP systolic 90–121; BP diastolic 40–71; Ht 160 cm; Wt 82.6 kg
--- NOTE | 2017-01-28 00:05 | NUR ---
ASSISSTED WITH REPOSITIONING FOR COMFORT. WILL CONTINUE TO MONITOR.
--- NOTE | 2017-01-28 00:06 | NUR ---
PT LAYING IN BED, AAO. SCHEDULED ABX GIVEN, SEE EMAR FOR DETAILS. ROOM AIR TURNED DOWN PER REQUEST. DENIES FURTHER NEEDS. WILL CONTINUE TO MONITOR. CALL LIGHT WITHIN REACH. BED IN LOWEST POSITION.
--- NOTE | 2017-01-28 02:00 | NUR ---
PT LAYING IN BED RESTING, EYES CLOSED. NO DISTRESS NOTED. WILL CONTINUE TO MONITOR.
--- NOTE | 2017-01-28 03:00 | NUR ---
REASSESSMENT COMPLETE PER FLOW SHEET, SEE FOR DETAILS. PT RESTING. AAO. ASSISSTED WITH REPOSITIONING. WATER PROVIDED. LOTION APPLIED TO FEET PER REQUEST. DENIES FURTHER NEEDS. CALL LIGHT WITHIN REACH. BED IN LOWEST POSITION. WILL CONTINUE TO MONITOR.
--- NOTE | 2017-01-28 05:10 | NUR ---
PT LAYING IN BED RESTING. POSITIONED PT UP IN BED FOR COMFORT. ASSISSTED WITH REPOSITIONING TO SIDE. DENIES FURTHER NEEDS. CALL LIGHT WITHIN REACH. BED IN LOWEST POSITION. CALL LIGHT WITHIN REACH. WILL CONTINUE TO MONITOR.
[2017-01-28 05:19] LABS: BASOPHILS 0 % (0-2); EOSINOPHILS 0 % (0-7); HEMATOCRIT 34.6 % (36.0-48.0); HEMOGLOBIN 10.1 g/dL (12-16); IMMATURE GRANULOCYTES 0.3 % (0-5); LYMPHOCYTES 3.9 % (15-50); MCH 22.6 pg (26.0-34.0); MCHC 29.2 g/dL (31.0-37.0); MCV 77.4 fL (80.0-100.0); MONOCYTES 1.3 % (2-11); NEUTROPHILS 94.5 % (40-80); PLATELET COUNT 130 10x3/uL (130-400); RBC 4.47 10x6/uL (4.00-5.40); RDW 22.4 % (11.5-14.5)
[2017-01-28 05:31] LABS: WBC 6.2 10x3/uL (4.8-10.8)
[2017-01-28 05:33] LABS: ANION GAP 7.8 mmol/L (8-16); CALCIUM 7.4 mg/dL (8.5-10.1); CARBON DIOXIDE 39.2 mmol/L (21.0-32.0); CREATININE - SERUM 1.1 mg/dL (0.6-1.3); MAGNESIUM - SERUM 1.6 mg/dL (1.8-2.4)
--- NOTE | 2017-01-28 06:11 | NUR ---
PT LAYING IN BED RESTING. MEDS ADMINISTERED PER EMAR. DENIES NEEDS. CALL LIGHT WITHIN REACH. BED IN LOWEST POSITION. WILL CONTINUE TO MONITOR.
--- NOTE | 2017-01-28 07:00 | NUR ---
PT ALERT AND ORIENTED, VSS, ON 7L OXYMISER, SCATTERED BRUISES ON FACE AND EXTREMETIES FROM RECENT FALL, 20G PIV IN L HAND WITH BUMEX AT 5ML/HR, ROBERT DRAINING CLEAR YELLOW, ON CLEAR LIQUID DIET, TOLERATED WELL, REPOSITIONED, NO PAIN NOTED
--- NOTE | 2017-01-28 09:00 | NUR ---
PT REPOSITIONS SELF WITH ASSISTANCE, VSS, PAIN TO NECK MANAGED WITH PRN NORCO, WILL CONTINUE TO MONITOR
--- NOTE | 2017-01-28 11:18 | NUR ---
PT REPOSIITONED, VSS, DENIES ALL NEEDS, SPOKE WITH DR ALBERTO, ORDERS FOR REGULAR DIET
--- NOTE | 2017-01-28 12:28 | NUR ---
k2.7, TREATING PER ELECTROLYTE PROTOCOL, DR ALBERTO IN UNIT AND AWARE
--- NOTE | 2017-01-28 13:00 | NUR ---
PT ATE LUNCH TOLERATED WELL, DENIES ALL NEEDS, REPOSITIONS SELF, WILL CONTINUE TO MONITOR
--- NOTE | 2017-01-28 15:14 | NUR ---
VSS, NO SOB NOTED, CONTIUES WITH INSPIRATORY WHEEZES, DENIES ALL NEEDS, STATED PRN NORCO DOES HELP NECK PAIN, NO NEEDS NOTED, WILL CONTIUE TO MONITOR
--- NOTE | 2017-01-28 17:22 | NUR ---
PT DENIES ALL NEEDS, VSS, WILL RECHECK KCL AT 1999, ONE MEDIUM SOFT BM ON BSC, WILL CONTINUE TO MONITOR
--- NOTE | 2017-01-28 19:30 | NUR ---
SHIFT ASSESSMENT COMPLETE, PT IS ALERT AND ORIENTED, ON 6L NC WITH 97% O2 SAT. WHEEZES HEARD IN ALL LOBES, S1S2, CM-NSR, PATENT LEFT HAND PIV...SEE IV FLOW SHEET...ABDOMEN IS SOFT AND ROUND WITH ACTIVE BS, PATENT F/C WITH C/Y UOP, ALL PPP, VSS, CALL LIGHT IN REACH
--- NOTE | 2017-01-28 21:00 | NUR ---
NO VISITORS AT THIS TIME, WILL CON'T TO MONITOR
--- NOTE | 2017-01-28 22:32 | NUR ---
REPORT CALLED TO TI OBRIEN. PT TRANSFERED TO MED SURG
--- NOTE | 2017-01-28 22:40 | NUR ---
REC'D PT FROM ICU. NO VISIBLE SIGNS OF DISTRESS. PT DENIES NEEDS AT THIS TIME. BED IN LOWEST POSITION AND CALL LIGHT WITHIN REACH. ENCOURAGED THE PT TO CALL IF SHE HAS NEEDS.
[2017-01-29 04:00] VITALS: BP 108/64
[2017-01-29 06:02] LABS: BASOPHILS 0 % (0-2); EOSINOPHILS 0 % (0-7); HEMATOCRIT 35.3 % (36.0-48.0); HEMOGLOBIN 10.4 g/dL (12-16); IMMATURE GRANULOCYTES 0.2 % (0-5); MCH 22.7 pg (26.0-34.0); MCHC 29.5 g/dL (31.0-37.0); MCV 77.1 fL (80.0-100.0); MONOCYTES 3.9 % (2-11); NEUTROPHILS 89.9 % (40-80); PLATELET COUNT 131 10x3/uL (130-400); RBC 4.58 10x6/uL (4.00-5.40); RDW 22.5 % (11.5-14.5); WBC 6.1 10x3/uL (4.8-10.8)
[2017-01-29 06:38] LABS: ANION GAP 6.6 mmol/L (8-16); CALCIUM 8.3 mg/dL (8.5-10.1); CREATININE - SERUM 1.1 mg/dL (0.6-1.3); MAGNESIUM - SERUM 1.9 mg/dL (1.8-2.4); PHOSPHOROUS 3.4 mg/dL (2.5-4.9); POTASSIUM - SERUM 3.6 mmol/L (3.5-5.1)
[2017-01-29 09:38] VITALS: BP 114/49
--- NOTE | 2017-01-29 13:09 | NUR ---
Patient Name: RIKKI LUCERO Admission Status: ER Accout number: [id number] Admission Date: 01-27-2017 : 1935 Admission Diagnosis:SHORTNESS OF BREATH Attending: SANJANA REGALADO Current LOS: 2 Anticipated DC Date: 02-01-2017 Planned Disposition: Home Primary Insurance: MEDICARE A & B Discharge Planning Comments: CM CALLED DAUGHTER (ZAN) AND SHE STATED HER SISTER NOW LIVES WITH HER MOM AND SOMEONE IN THE FAMILY WILL DRIVE HER HOME AT DISCHARGE. PATIENT HAS 2 STEPS TO ENTER HOME AND 2 STEPS INSIDE. PATIENT NEEDS HELP AT TIMES WITH HER BATH AND MEDS. PATIENT HAS A WALKER, SHOWER CHAIR, OXYGEN, NEBULIZER, AND PORTABLE O2 AT HOME. CANDICE IS CURRENT WITH [facility]. CM WILL CONTINUE TO FOLLOW PATIENT WITH D/C NEEDS AND PLANS. PCP DR. NORMAN PLATA ON [facility]- [phone] ADITYA (DAUGHTER) [phone] B2B Sales Executive: Paola Murphy Is the patient Alert and Oriented? Yes 0 * How many steps to enter\exit or inside your home? 2 0 * PCP DR. AUSTIN 0 * Pharmacy [facility] 0 * Preadmission Environment Home with Family 0 * ADLs Partial Dependent 0 * Partial ADLs (Assistance needed) Bathing Medication Management 0 * Equipment Nebulizer Oxygen Shower Chair Walker 0 * Other Equipment PORTABLE O2 0 * List name and contact numbers for known caregivers / representatives who currently or will assist patient after discharge: ADITYA (DAUGHTER) [phone] 0 * Community resources currently utilized Home Health 0 * Please name any agencies selected above. [facility] 0 * Additional services required to return to the preadmission environment? Yes 0 * Can the patient safely return to the preadmission environment? Yes 0 * Has this patient been hospitalized within the prior 30 days at any hospital? No 0 Grand Total: 0
[2017-01-29 13:11] VITALS: BP 125/63
[2017-01-29 16:23] VITALS: BP 116/65
[2017-01-29 20:00] VITALS: BP 121/64
[2017-01-29 21:57] VITALS: BP 120/64
--- NOTE | 2017-01-29 23:10 | NUR ---
PATIENT REQUESTED AMBIEN, ADMINISTERED PER ORDER. SHE DENIES OTHER NEEDS AT THIS TIME.
[2017-01-30] VITALS: BP 124/62
--- NOTE | 2017-01-30 02:25 | NUR ---
IS RESTING IN BED. C-PAP IS ON. NO DISTRESS NOTED. INSRUCTED TO CALL IF NEEDED ANYTHING, VERBALIZED UNDERSTANDING. BED LOW, LOCKED, CALL LIGHT IN REACH.
[2017-01-30 04:00] VITALS: BP 107/59
[2017-01-30 05:39] LABS: BASOPHILS 0 % (0-2); EOSINOPHILS 0 % (0-7); HEMATOCRIT 35.6 % (36.0-48.0); HEMOGLOBIN 10.3 g/dL (12-16); IMMATURE GRANULOCYTES 0.3 % (0-5); LYMPHOCYTES 5.2 % (15-50); MCH 22.4 pg (26.0-34.0); MCHC 28.9 g/dL (31.0-37.0); MCV 77.6 fL (80.0-100.0); MEAN PLATELET VOLUME 9.8 fL (7.4-10.4); MONOCYTES 5.6 % (2-11); NEUTROPHILS 88.9 % (40-80); PLATELET COUNT 143 10x3/uL (130-400); RBC 4.59 10x6/uL (4.00-5.40); RDW 22.4 % (11.5-14.5); WBC 6.3 10x3/uL (4.8-10.8)
[2017-01-30 05:47] LABS: ANION GAP 8.2 mmol/L (8-16); CALCIUM 8.1 mg/dL (8.5-10.1); CARBON DIOXIDE 39.4 mmol/L (21.0-32.0); MAGNESIUM - SERUM 1.9 mg/dL (1.8-2.4); POTASSIUM - SERUM 3.6 mmol/L (3.5-5.1)
--- NOTE | 2017-01-30 07:51 | NUR ---
PATIENT IN BED WITH IV INTACT. NO COMPLAINTS AT THIS TIME OR SIGNS OF DISTRESS. O2 ON. CALL LIGHT BEN NAIR.
[2017-01-30 08:32] VITALS: BP 133/72
[2017-01-30 12:59] VITALS: BP 114/57
[2017-01-30 16:24] VITALS: BP 138/60
--- NOTE | 2017-01-30 19:50 | NUR ---
A&O, SITTING UP IN BED, DENIES NEEDS, NO DISTRESS NOTED, ASSESSMENT COMPLETE, CALL LIGHT IN REACH, BED LOWEST POSITION, WILL CONTINUE TO MONITOR
--- NOTE | 2017-01-30 21:20 | NUR ---
A&O, MEDS GIVEN PER MAR, CALL LIGHT IN REACH, DENIES NEEDS
--- NOTE | 2017-01-30 23:00 | NUR ---
A&O, LAID BED DOWN TO TRY TO GO TO SLEEP, DENIES NEEDS
[2017-01-30 23:58] VITALS: BP 79/46
[2017-01-31] VITALS (7 sets, daily range): BP systolic 96–130; BP diastolic 51–64
--- NOTE | 2017-01-31 01:43 | NUR ---
SLEEPING, BIPAP ON, NO DISTRESS NOTED
--- NOTE | 2017-01-31 03:45 | NUR ---
SLEEPING, NO DISTRESS NOTED, BIPAP ON
[2017-01-31 06:15] LABS: BASOPHILS 0.2 % (0-2); EOSINOPHILS 0.2 % (0-7); HEMATOCRIT 35.9 % (36.0-48.0); HEMOGLOBIN 10.5 g/dL (12-16); IMMATURE GRANULOCYTES 0.6 % (0-5); LYMPHOCYTES 6.4 % (15-50); MCH 22.7 pg (26.0-34.0); MCHC 29.2 g/dL (31.0-37.0); MCV 77.5 fL (80.0-100.0); MEAN PLATELET VOLUME 10.9 fL (7.4-10.4); MONOCYTES 4.3 % (2-11); NEUTROPHILS 88.3 % (40-80); PLATELET COUNT 171 10x3/uL (130-400); RBC 4.63 10x6/uL (4.00-5.40); RDW 22.2 % (11.5-14.5); WBC 6.3 10x3/uL (4.8-10.8)
[2017-01-31 06:36] LABS: ALBUMIN 2.7 g/dL (3.4-5.0); ANION GAP 8.9 mmol/L (8-16); BILIRUBIN - TOTAL 0.38 mg/dL (0.2-1.3); CALCIUM 8.3 mg/dL (8.5-10.1); CARBON DIOXIDE 37.9 mmol/L (21.0-32.0); CREATININE - SERUM 1.1 mg/dL (0.6-1.3); MAGNESIUM - SERUM 2.2 mg/dL (1.8-2.4); POTASSIUM - SERUM 3.8 mmol/L (3.5-5.1); PROTEIN - SERUM 5.2 g/dL (6.4-8.2)
--- NOTE | 2017-01-31 07:43 | NUR ---
PT SEEN THIS AM. SWITCHED FROM BIPAP TO 5L NC. AMBULATED TO BR WITH WALKER AND MINIMAL ASSIST. SMEAR OF BM ON BED-STATES HAVING DIARRHEA AGAIN TODAY. ROBERT PRESENT. NO EDEMA NOTED. CALL LIGHT IN REACH.
--- NOTE | 2017-01-31 12:46 | NUR ---
REHAB PRESCREENING Rehab referral received and chart reviewed. Ms. Rust is a good candidate for ARU. I will begin her paper screen and submit for approvals. Once approved, she will be ready for admission to rehab when her physician feels she is appropriated for discharge. Thank you for this referral! Kristan Gamez DATA PROCESSING MECHANIC [facility]
--- NOTE | 2017-01-31 14:22 | NUR ---
NUTRITION F/U PT TOLERATING REG DIET, 75% INTAKE LUNCH TODAY. WILL PROVIDE DIET, HONOR FOOD PREFERENCES, MONITOR INTAKE. RD FOLLOWING
--- NOTE | 2017-01-31 19:45 | NUR ---
A&O, DENIES NEEDS, NO DISTRESS NOTED, HELP TO BATHROOM SOME COMPLAINTS OF DIARRHEA, REFUSED MIRALAX, CALL LIGHT IN REACH, BED LOWEST POSITION, WILL CONTINUE TO MONITOR
[2017-02-01] VITALS: BP 111/47
--- NOTE | 2017-02-01 03:00 | NUR ---
PT RESTING QUIETLY, EYES CLOSED. RESP EVEN, UNLABORED. NO DISTRESS NOTED. CONTINUE CENTRAL SUPPLY AIDE'S PLAN OF CARE.
[2017-02-01 04:00] VITALS: BP 114/50
[2017-02-01 06:22] LABS: BASOPHILS 0.5 % (0-2); EOSINOPHILS 0.4 % (0-7); HEMATOCRIT 36.2 % (36.0-48.0); HEMOGLOBIN 10.7 g/dL (12-16); IMMATURE GRANULOCYTES 1.1 % (0-5); LYMPHOCYTES 6.4 % (15-50); MCH 22.6 pg (26.0-34.0); MCHC 29.6 g/dL (31.0-37.0); MCV 76.5 fL (80.0-100.0); NEUTROPHILS 86.6 % (40-80); PLATELET COUNT 138 10x3/uL (130-400); RBC 4.73 10x6/uL (4.00-5.40); RDW 22.2 % (11.5-14.5); WBC 7.4 10x3/uL (4.8-10.8)
--- NOTE | 2017-02-01 06:33 | NUR ---
AWAKE WATCHING TV, DENIES NEEDS
[2017-02-01 06:52] LABS: ALBUMIN 2.6 g/dL (3.4-5.0); ANION GAP 10.9 mmol/L (8-16); BILIRUBIN - TOTAL 0.5 mg/dL (0.2-1.3); CALCIUM 8.3 mg/dL (8.5-10.1); CARBON DIOXIDE 36.2 mmol/L (21.0-32.0); POTASSIUM - SERUM 4.1 mmol/L (3.5-5.1)
[2017-02-01 08:11] VITALS: BP 124/63
--- NOTE | 2017-02-01 08:31 | NUR ---
PT SEEN AND ASSESSED. NO COMPLAINTS AT PRESENT. STATES HAD TO USE BIPAP DURING THE NIGHT. CURRENTLY ON 4L NC. EXP AND INSP WHEEZES NOTED. SITTING UP ON SIDE FOR BREAKFAST. ROBERT PRESENT. CALL LIGHT IN REACH
[2017-02-01] MEDS ORDERED: LOVENOX40 MG/0.4 SC (11:08)
[2017-02-01] MEDS ORDERED: ZOSYN 3.3753.375 G1 IV (11:08)
[2017-02-01] MEDS ORDERED: VANCOMYCIN 1 GM/1 G1 IV (11:08)
[2017-02-01] MEDS ORDERED: VIBRAMYCIN 100100 MG PO (11:08)
[2017-02-01] MEDS ORDERED: BROVANA15 MCG/2 M INH (11:08)
[2017-02-01] MEDS ORDERED: IPRAT-ALBUT 0.5-3 ML UPD (11:08)
[2017-02-01] MEDS ORDERED: SOLU-MEDRO40 MG/1 M1 IV (11:09)
[2017-02-01] MEDS ORDERED: BUMEX 1 MG/1 MG/4 ML IV (11:09)
[2017-02-01] MEDS ORDERED: BENZONATATE200 MG PO (11:09)
[2017-02-01 13:48] VITALS: BP 106/49; BP 94/48
[2017-02-01 16:03] VITALS: BP 90/51
--- NOTE | 2017-02-01 18:33 | NUR ---
LATE ENTRY 1130 CM WENT TO SPEAK WITH THE PATIENT REGARDING ACCEPTANCE TO REHAB. SHE WAS JITTERY & SHORT OF BREATH. STATING SHE DID NOT FEEL WELL ENOUGH TO GO TO REHAB. SHE STATED SHE HAD NO SPOKEN WITH ANYONE. SHE HAD NOT SEEN HER DOCTORS TODAY. ADAMANT SHE WOULD GO TO REHAB ON SATURDAY. ADVISED HER SHE WOULD PROBABLY FEEL BETTER. THE PULMONARY DOCTOR HAD ADJUSTED SOME OF HER MEDICATIONS. SHE HAD NASAL OXYGEN AT 5/L. SHE WAS RESTING IN BED. IMM EXPLAINED. SIGNATURE OBTAINED. PATIENT COPY WITH HER. LAYTON SPOKE WITH PHYSICAL THERAPY. LAYTON CALLED AND SPOKE WITH EDITH IN REHAB. PATIENT AMBULATED IN THE ROOM SHORT DISTANCE WITH PHYSICAL THERAPY. OOB TO CHAIR. THE REHAB SCREENER AND DIRECTOR OF MANUFACTURING OPERATIONS VISITED WITH THE PATIENT. SHE WOULD NOT GO TO REHAB TONIGHT.
[2017-02-01 20:00] VITALS: BP 71/51
--- NOTE | 2017-02-01 20:46 | NUR ---
PATIENT STATED "I DO NOT WANT TO GO TO REHAB."
[2017-02-02] VITALS: BP 96/49
[2017-02-02 04:00] VITALS: BP 120/62
--- NOTE | 2017-02-02 05:50 | NUR ---
ROBERT CARE COMPLETED USING ROBERT CARE WIPES. PATIENT DENIES NEEDS AT THIS TIME.
[2017-02-02 06:47] LABS: BASOPHILS 0 % (0-2); EOSINOPHILS 0 % (0-7); HEMOGLOBIN 10.5 g/dL (12-16); IMMATURE GRANULOCYTES 2.4 % (0-5); LYMPHOCYTES 4.8 % (15-50); MCH 22.5 pg (26.0-34.0); MCHC 29.2 g/dL (31.0-37.0); MCV 77.1 fL (80.0-100.0); MEAN PLATELET VOLUME 10.1 fL (7.4-10.4); MONOCYTES 3.8 % (2-11); PLATELET COUNT 266 10x3/uL (130-400); RBC 4.67 10x6/uL (4.00-5.40); RDW 22.3 % (11.5-14.5); WBC 7.1 10x3/uL (4.8-10.8)
[2017-02-02 07:04] LABS: ALBUMIN 2.5 g/dL (3.4-5.0); BILIRUBIN - TOTAL 0.4 mg/dL (0.2-1.3); CALCIUM 8.3 mg/dL (8.5-10.1); PROTEIN - SERUM 5.2 g/dL (6.4-8.2)
[2017-02-02 07:07] LABS: CREATININE - SERUM 1.5 mg/dL (0.6-1.3); POTASSIUM - SERUM 3.4 mmol/L (3.5-5.1)
[2017-02-02 07:10] LABS: CARBON DIOXIDE 40.4 mmol/L (21.0-32.0)
[2017-02-02 08:24] VITALS: BP 129/57
[2017-02-02 12:46] VITALS: BP 119/65
[2017-02-02 15:49] VITALS: BP 117/55
--- NOTE | 2017-02-02 19:22 | NUR ---
PATIENT IS IN THE BATHROOM, SHE HAS BEEN IN THE BATHROOM SINCE 1900. ASKED PATIENT IF SHE IS OKAY. SHE STATED "YES, I AM FINE. I WILL BE OUT IN A FEW MINUTES." REMINDED HER TO PULL THE STRING IN THE BATHROOM WHEN SHE IS FINISHED. SHE AGREED.
--- NOTE | 2017-02-02 19:30 | NUR ---
RESIDENT IN DIAGNOSTIC RADIOLOGY ASSISTED PATIENT OUT OF THE BATHROOM AND BACK TO BED.
[2017-02-02 21:25] VITALS: BP 107/54
--- NOTE | 2017-02-02 23:13 | NUR ---
PATIENT REQUESTED AMBIEN AND HER BIPAP. ADMINISTERED AMBIEN. RT IN ROOM PUTTING ON BIPAP.
[2017-02-03 00:27] VITALS: BP 119/57
[2017-02-03 05:31] LABS: BASOPHILS 0 % (0-2); EOSINOPHILS 0 % (0-7); HEMATOCRIT 35.1 % (36.0-48.0); HEMOGLOBIN 10.4 g/dL (12-16); LYMPHOCYTES 4.8 % (15-50); MCH 22.6 pg (26.0-34.0); MCHC 29.6 g/dL (31.0-37.0); MCV 76.1 fL (80.0-100.0); MEAN PLATELET VOLUME 10.5 fL (7.4-10.4); MONOCYTES 3.8 % (2-11); NEUTROPHILS 87.4 % (40-80); PLATELET COUNT 357 10x3/uL (130-400); RBC 4.61 10x6/uL (4.00-5.40); RDW 22.3 % (11.5-14.5); WBC 8.2 10x3/uL (4.8-10.8)
[2017-02-03 05:53] VITALS: BP 127/70
[2017-02-03 06:01] LABS: ALBUMIN 2.6 g/dL (3.4-5.0); ANION GAP 8.7 mmol/L (8-16); BILIRUBIN - TOTAL 0.31 mg/dL (0.2-1.3); CALCIUM 8.5 mg/dL (8.5-10.1); CREATININE - SERUM 1.3 mg/dL (0.6-1.3); POTASSIUM - SERUM 3.7 mmol/L (3.5-5.1); VANCOMYCIN - RANDOM 11.8 ug/mL (10.0-20.0)
--- NOTE | 2017-02-03 07:30 | NUR ---
RECIEVED PT DURING WALKING ROUNDS. PT RESTING IN BED WITH NO COMPLAINTS OF PAIN OR DISCOMFORT AT THIS TIME. ASSESSMENT DONE PER FLOWSHEET. BED IN LOW POSITION AND CALL LIGHT WITHIN REACH. WILL CONTINUE TO MONITOR.
[2017-02-03 07:44] VITALS: BP 129/67
[2017-02-03 12:25] VITALS: BP 114/53
[2017-02-03 16:09] VITALS: BP 111/62
--- NOTE | 2017-02-03 16:13 | NUR ---
JAKOB REMOVED PER VERBAL ORDER FROM .
[2017-02-03 20:25] VITALS: BP 99/42
--- NOTE | 2017-02-03 23:20 | NUR ---
ASSISTED PATIENT TO THE BATHROOM. SHE STATED "I WILL PULL THE STRING WHEN I AM FINISHED."
[2017-02-04 00:40] VITALS: BP 113/65
[2017-02-04 05:07] VITALS: BP 108/53
[2017-02-04 06:45] LABS: BASOPHILS 0.1 % (0-2); EOSINOPHILS 0 % (0-7); HEMATOCRIT 34.3 % (36.0-48.0); HEMOGLOBIN 10.1 g/dL (12-16); IMMATURE GRANULOCYTES 2.7 % (0-5); LYMPHOCYTES 3.2 % (15-50); MCH 22.6 pg (26.0-34.0); MCHC 29.4 g/dL (31.0-37.0); MCV 76.9 fL (80.0-100.0); MEAN PLATELET VOLUME 10.3 fL (7.4-10.4); MONOCYTES 3.7 % (2-11); NEUTROPHILS 90.3 % (40-80); PLATELET COUNT 396 10x3/uL (130-400); RBC 4.46 10x6/uL (4.00-5.40); RDW 22.2 % (11.5-14.5); WBC 10.3 10x3/uL (4.8-10.8)
[2017-02-04 06:53] LABS: ALBUMIN 2.6 g/dL (3.4-5.0); ANION GAP 6.1 mmol/L (8-16); BILIRUBIN - TOTAL 0.35 mg/dL (0.2-1.3); CALCIUM 8.1 mg/dL (8.5-10.1); CREATININE - SERUM 1.2 mg/dL (0.6-1.3); POTASSIUM - SERUM 3.6 mmol/L (3.5-5.1); PROTEIN - SERUM 4.8 g/dL (6.4-8.2)
[2017-02-04 06:55] LABS: CARBON DIOXIDE 42.5 mmol/L (21.0-32.0)
[2017-02-04 08:22] VITALS: BP 118/50
[2017-02-04 13:02] VITALS: BP 120/54
--- NOTE | 2017-02-04 13:30 | NUR ---
CALLED REPORT TO JESSICA. WILL INFUSE ANTIBIOTIC AND THEN TRANSFER.
--- NOTE | 2017-02-04 16:17 | NUR ---
PATIENT DECLINED TRANSFER TO ACUTE REHAB OVER THE WEEKEND. CM VISITED WITH HER THIS MORNING. SHE WAS OOB TO THE CHAIR. STATED SHE WAS FEELING MUCH BETTER. SHE WAS WILLING TO GO TO REHAB. SHE FELT SHE COULD PARTICIPATE WITH THE THERAPIES. DISCHARGE IMM OBTAINED. PATIENT UNDERSTOOD. SHE HAS SIGNED IMM'S PREVIOUSLY. NO QUESTIONS.PATIENT W/ COPY AND COPY TO THE CHART. PATIENT'S FAMILY MEMBER AT BEDSIDE. SHE WAS FOR DISCHARGE TO ACUTE REHAB THIS AFTERNOON. PATIENT WAS WITH [facility] PRIOR TO ADMISSION. SHE HAS HOME CPAP[facility]UES. P TO ADDRESS.
--- NOTE | 2017-02-06 12:12 | CN ---
PATIENT NAME:RIKKI RUST MEDICAL RECORD: [id number] : 37 LOCATION:[id number] ADMIT DATE: 01/27/17 ACCOUNT: [id number] CONSULTING PHYSICIAN: ROBERT SADLER MD REFERRING PHYSICIAN: SANJANA REGALADO DO DATE OF CONSULTATION: 01/27/2017 CONSULT REQUESTING PHYSICIAN: Sanjana Regalado DO REASON FOR CONSULTATION: Acute exacerbation of COPD, derpo-db-pchqcqa hypoxic hypercapnic respiratory failure, respiratory acidosis, status post fall. HISTORY OF PRESENT ILLNESS: Ms. Rust is an 81-year-old female, very well known to us. According to the patient, she is coughing for the last few days. The cough is productive with yellow-green color sputum production. Recently, she was seen in Dr. Wagner' office as well as Dr. Cabral's office on . According to the patient, she was coming down on the stair and she lost her balance and fell down. There was no loss of consciousness. There was no blackout. Denies any fever or chill. No night sweats. She does have shortness of breath with exertion. REVIEW OF THE SYSTEMS: As in history of present illness. PAST MEDICAL HISTORY: 1. COPD of severe degree. 2. Chronic hypoxic respiratory failure. 3. Obstructive sleep apnea. 4. History of recurrent pneumonia and bronchiectasis. 5. Coronary artery disease. 6. Cardiomyopathy with congestive heart failure with EF 15% to 20%. 7. Hypertension. 8. History of atrial fibrillation. PAST SURGICAL HISTORY: 1. Hysterectomy. 2. Appendectomy. 3. Cardiac catheterization and multiple stent placement. 4. Varicose vein surgery. 5. Shoulder surgery. 6. Wrist surgery. ALLERGIES: SHE IS ALLERGIC TO SULFA, AVELOX, AND DEPLIN. PRESENT MEDICATIONS: [employer] is reviewed. PERSONAL AND SOCIAL HISTORY: The patient is an ex-smoker. She is nondrinker. She is a . FAMILY HISTORY: Not known. PHYSICAL EXAMINATION: GENERAL: Now, the patient is lying comfortably in bed. She is not in acute distress, but she is on BiPAP. VITAL SIGNS: The blood pressure is 108/61, pulse is 63, respirations are 19, temperature 97.9, and SPO2 is 97% on BiPAP with 40% oxygen. CONSULT REPORT [id number] RIKKI RUST HEENT: Conjunctivae are pink. Sclerae nonicteric. NECK: Neck is supple. No JVD. CHEST: There are crackles at the right base and wheezes on forceful expiration. HEART: Rhythm regular. Normal sounds. No murmur. ABDOMEN: Abdomen is soft. Bowel sounds present. No hepatosplenomegaly. RECTAL: Deferred. CENTRAL NERVOUS SYSTEM: The patient is awake and alert. There are no obvious cranial nerve abnormalities. SKIN: There are bruises on the left side of her forehead and cheek. CHEST RADIOGRAPH: There is infiltrate in right lower lobe. There is increased interstitial marking. LABORATORY DATA: CBC; WBC 19.3, hemoglobin 10.8, hematocrit 36.9, and platelet count is 137. Chemistries; sodium 140, potassium 4.2, BUN is 34, and creatinine 1.2. AST is 225, ALT is 259, and alkaline phosphatase is 119. Troponin is 0.052. Albumin is 3.1. ABG; the pH is 7.21, pCO2 is 80.1, pO2 is 95, and bicarb is 32.4. IMPRESSION: 1. Acute exacerbation of COPD. 2. Ihvph-ll-lbutoxi hypoxic hypercapnic respiratory failure. 3. Respiratory acidosis secondary to #2. 4. Leukocytosis secondary to pneumonia. 5. Pneumonia, right lower lobe, most likely hospital-acquired pneumonia with recent hospitalization. 6. Status post fall. There is no syncope. Possible imbalance due to high CO2. 7. Elevated liver enzymes. 8. CHF with systolic dysfunction with EF of 15% to 20%. RECOMMENDATION: 1. BiPAP titrated to the patient's comfort as required. 2. Check the ammonia level. Check the TSH. 3. Start on Brovana and budesonide nebulizer. Start on albuterol/ipratropium nebulizer. 4. Methylprednisolone IV. 5. Continue Zosyn. I will discontinue Zithromax and add doxycycline. 6. Followup labs and chest radiograph. Discussed with the patient's family in length. Critical care time [address] Regalado, thank you for involving me in the care of Ms. Rust. TRANSINT:[id number] Voice Confirmation ID: [id number] DOCUMENT ID: [id number] ROBERT SADLER MD at 1212 CC: SANJANA REGALADO DO [id number] DICTATION DATE: 01/27/[address] [place] APPEALS JUDGE: 01/27/17 1503 DIS IN 02/04/17 [place] [address] [place] [address]
== END 2017-02-04 14:41 | DRG 193 ==
LOC: D.ER 08:50 → D.ICU 11:45 → D.MS 01-28 22:39
PROVIDERS: Emergency Medicine; Internal Medicine Pulmonary Disease; ADMIT Family Medicine
PROC: 0T9B70Z Drainage of Bladder with Drainage Device, Via Natural or Artificial Opening (ICD-10-PCS; principal; 2017-01-27)
PROC: 5A09357 Assistance with Respiratory Ventilation, Less than 24 Consecutive Hours, Continuous Positive Airway Pressure (ICD-10-PCS; 2017-01-27)
DX: J18.9 Pneumonia, unspecified organism (principal); J96.22 Acute and chronic respiratory failure with hypercapnia; J96.21 Acute and chronic respiratory failure with hypoxia; J98.11 Atelectasis; I50.22 Chronic systolic (congestive) heart failure; J44.1 Chronic obstructive pulmonary disease with (acute) exacerbation; J44.0 Chronic obstructive pulmonary disease with (acute) lower respiratory infection; E87.2 Acidosis; I42.9 Cardiomyopathy, unspecified; G47.33 Obstructive sleep apnea (adult) (pediatric); I11.0 Hypertensive heart disease with heart failure; I25.10 Atherosclerotic heart disease of native coronary artery without angina pectoris; G62.9 Polyneuropathy, unspecified; I95.9 Hypotension, unspecified; R74.8 Abnormal levels of other serum enzymes; F32.9 Major depressive disorder, single episode, unspecified; F41.9 Anxiety disorder, unspecified; I27.20 Pulmonary hypertension, unspecified; E78.5 Hyperlipidemia, unspecified; S00.83XA Contusion of other part of head, initial encounter; W19.XXXA Unspecified fall, initial encounter; Z95.0 Presence of cardiac pacemaker; Z95.5 Presence of coronary angioplasty implant and graft; Z87.891 Personal history of nicotine dependence; J84.10 Pulmonary fibrosis, unspecified

== ENCOUNTER 2017-02-01 16:44 | Inpatient (IN) | payer MEDICARE ==
[~2017-02-01] VITALS: Ht 160 cm; Wt 79.4 kg
[~2017-02-01 16:44] MED LIST changes: +BUMEX 1 MG/1 MG/4 ML IV; +CELEXA10 MG PO; +LOVENOX40 MG/0.4 SC; +VANCOMYCIN 1 GM/1 G1 IV; +ZOSYN 3.3753.375 G1 IV
--- NOTE | 2017-02-04 14:50 | NUR ---
RECIEVED/WC TO ROOM 1113B/WC.CL IN REACH.ORIENTED TO ROOM AND SURROUNDINGS.
[2017-02-04 19:30] VITALS: BP 93/53
[2017-02-04 20:06] VITALS: BP 114/51; BMI 31.0
--- NOTE | 2017-02-04 21:30 | NUR ---
PT SITTING IN WHEELCHAIR. O2 @ 5L NC. CALL LIGHT AND BEDSIDE TABLE IN REACH. NO NEEDS AT THIS TIME.
--- NOTE | 2017-02-04 23:00 | NUR ---
PT SLEEPING. O2 @ 5L BIPAP. NO SIGNS OF DISTRESS. BED IN LOWEST POSITION. CALL LIGHT IN REACH. BED SIDE TABLE IN REACH.
--- NOTE | 2017-02-05 03:07 | NUR ---
RESTING IN BED WITH EYES CLOSED.
[2017-02-05 07:51] LABS: BASOPHILS 0.1 % (0-2); EOSINOPHILS 0.1 % (0-7); HEMOGLOBIN 10.9 g/dL (12-16); IMMATURE GRANULOCYTES 2.1 % (0-5); LYMPHOCYTES 2.7 % (15-50); MCH 22.3 pg (26.0-34.0); MCHC 28.7 g/dL (31.0-37.0); MCV 77.7 fL (80.0-100.0); MEAN PLATELET VOLUME 10.4 fL (7.4-10.4); MONOCYTES 2.9 % (2-11); NEUTROPHILS 92.1 % (40-80); RBC 4.89 10x6/uL (4.00-5.40); RDW 22.6 % (11.5-14.5)
[2017-02-05 07:56] LABS: PLATELET COUNT 525 10x3/uL (130-400); WBC 17.7 10x3/uL (4.8-10.8)
--- NOTE | 2017-02-05 08:02 | NUR ---
SITTING UP ON SIDE OF BED EATING BREAKFAST NO S/SX OF RESPIRATORY DISTRESS. ALERT AND ORIENTED X4. DENIES ANY NEEDS OR PAIN. CALL LIGHT WITHIN REACH, BED IN LOWEST POSITION. WILL CONTINUE TO MONITOR
[2017-02-05 08:10] LABS: ANION GAP 8.3 mmol/L (8-16); CALCIUM 8.5 mg/dL (8.5-10.1); CREATININE - SERUM 1.4 mg/dL (0.6-1.3); POTASSIUM - SERUM 4.2 mmol/L (3.5-5.1)
[2017-02-05 08:11] LABS: CARBON DIOXIDE 40.9 mmol/L (21.0-32.0)
[2017-02-05 08:53] VITALS: BP 135/55
--- NOTE | 2017-02-05 10:47 | NUR ---
CALLED PHARMACY INFORMED IN NEED OF DOXYCYCLINE. WILL ADMINISTER WHEN ARRIVES ON FLOOR.
--- NOTE | 2017-02-05 10:51 | NUR ---
IN THERAPY GYM WITH PHYSICAL THERAPY. NO S/SX OF RESPIRATORY DISTRESS. WILL CONTINUE TO MONITOR
--- NOTE | 2017-02-05 11:50 | NUR ---
SITTING UP IN WC FOR LUNCH.CL IN REACH.
[2017-02-05 13:00] VITALS: Ht 160 cm; Wt 79.4 kg
--- NOTE | 2017-02-05 15:09 | NUR ---
PATIENT ADMITTED TO REHAB FROM ACUTE FLOOR. DR. AUSTIN IS HER PCP AND SHE IS A CLIENT OF [facility]. [facility] [address] IS HER PHARMACY. DME AT HOME: WALKER, SHOWER CHAIR, O2, NEBULIZER AND PORTABLE O2. PATIENT PLANS ON RETURNING HOME WITH HER DAUGHTER AT DISCHARGE. WILL CONTINUE TO FOLLOW WITH PATIENT .
--- NOTE | 2017-02-05 15:27 | NUR ---
SITTING UP IN W/C WATCHING TV. DENIES ANY NEEDS. CALL LIGHT AND PERSONAL BELONGINGS WITHIN REACH, CONTINUES ON O2 AT 4L VIA NC. WILL CONTINUE TO MONITOR
--- NOTE | 2017-02-05 19:30 | NUR ---
IN BED, AWAKE. SHIFT HANDOFF COMPLETE. DENIES CURRENT NEEDS.
--- NOTE | 2017-02-05 20:35 | NUR ---
ASSESSMENT AND HS MEDS COMPLETE. GAVE PATIENT NORCO 5/325 X1 TAB PO FOR PAIN LEVEL OF 7/10 IN HER UPPER BACK. ASSISTED HER TO AMBULATE TO BR.
[2017-02-05 21:37] VITALS: BP 126/57
--- NOTE | 2017-02-05 22:50 | NUR ---
CONTINUES IN BED, AWAKE. DENIES CURRENT NEEDS.
--- NOTE | 2017-02-06 | NUR ---
IN BED, AWAKE. REQUESTED "PAIN PILL" BACK PAIN HAS RETURNED. TOLD HER I COULD NOT GIVE IT UNTIL 0035 HRS, BUT THAT I WOULD GO ASSESS ANOTHER PATIENT, AND BY THAT TIME I COULD GIVE HER NORCO FOR HER PAIN AND HER SLEEPIN PILL WELL DELIVER HER SCHEDULED SOLU-MEDROL IVP. PATIENT THOUGHT THIS A GOOD IDEA.
--- NOTE | 2017-02-06 01:00 | NUR ---
GAVE PATIENT NORCO 5/325 X1 TAB PO FOR PAIN LEVEL OF 8/10 IN UPPER BACK, WELL AMBIEN 5MG PO FOR SLEEP, PER HER REQUEST. DELIVERED HER IV SOLU-MEDROL SLOW IVP VIA LEFT FA S/L AND FLUSHED HER SALINE LOCK. REMOVED HER NASAL CANNULA AND PLACED PATIENT ON BIPAP PER FACE MASK WITH 4 L O2 FLOW. INITIATED BIPAP THERAPY.
--- NOTE | 2017-02-06 02:00 | NUR ---
CONTINUES IN BED, WITH BIPAP MASK IN PLACE AND BIPAP FUNCTIONING.
--- NOTE | 2017-02-06 04:15 | NUR ---
RESTING QUIETLY IN BED, EYES CLOSED. CONTINUES ON BIPAP WITH FACEMASK IN PLACE.
--- NOTE | 2017-02-06 06:30 | NUR ---
ASSISTED PATIENT UP TO COMMODE WITH CONTACT GUARD ASSIST FOR AMBULATION. GAVE HER NORCO 07/3251 X1 TAB PO FOR PAIN LEVEL OF 6/10 IN UPPER BACK ON RETURN TO BED.
[2017-02-06 08:00] VITALS: BP 127/57
--- NOTE | 2017-02-06 08:00 | NUR ---
PATIENT IS ALERT/ORIENT X4. JESSE BED ALARM ON. PATIENT USING CALL LIGHT FOR NEEDS. CALL LIGHT WITHIN REACH
--- NOTE | 2017-02-06 08:00 | NUR ---
SITTING UP IN WC EATING BREAKFAST.
--- NOTE | 2017-02-06 11:00 | NUR ---
PRN PAIN MEDICATION GIVEN PER PATIENT REQUEST FOR BACK PAIN
--- NOTE | 2017-02-06 14:20 | NUR ---
PATIENT IN REHAB ROOM. WORKING WITH PHYSICAL THERAPIST. DENIES ANY PAIN/DISC AT THIS TIME
--- NOTE | 2017-02-06 15:37 | NUR ---
PATIENT HELPED INTO BATHROOM. STAND BY ASST WITH WHEELED WALKER.
--- NOTE | 2017-02-06 16:23 | NUR ---
PRN PAIN MEDICTION GIVEN FOR BACK PAIN PER PATIENT REQUEST
--- NOTE | 2017-02-06 16:50 | NUR ---
CARE TEAM MEETING: PATIENT WILL BE RA AT NEXT MEETING[facility] WILL CONTINUE TO FOLLOW WITH PATIENT.
--- NOTE | 2017-02-06 19:25 | NUR ---
PT. IN BED WITH HOB UP FOR COMFORT WITH O2 ON AT 4L/MIN VIA N/C. PT. VISITING WITH HER 2 DAUGHTERS. ASSESSMENT COMPLETED. ASSISTED TO/FROM BR AND REPOSITIONED IN BED FOR COMFORT. PT. GETS VERY SOB WITH ANY EXERTION. PT. DOESN'T WANT HER SCD'S ON TONIGHT THEY HURT HER LEGS. CALL LIGHT WITHIN REACH.
[2017-02-06 20:15] VITALS: BP 135/67
--- NOTE | 2017-02-06 23:08 | NUR ---
PT. IN BED WITH HOB UP FOR COMFORT AND IS WATCHING TV. NO VOICED NEEDS AND HAS HER CALL LIGHT WITHIN REACH. WAITING FOR RT TO COME AND PUT ON HER BI-PAP EQUIPMENT FOR THE NIGHT.
--- NOTE | 2017-02-07 03:10 | NUR ---
PT. IN BED WITH HOB UP FOR COMFORT. BI-PAP EQUIPMENT IN PLACE. EYES CLOSED AND RESP. EVEN. CALL LIGHT REMAINS WITHIN REACH.
[2017-02-07 08:44] VITALS: BP 119/60
--- NOTE | 2017-02-07 09:05 | NUR ---
LAYING DOWN IN BED. SOB WITH MINIMAL EXERTION. OXYGEN IN PLACE. C/O PAIN TO BACK AND LEFT SIDE. PAIN MEDS GIVEN ORDERED.
--- NOTE | 2017-02-07 12:19 | NUR ---
SITTING UP IN W/C AT BEDSIDE FOR LUNCH. PAIN MEDS GIVEN DIRECTED. STILL HAS C/O PAIN TO LEFT SIDE AND BACK DUE TO FALL.
--- NOTE | 2017-02-07 19:15 | NUR ---
RESTING IN CHAIR WITH FAMILY IN ROOM NO S/S OF DISTRESS NOTED AT THIS TIME
[2017-02-07 20:40] VITALS: BP 136/77
--- NOTE | 2017-02-07 20:41 | NUR ---
TRIN HYDROCOCONE 2039 LPO @ .
--- NOTE | 2017-02-07 21:00 | NUR ---
resting in bed watching tv. stated lop @ 2.
--- NOTE | 2017-02-07 22:15 | NUR ---
resting in bed with eyes open no c/o pain or discomfort at this time.
--- NOTE | 2017-02-08 00:30 | NUR ---
GAVE PATIENT SOLU-MEDROL 40MG SLOW IVP, THEN FLUSHED LEFT FOREARM S/L. PATIENT HAS BEEN ON BIPAP FOR ABOUT AND HOUR.
--- NOTE | 2017-02-08 03:35 | NUR ---
RESTING IN BED EYES CLLOSED NO S/S OF DISTRESS NOTED.
[2017-02-08 05:49] LABS: BASOPHILS 0.1 % (0-2); EOSINOPHILS 0 % (0-7); HEMOGLOBIN 9.8 g/dL (12-16); LYMPHOCYTES 3.3 % (15-50); MCH 22.8 pg (26.0-34.0); MCHC 29.7 g/dL (31.0-37.0); MCV 76.9 fL (80.0-100.0); MEAN PLATELET VOLUME 10.3 fL (7.4-10.4); MONOCYTES 3.3 % (2-11); NEUTROPHILS 91.3 % (40-80); PLATELET COUNT 488 10x3/uL (130-400); RBC 4.29 10x6/uL (4.00-5.40); RDW 22.6 % (11.5-14.5); WBC 18.8 10x3/uL (4.8-10.8)
[2017-02-08 06:12] LABS: ANION GAP 7.7 mmol/L (8-16); CALCIUM 8.6 mg/dL (8.5-10.1); CREATININE - SERUM 1.3 mg/dL (0.6-1.3); POTASSIUM - SERUM 4.7 mmol/L (3.5-5.1)
--- NOTE | 2017-02-08 07:15 | NUR ---
PRN NORCO 5/325 GIVEN PER ORDERS.[id number]
--- NOTE | 2017-02-08 08:00 | NUR ---
PT RESTING IN BED WITH EYES OPEN CALL LIGHT IN REACH WILL MONITER
[2017-02-08 08:40] VITALS: BP 131/60
--- NOTE | 2017-02-08 15:28 | NUR ---
PT RESTING IN BED WITH EYES OPEN CALL LIGHT IN REACH WILL MONITER
--- NOTE | 2017-02-08 16:37 | NUR ---
PT RESTING IN ROOM, DENIES NEEDS.
--- NOTE | 2017-02-08 19:25 | NUR ---
PATIENT IN BED, AWAKE. O2 PER N/C @ 4L FLOW. DENIES CURRENT NEEDS. DELIVERED HER MENU TO COMPLETE.
--- NOTE | 2017-02-08 20:00 | NUR ---
PT IN BED WITH HOB UP FOR COMFORT. WATCHING TV. O2 @ 4L VIA NC. LEFT FOREARM SL. BIPAP @ NIGHT. STAND BY ASSIST. PT AMBULATES WITH ROLLING WALKER. ALERT & ORIENTED. BED ALARM ON. BED IN LOWEST POSITION AND CALL LIGHT WITHIN REACH.
[2017-02-08 20:53] VITALS: BP 114/60
--- NOTE | 2017-02-09 | NUR ---
PT IN BED WITH HOB UP FOR COMFORT. EYES CLOSED. CHEST RISING AND FALLING. BIPAP ON. BED IN LOWEST PSOITION AND CALL LIGHT WITHIN REACH.
--- NOTE | 2017-02-09 04:00 | NUR ---
PT LYING IN BED WITH HOB UP FOR COMFORT. EYES CLOSED. RESPIRATIONS EVEN AND UNLABORED. BED IN LOWEST POSITION AND CALL LIGHT WITHIN REACH.
--- NOTE | 2017-02-09 07:28 | NUR ---
LYING IN BED ON RIGHT SIDE EYES CLOSED RESTING. APPROPRIATE RISE AND FALL OF CHEST. NO S/SX OF RESPIRATORY DISTRESS. CONTINUES ON 5L OF O2. CALL LIGHT AND PERSONAL ITEMS WITHIN REACH, BED LOW AND ALARM ON, SR X2. WILL CONTINUE TO MONITOR
--- NOTE | 2017-02-09 10:24 | NUR ---
IN THERAPY GYM WITH PHYSICAL THERAPY. NO S/SX OF RESPIRATORY DISTRESS. WILL CONTINUE TO MONITOR
[2017-02-09 10:26] VITALS: BP 170/99
--- NOTE | 2017-02-09 12:30 | NUR ---
SITTING UP IN W/C WITH LEGS PROPPED UP EATING LUNCH. DENIES ANY NEEDS. C/O PAIN IN BACK AND SHOULDERS 10/01. ADMINISTERED PAIN MEDICATIONS PER PT REQUEST. WILL CONTINUE TO MONITOR
--- NOTE | 2017-02-09 13:54 | NUR ---
SITTING UP IN WC.CL IN REACH.
--- NOTE | 2017-02-09 16:38 | NUR ---
SITTING UP IN BED VISITING WITH FAMILY. NO S/SX OF RESPIRATORY DISTRESS. CALL LIGHT AND PERSONAL ITEMS WITHIN REACH, BED LOW AND ALARM ON. WILL CONTINUE TO MONITOR
--- NOTE | 2017-02-09 18:52 | NUR ---
SITTING UP IN BED VISITING WITH FAMILY. DENIES ANY NEEDS. WILL CONTINUE TO MONITOR
--- NOTE | 2017-02-09 20:05 | NUR ---
REST IN BED AND WATCH TV.
--- NOTE | 2017-02-09 22:36 | NUR ---
PT. IN BED WITH HOB AND FOB ELEVATED FOR COMFORT. PT. WATCHING TV AND HAS HER O2 ON WITHOUT ANY S/S DISTRESS. CALL LIGHT WITHIN REACH.
--- NOTE | 2017-02-09 23:20 | NUR ---
RESP STAFF GIVEN TREATMENT AND PUT ON BIPAP FOR PT.
[2017-02-10 01:18] VITALS: BP 133/53
--- NOTE | 2017-02-10 04:31 | NUR ---
REST IN BED, EYE CLOSE, BED LOW, CALL LIGHT IN REACH.
--- NOTE | 2017-02-10 08:00 | NUR ---
PATIENT IS ALERT/ORIENT X4. BED ALARM ON WHEN PATIENT IN BED. USING CALL LIGHT FOR NEEDS. CALL LIGHT WITHIN REACH.
[2017-02-10 09:04] VITALS: BP 128/83
--- NOTE | 2017-02-10 15:18 | NUR ---
PATIENT HELPED INTO BATHROOM. STAND BY ASST WITH WHEELED WALKER.
--- NOTE | 2017-02-10 18:25 | NUR ---
PATIENT HAS FAMILY IN ROOM VISITING. VOICES NO NEEDS AT THIS TIME.
--- NOTE | 2017-02-10 20:05 | NUR ---
PT. IN BED WITH HOB AND FOB UP FOR COMFORT AND IS WATCHING TV. O2 ON VIA N/C WITHOUT ANY S/S DISTRESS. CALL LIGHT WITHIN REACH FOR ANY NEEDS.
--- NOTE | 2017-02-10 22:45 | NUR ---
RECHECK PT SPO2 IS 93%.
--- NOTE | 2017-02-10 22:45 | NUR ---
RESP STAFF PUT ON CPAP FOR PT.
--- NOTE | 2017-02-10 22:50 | NUR ---
ASSISTED PT TO BATHROOM.
[2017-02-10 23:13] VITALS: BP 110/63
--- NOTE | 2017-02-11 00:45 | NUR ---
REST QUIETLY IN BED,CALL LIGHT IN REACH.
[2017-02-11 06:05] LABS: BASOPHILS 0.1 % (0-2); EOSINOPHILS 0 % (0-7); HEMATOCRIT 32.9 % (36.0-48.0); HEMOGLOBIN 9.4 g/dL (12-16); IMMATURE GRANULOCYTES 4.2 % (0-5); LYMPHOCYTES 2.9 % (15-50); MCH 22.5 pg (26.0-34.0); MCHC 28.6 g/dL (31.0-37.0); MCV 78.7 fL (80.0-100.0); MEAN PLATELET VOLUME 10.5 fL (7.4-10.4); MONOCYTES 4.3 % (2-11); NEUTROPHILS 88.5 % (40-80); PLATELET COUNT 411 10x3/uL (130-400); RBC 4.18 10x6/uL (4.00-5.40); RDW 22.3 % (11.5-14.5); WBC 17.2 10x3/uL (4.8-10.8)
[2017-02-11 06:17] LABS: CALCIUM 8.6 mg/dL (8.5-10.1); CREATININE - SERUM 1.2 mg/dL (0.6-1.3); POTASSIUM - SERUM 4.4 mmol/L (3.5-5.1)
[2017-02-11 06:21] LABS: ANION GAP 8.4 mmol/L (8-16)
--- NOTE | 2017-02-11 08:15 | NUR ---
PT AM MEDS ADMINISTERED. PT DENIES NEEDS. WCTM.
[2017-02-11 09:22] VITALS: BP 128/56
--- NOTE | 2017-02-11 12:07 | RHP ---
PATIENT: RIKKI LUCERO MEDICAL RECORD: [id number] ACCOUNT: [id number] LOCATION:[facility].1113 : 36 ADMISSION DATE: 02/04/17 REHABILITATION HISTORY AND PHYSICAL EXAMINATION POST ADMISSION PHYSICIAN EXAMINATION POST-ADMISSION PHYSICAL EXAMINATION AND HISTORY AND PHYSICAL DATE OF ADMISSION: 02/04/2017 ADMITTING DIAGNOSIS: COPD-induced myopathy. HISTORY OF PRESENT ILLNESS: The patient is a very friendly 81-year-old female patient, we have had in the rehab before here, presenting secondary to COPD myopathy. She presented to the Emergency Room after falling at home the night prior before her admit on 01/27. She states she was getting up to go to the bathroom, was trying to reach for a handhold and missed it and fell. She did struck her face. She did get a contusion to the left side of her face. Chest x-rays showed some kfrt-yg-mgekpahf congestive heart failure changes and right lower lobe atelectasis. She is unsure how long she laid on the floor. She has a history of recurrent COPD and is frequently hospitalized due to her hypotension and hypoxia with hypercarbia. She was admitted to the ICU. Her initial CO2 was 80. She is improved and now out to the medical floor. She has been followed by pulmonary throughout this with eompg-ck-mseccxk hypoxic hypercapnic respiratory failure, respiratory acidosis. She is currently requiring 5 liters via nasal canula. She does have a history of pulmonary fibrosis and is on 4 liters normally at home. She has been on CPAP at home and has been noncompliant with it at times. She has been compliant with BiPAP here during her hospital stay and agrees to continue when discharged home. She currently requires some Solu-Medrol 60 mg IV every 12 hours. She is on Zosyn 3.375 g every 8 hours and vancomycin 1 g every 12 hours. She is noted to be very weak and short of breath. She has dyspnea on exertion. She has been evaluated by speech therapy and found to be a high risk for aspiration. She lives alone with her daughter living next door. She was independent with ADLs and mobility prior to this incident. Currently setup for max assist for ADLs and moderate assist to total assist for mobility. She would like to return home and once again she does have strong care support from her daughter, who lives next door. Comorbidities in this patient include COPD, small bilateral pulmonary effusions, hypotension, pneumonia, congestive heart failure, hypoxia, leukocytosis, pacemaker placement, chronic obstructive sleep apnea, atrial fibrillation, mftgl-dz-lqqcjny respiratory failure, cardiomegaly, right lower lobe hospital-acquired pneumonia, obstructive sleep apnea, hypertension, electrolyte abnormalities, debility, fall with facial contusion. PAST MEDICAL HISTORY: Significant for neuropathy, hypertension, CHF, coronary artery disease, obstructive sleep apnea, chronic O2 dependence, depression, anxiety, cardiomyopathy, and history of atrial fib. PAST SURGICAL HISTORY: Includes appendectomy, hysterectomy, previous PTCA, varicose vein surgery, shoulder surgery, and wrist surgery. ALLERGIES: AVELOX, SULFA DRUGS, AND DEPLIN. CURRENT MEDICATIONS: Include Lovenox 40 mg subcutaneous daily, spironolactone 25 mg daily, Protonix 40 mg daily, isosorbide 30 mg daily, citalopram 10 mg HISTORY AND PHYSICAL [id number] RIKKI LUCERO daily, aspirin chewable 81 mg daily, amiodarone 200 mg daily, Zosyn 3.375 g IV every 8 hours, vancomycin 1 g every 12 hours, Critz 5/325 one every 4 hours p.r.n. back pain, DuoNeb updrafts, zolpidem 5 mg at bedtime p.r.n., Senokot 1 tab b.i.d., potassium chloride liquid 10 mEq b.i.d., MiraLax 17 g in 8 ounces of water daily, Singulair 10 mg at bedtime. She is on Solu-Medrol 60 mg IV every 8 hours, Mag-Ox 400 mg b.i.d., Ativan 0.5 mg b.i.d. p.r.n., Mucinex D 1 tab b.i.d., Neurontin 300 at bedtime, doxycycline 100 mg b.i.d., carvedilol 3.125 mg b.i.d. with meals, Bumex 2 mg IV every 12 hours, Pulmicort 0.5 mg b.i.d., Tessalon Perles 200 mg t.i.d. p.r.n., atorvastatin 10 mg at bedtime, and Brovana 15 mcg b.i.d. HABITS: No current alcohol or tobacco use. FAMILY HISTORY: Noncontributory. SOCIAL HISTORY: The patient hopes to return home and get back to her prior level of functioning. Once again, her daughter lives next door. REVIEW OF SYSTEMS: GENERAL: Does complain of weakness and fatigue. HEENT: Denies cold, cough, or congestion. CARDIOVASCULAR: Denies any chest pain. LUNGS: Does complain of shortness of breath even with mild activity. PHYSICAL EXAMINATION: VITAL SIGNS: Stable. She is afebrile. GENERAL: Well-developed female, in no acute distress upon exam. HEENT: Normocephalic and atraumatic. Mucosa moist. NECK: Supple. No lymphadenopathy. LUNGS: Clear in upper perez. HEART: Has an irregular rate and rhythm. ABDOMEN: Benign. EXTREMITIES: No clubbing, cyanosis or edema. NEUROLOGIC: Intact. LABORATORY DATA: Her white count is 17.7, H&H of 11 and 38, and platelet count was noted to be 525. Her admit chemistries are pending at this time. ASSESSMENT: This is an 81-year-old female patient admitted to rehab with a working diagnosis of chronic obstructive pulmonary disease induced myopathy. The patient has potential to make improvement. We will institute the following multidisciplinary therapies including, but not limited to physical, occupational, respiratory, speech, nutritional services, prosthetics and orthotics. Given her complex condition and risk for more complications, rehabilitation services cannot be provided at a low level of care such as a long-term facility. PLAN: 1. Admit to [facility] rehab for intensive inpatient therapy to include the following disciplines: A. Physical therapy to improve gait, all transfer skills and bed mobility to a modified independent level. B. Occupational therapy to improve activities of daily living to a modified independent level. C. Case management to assist with discharge planning and placement options. HISTORY AND PHYSICAL [id number] RIKKI LUCERO Nutrition to assist with nutritional needs. E. Rehabilitation nursing to assist in monitoring the patient's underlying medical conditions and to assist with any type of bowel or bladder management. 2. The patient's current medication and medical care will be continued. 3. The patient will be placed on standard fall precautions. 4. I will adjust her Solu-Medrol during her stay here. 5. We will continue on antibiotics for a full treatment course. 6. Discuss this patient during care team staff meeting this week. TRANSINT:[id number] Voice Confirmation ID: [id number] DOCUMENT ID: [id number] MONICA notes whether there has been none or any medical/functional change since admission: - No change since preadmission screen. MONICA attests patient continues to be appropriate for IRF: - Continues to be appropirate. AMANDA CORRIGAN MD at 1207 CC: [id number] DICTATION DATE: 02/05/17 0809 LOGISTICS MANAGER: 02/05/17 1002 ADM IN [address] [id number] [place] [address]
--- NOTE | 2017-02-11 12:15 | NUR ---
PT EATING LUNCH, DENIES NEEDS. WCTM.
--- NOTE | 2017-02-11 18:23 | NUR ---
PT RESTING IN ROOM, DENIES NEEDS. WCTM.
--- NOTE | 2017-02-11 19:20 | NUR ---
PM ROUNDS MADE, PT UP IN BR AT THIS TIME, FAMILY IN ROOM
--- NOTE | 2017-02-11 20:15 | NUR ---
PT WATCHING TV, FRESH H20 SERVED, INFORMED PT THAT I WILL BE BACK SHORTLY TO DO ASSESSMENT AND ADM 2100 MEDS, PT VERBALIZES UNDERSTANDING, DENIES NEEDS AT THIS TIME, BED IN LOW POSITION, SIDE RAILS X 3, CALL LIGHT IN REACH, BED ALARM ON AND WORKING PROPERLY
--- NOTE | 2017-02-11 20:46 | NUR ---
RESP IN ROOM FOR TREATMENT
--- NOTE | 2017-02-11 21:07 | NUR ---
ASSESSMENT PER FLOW SHEET, PT REPORTS FLATUS, BM TODAY AND VOIDING WITH NO DIFFICULTY, PT REFUSES SENOKOT AND MIRILAX, ADM 2100 MEDS PO PER MD ORDERS, PT INQUIRES ABOUT PAIN MED, INFORMED PT THAT THE STRENGTH OF THE PAIN MED WAS CHANGED AND THAT I WILL ADM PAIN MED WHEN DUE, PT VERBALIZES UNDERSTANDING, PT STATES "IF I'M ASLEEP, DON'T WAKE ME UP", INFORMED PT THAT I WILL NOT WAKE HER UP AND FOR HER TO USE THE CALL LIGHT IF SHE WAKES UP AROUND 1AM, PT VERBALIZES UNDERSTANDING, DENIES NEEDS AT THIS TIME, BED IN LOW POSITION, SIDE RAILS X 2, CALL LIGHT IN REACH, BED ALARM ON AND WORKING PROPERLY
--- NOTE | 2017-02-11 22:25 | NUR ---
PT AWAKE, USING FLUTTER VALVE AT THIS TIME, PT DENIES NEEDS AT THIS TIME
[2017-02-11 22:57] VITALS: BP 129/59
--- NOTE | 2017-02-11 23:00 | NUR ---
PT ELECTRICAL APPLIANCE PREPARER LIGHT, PT UP TO BR VIA WALKER, PT TO COMMODE, PT INST TO USE CALL LIGHT WHEN FINISHED, PT VERBALIZES UNDERSTANDING
--- NOTE | 2017-02-11 23:09 | NUR ---
PT BACK IN BED, PT REPORTS THAT "MOISE" HELPED HER BACK TO BED, I INFORMED PT THAT I GOT ANOTHER CALL LIGHT IN THE MEANTIME AND APOLOGIZED FOR NOT ANSWERING HERS RIGHT AWAY, PT STATES "THAT'S OK, I COMPLETELY UNDERSTAND", ADM NICK PO PER MD ORDERS, SEE EMAR, PT DENIES FURTHER NEEDS, BED IN LOW POSITION, SIDE RAILS X 2, CALL LIGHT IN REACH, BED ALARM ON AND WORKING PROPERLY
--- NOTE | 2017-02-11 23:46 | NUR ---
PT AWAKE, WAITING ON RESP FOR TREATMENT AND CPAP, INFORMED PT THAT RESP WILL BE IN IN JUST A FEW MINUTES, SALINE LOCK FLUSHED, ADM DILUTED SOLUMEDROL SIVP OVER 5 MINUTES WITH NO DIFFICULTY, SALINE LOCK FLUSHED, PT KEN WELL, PT DENIES NEEDS AT THIS TIME, BED IN LOW POSITION, SIDE RAILS X 3, CALL LIGHT IN REACH, BED ALARM ON AND WORKING PROPERLY
--- NOTE | 2017-02-12 00:28 | NUR ---
PT RESTING WITH EYES CLOSED, CPAP IN USE AT THIS TIME, RESP QUIET, NO DISTRESS NOTED, LEFT UNDISTURBED AT THIS TIME, BED IN LOW POSITION, SIDE RAILS X 2, CALL LIGHT IN REACH, BED ALARM ON AND WORKING PROPERLY
--- NOTE | 2017-02-12 02:00 | NUR ---
PT RESTING WITH EYES CLOSED, RESP QUIET, NO DISTRESS NOTED, LEFT UNDISTURBED AT THIS TIME
--- NOTE | 2017-02-12 04:38 | NUR ---
PT RESTING WITH EYES CLOSED, RESP QUIET, NO DISTRESS NOTED, LEFT UNDISTURBED AT THIS TIME
--- NOTE | 2017-02-12 06:06 | NUR ---
PT RESTING WITH EYES CLOSED, AROUSES TO SOFT VERBAL STIMULAION, REMOVED CPAP, ADM 0600 MEDS PER MD ORDERS, SEE EMAR, PT DENIES NEEDS OR PAIN AT THIS TIME
--- NOTE | 2017-02-12 08:10 | NUR ---
PT AM MEDS ADMINISTERED. PT DENIES NEEDS. WCTM.
--- NOTE | 2017-02-12 09:40 | NUR ---
Nutrition Follow Up: Pt is eating 89% meal avg on a regular diet. +BM 02/10/17. Meds noted including Solu-Medrol, Bumex. Labs reviewed. Rec continue current diet. RD following.
[2017-02-12 09:54] VITALS: BP 164/83
--- NOTE | 2017-02-12 12:15 | NUR ---
PT EATING LUNCH, DENIES NEEDS. WCTM.
--- NOTE | 2017-02-12 14:25 | NUR ---
PT REQ AND REC'D PRN PAIN MEDICATION. WCTM.
--- NOTE | 2017-02-12 18:20 | NUR ---
PT RESTING IN BED, FAMILY AT BEDSIDE. WCTM.
[2017-02-12 20:00] VITALS: BP 101/50
--- NOTE | 2017-02-12 20:00 | NUR ---
PT IS RESTING IN BED WITH EYES OPEN. ALERT AND ORIENTED X 3. 3 FAMILY MEMBERS VISITING AT THIS TIME. VSS. O2 IS ON @ 5LPM PER NC. NO SOB NOTED. LFA SALINE LOCK NOTED. NO REDNESS OR EDEMA NOTED AT THE INSERTION SITE. SR'S ARE UP X 2 IN BED. CALL LIGHT AND BEDSIDE TABLE ARE WITHIN EASY REACH.
--- NOTE | 2017-02-12 21:57 | NUR ---
PT IS RESTING IN BED WITH EYES OPEN. NO NEEDS VOICED.
--- NOTE | 2017-02-13 00:01 | NUR ---
RESTING IN BED WITH EYES CLOSED. BIPAP ON.
--- NOTE | 2017-02-13 03:15 | NUR ---
PT RESTING QUIETLY IN BED WITH EYES CLOSED. AWOKE EASILY TO VERBAL STIMULI. INC. CARE GIVEN.
--- NOTE | 2017-02-13 08:00 | NUR ---
SHIFT ASSMT COMPLETED.CL IN REACH.
[2017-02-13 08:19] VITALS: BP 104/50
--- NOTE | 2017-02-13 12:00 | NUR ---
SITTING UP EATING LUNCH.DENIES NEEDS.
--- NOTE | 2017-02-13 16:22 | NUR ---
CARE TEAM MEETING: PATIENT AND FAMILY ATTENDED MEETING. DISCHARGE DATE IS 02/15/17 TO HER HOME. [facility] WILL RESUME CARE OF PATIENT. [facility] PATIENT WILL DELIVER A BY-PAP TO PATIENT ORDERS HAVE BEEN FAXED WITH CONFORMATION RECIEVED. DR. AUSTIN 02/22/17 @ 2:15, DR. ALBERTO 04/01/17 @ 2:45. WILL CONTINUE TO FOLLOW WITH PATIENT UNTIL DISCHARGED.
--- NOTE | 2017-02-13 19:45 | NUR ---
PT. SITTING UP IN W/C AND HAS NO VOICED NEEDS. ASSESSMENT COMPLETED. O2 @ 4L/MIN VIA N/C WITHOUT ANY S/S DISTRESS OBSERVED. CALL LIGHT WITHIN REACH.
[2017-02-13 20:15] VITALS: BP 143/83
--- NOTE | 2017-02-13 23:48 | NUR ---
PT. IN BED WITH HOB AND FOB ELEVATED FOR COMFORT. PT. WEARING HER BIPAP WITHOUT ANY ALARMS. EYES CLOSED AND RESP. EVEN. CALL LIGHT WITHIN REACH.
--- NOTE | 2017-02-14 03:28 | NUR ---
PT. IN BED WITH HOB UP FOR COMFORT AND IS WEARING HER BI-PAP WITHOUT ANY ALARMS. EYES CLOSED AND RESP. EVEN WITH HER CALL LIGHT WITHIN REACH.
--- NOTE | 2017-02-14 08:00 | NUR ---
SHIFT ASSMT COMPLETED.
[2017-02-14 08:26] VITALS: BP 100/62
--- NOTE | 2017-02-14 12:00 | NUR ---
DENIES NEEDS.VISITING WITH FAMILY.
--- NOTE | 2017-02-14 19:45 | NUR ---
PT. IN BED WITH HOB UP FOR COMFORT WITH O2 ON @ 4L/MIN. FAMILY MEMBERS VISITING AND MAKING PLANS FOR PT'S D/C TOMORROW. ASSESSMENT COMPLETED. NO VOICED NEEDS AT THIS TIME AND HER CALL LIGHT IS WITHIN REACH.
[2017-02-14 21:14] VITALS: BP 115/55
--- NOTE | 2017-02-14 23:08 | NUR ---
PT. IN BED WITH HOB UP FOR COMFORT WITH HER O2 ON AT 4L/MIN VIA N/C WITHOUT ANY S/S DISTRESS. PT. WATCHING TV AND WAITING FOR R.T. TO COME AND PLACE HER CPAP ON HER FOR THE NIGHT. CALL LIGHT WITHIN REACH.
--- NOTE | 2017-02-15 03:08 | NUR ---
PT. IN BED WITH HOB/FOB ELEVATED FOR COMFORT. PT. WEARING HER BIPAP WITHOUT ANY ALARMS. EYES CLOSED AND RESP. EVEN WITH CALL LIGHT WITHIN REACH.
[2017-02-15 07:07] LABS: BASOPHILS 0.1 % (0-2); EOSINOPHILS 0 % (0-7); HEMATOCRIT 32.2 % (36.0-48.0); HEMOGLOBIN 9.4 g/dL (12-16); IMMATURE GRANULOCYTES 2.5 % (0-5); LYMPHOCYTES 2.7 % (15-50); MCH 23.2 pg (26.0-34.0); MCHC 29.2 g/dL (31.0-37.0); MCV 79.3 fL (80.0-100.0); MEAN PLATELET VOLUME 10.3 fL (7.4-10.4); MONOCYTES 4.3 % (2-11); NEUTROPHILS 90.4 % (40-80); RBC 4.06 10x6/uL (4.00-5.40); RDW 22.5 % (11.5-14.5); WBC 14.5 10x3/uL (4.8-10.8)
[2017-02-15 07:12] LABS: PLATELET COUNT 214 10x3/uL (130-400)
[2017-02-15 07:34] LABS: CALCIUM 8.4 mg/dL (8.5-10.1); CREATININE - SERUM 1.1 mg/dL (0.6-1.3); POTASSIUM - SERUM 4.5 mmol/L (3.5-5.1)
[2017-02-15 07:36] LABS: ANION GAP 6.5 mmol/L (8-16)
--- NOTE | 2017-02-15 07:36 | NUR ---
RESTING QUIETLY IN BED. CALL LIGHT IN REACH. BED IN LOWEST POSITION.
[2017-02-15 08:02] VITALS: BP 116/68
[2017-02-15] MEDS ORDERED: BUMEX2 MG PO (08:49)
--- NOTE | 2017-02-15 12:57 | NUR ---
D/C HOME WITH ALL PERSONAL BELONGINGS. LEFT FLOOR USING OWN OXYGEN. MEDS CALLED INTO [facility]. REVIEWED D/C INSTRUCTIONS AND MEDS WITH PT AND DTR PRIOR TO D/C. SHE WAS GIVEN HARD SCRIPT FOR PAIN MEDS. SHE DENIED NEEDS OR QUESTIONS PRIOR TO D/C.
--- NOTE | 2017-03-23 13:26 | DS ---
PATIENT:RIKKI LUCERO :[birth year] MEDICAL RECORD: [id number] DISCHARGE SUMMARY ADMISSION DATE: 02/04/17 DISCHARGE DATE: 02/15/17 This is a discharge dated 02/15/2017 from the inpatient rehab. PRIMARY DIAGNOSIS: Decreased functional ability and ability to provide activities of daily living secondary to chronic obstructive pulmonary disease myopathy. SECONDARY DIAGNOSES: 1. Chronic obstructive pulmonary disease. 2. Pdjlt-ij-dgbhoep hypoxic hypercapnic respiratory failure. 3. Congestive heart failure. 4. Pneumonia. 5. Hypomagnesemia. 6. Hypokalemia. 7. Pulmonary fibrosis. 8. Neuropathy. 9. Coronary artery disease. 10. Atrial fibrillation. 11. Hypertension. 12. Hyperlipidemia. 13. Depression/anxiety. HOSPITAL COURSE: Full H&P is located elsewhere on the chart on this 81-year-old female who was admitted to inpatient rehab for physical therapy and occupational therapy to improve gait, transfer skills, bed mobility, and activities of daily living to a modified independent level. She was evaluated by PT and OT and their plans of care were followed. She was followed by speech therapy as well with high risk for aspiration. She required half-way care for observation and assessment and medication administration. She remained on Brovana and Pulmicort for nebulized medications for respiratory support. She was on IV Solu-Medrol initially that was weaned to oral steroids prior to discharge. She was on Zosyn, vancomycin, and doxycycline for antibiotic coverage for treatment of pneumonia. Electrolytes were managed by protocol. She was cooperative with therapies, progressing towards goals. Case management was involved for discharge planning. She was considered stable for discharge on 02/15/17. DISCHARGE MEDICATIONS: As per discharge medication reconciliation. DISCHARGE DISPOSITION: The patient is discharged home. She will continue her current diet and level of activity. She will follow up with primary care and specialists as directed. She will have home health with [facility] for continued PT, OT, and half-way care. She has BiPAP set up through [facility]. At least 30 minutes was spent in this discharge activity. TRANSINT:[id number] Voice Confirmation ID: [id number] DOCUMENT ID: [id number] Dictated By: TATO LAMAR I have interviewed/examined the above patient and agree with these documented DISCHARGE SUMMARY REPORT [id number] RIKKI LUCERO findings. AMANDA CORRIGAN MD at 1327 at 1326 CC: [id number] DICTATION DATE: 03/23/17907 RESTAURANT BARTENDER: 03/23/17 1156 DIS IN 02/15/17 [facility] [address] [place] [address]
== END 2017-02-15 13:14 | disposition home health service (06) | DRG 91 ==
LOC: D.REHAB 16:44
PROVIDERS: ADMIT Emergency Medicine
DX: G72.89 Other specified myopathies (principal); J96.21 Acute and chronic respiratory failure with hypoxia; J18.9 Pneumonia, unspecified organism; J90 Pleural effusion, not elsewhere classified; J44.1 Chronic obstructive pulmonary disease with (acute) exacerbation; I11.0 Hypertensive heart disease with heart failure; I50.9 Heart failure, unspecified; I25.10 Atherosclerotic heart disease of native coronary artery without angina pectoris; G47.33 Obstructive sleep apnea (adult) (pediatric); Z99.81 Dependence on supplemental oxygen; F41.8 Other specified anxiety disorders; I51.7 Cardiomegaly; R53.1 Weakness; Y95 Nosocomial condition; R53.81 Other malaise; W19.XXXA Unspecified fall, initial encounter; Z91.19 Patient's noncompliance with other medical treatment and regimen

== ENCOUNTER 2017-02-20 12:49 | Inpatient (IN) | payer MEDICARE ==
[2017-02-20] VITALS (12 sets, daily range): BP systolic 91–136; BP diastolic 54–90; BMI 30.2
[~2017-02-20] VITALS: Ht 160 cm; Wt 79.0 kg
[~2017-02-20 12:49] MED LIST changes: +BUMEX2 MG PO
[2017-02-20 14:11] LABS: BASOPHILS 0.1 % (0-2); EOSINOPHILS 0.1 % (0-7); HEMATOCRIT 34.4 % (36.0-48.0); HEMOGLOBIN 10.1 g/dL (12-16); IMMATURE GRANULOCYTES 1.6 % (0-5); LYMPHOCYTES 5.2 % (15-50); MCH 23.4 pg (26.0-34.0); MCHC 29.4 g/dL (31.0-37.0); MCV 79.6 fL (80.0-100.0); MONOCYTES 5.6 % (2-11); NEUTROPHILS 87.4 % (40-80); PLATELET COUNT 70 10x3/uL (130-400); RBC 4.32 10x6/uL (4.00-5.40); RDW 25.4 % (11.5-14.5); WBC 13.2 10x3/uL (4.8-10.8)
[2017-02-20 14:28] LABS: ALBUMIN 2.8 g/dL (3.4-5.0); ANION GAP 7.7 mmol/L (8-16); BILIRUBIN - TOTAL 0.57 mg/dL (0.2-1.3); CALCIUM 8.1 mg/dL (8.5-10.1); CARBON DIOXIDE 36.6 mmol/L (21.0-32.0); CREATININE - SERUM 1.6 mg/dL (0.6-1.3); POTASSIUM - SERUM 4.3 mmol/L (3.5-5.1); PROTEIN - SERUM 5.6 g/dL (6.4-8.2)
[2017-02-20 14:29] LABS: PLATELET ESTIMATE DECREASED
[2017-02-20 14:44] LABS: MAGNESIUM - SERUM 2.7 mg/dL (1.8-2.4); THYROID STIMULATING HORMONE 4.14 uIU/mL (0.36-3.74)
[2017-02-20 14:52] LABS: TROPONIN-I 0.11 ng/mL (0.000-0.060)
[2017-02-20 17:23] LABS: % SATURATION 17 % (15-55); IRON 49 ug/dl (35-150); TOTAL IRON BIND CAPACITY 279 ug/dl (260-445); UNSAT IRON BIND CAPACITY 230 ug/dl (150-375)
[2017-02-20] MEDS ORDERED: OXYCONTIN10 MG PO (17:51)
[2017-02-20 18:07] LABS: APPEARANCE CLEAR (CLEAR); BILIRUBIN NEGATIVE (NEGATIVE); COLOR YELLOW (YELLOW); GLUCOSE NEGATIVE (NEGATIVE); KETONE NEGATIVE (NEGATIVE); NITRITE NEGATIVE (NEGATIVE); PROTEIN NEGATIVE (NEGATIVE); UROBILINOGEN NORMAL (NORMAL)
[2017-02-20 18:08] LABS: BACTERIA FEW /hpf (NONE SEEN); EPITHELIAL CELLS 0-5 /hpf (0-5); RED CELLS - URINE OCC /hpf (0-5); WHITE CELLS - URINE 0-5 /hpf (0-5)
--- NOTE | 2017-02-20 19:00 | NUR ---
REPORT RECEIVED. SHIFT ASSESSMENT COMPLETED PER FLOW SHEET. PT LAYING IN BED AAOX4. RADIAL AND PEDAL PULSES PALP. TELEMETRY MONITORING HR 62. PT FOLLOWS COMMANDS. 7 L O2 VIA NC. ROBERT CATHETER TO GRAVITY, SECURED DRAINING CLEAR YELLOW URINE. LT CHEST PIV INFUSING LEVOPHED AT 2 MCG/MIN, DRESSING CDI. RT HAND PIV INFUSING NS AT 10 MLS/HR, DRESSING CDI. PT DENIES NEEDS AT THIS TIME. CALL LIGHT WITHIN REACH. BED IN LOWEST POSITION. WILL CONTINUE TO MONITOR.
[2017-02-20 19:01] LABS: CKMB 3.5 U/L (0.0-3.6); CREATINE KINASE 81 UL (21-215)
[2017-02-20 19:05] LABS: TROPONIN-I 0.116 ng/mL (0.000-0.060)
--- NOTE | 2017-02-20 19:06 | NUR ---
ADMITTED PER ER HELPED TRANSFERED SELF TO BED FROM [facility]. SON WITH PATIENT. AWAKE AND ALERT. SKIN WARM AND DRY. LEVOPHED GTT IN [place] AT 2 MCG/MIN. LEFT CHEST HAS SALINE LOCK. MONITOR SR. STATES SHE TAKES PAIN PILLS Q 6 HOURS AT HOME DUE TO BACK PAIN FROM FALL ON . ROBERT CATH PATENT AND DRAINING OLIVIA URINE.
--- NOTE | 2017-02-20 20:21 | NUR ---
TWO DAUGHTERS AT BEDSIDE. UPDATE GIVEN. QUESTIONS ANSWERED.
--- NOTE | 2017-02-20 23:20 | NUR ---
REASSESSMENT COMPLETED PER FLOW SHEET. NO CHANGES FROM PREVIOUS, SEE FLOW SHEET FOR DETAILS. WATER PROVIDED PER REQUEST. DENIES FURTHER NEEDS. CALL LIGHT WITHIN REACH. BED IN LOWEST POSITION. WILL CONTINUE TO MONITOR.
[2017-02-20 23:44] LABS: CKMB 2.8 U/L (0.0-3.6); CREATINE KINASE 61 UL (21-215)
[2017-02-20 23:45] LABS: TROPONIN-I 0.116 ng/mL (0.000-0.060)
[2017-02-21] VITALS (78 sets, daily range): BP systolic 80–130; BP diastolic 44–92; Ht 160 cm; Wt 79.0 kg
--- NOTE | 2017-02-21 01:50 | NUR ---
PT COIL MAKER LIGHT, STATING SHE NEEDS TO USE THE BATHROOM, ASSISSTED PT TO BEDPAN, SOFT STOOL NOTED. PT CLEANED AND PARTIAL BED LINEN CHANGED. REPOSITIONED FOR COMFORT. DENIES OTHER NEEDS. CALL LIGHT WITHIN REACH. BED IN LOWEST POSITION. WILL CONTINUE TO MONITOR.
--- NOTE | 2017-02-21 02:13 | NUR ---
COMPLAINING OF SEVERE BACK PAIN DUE TO RECENT FALL, REQUESTING I CALL HER PHYSICIAN TO OBTAIN PAIN MEDICATION. DR. PAYTON KENDRICK, WILL WAIT FOR CALL BACK.
--- NOTE | 2017-02-21 02:24 | NUR ---
ADITYA ESTES SENIOR COST ESTIMATOR FOR DR. CAIN, NEW ORDERS RECEIVED, SEE EMAR FOR DETAILS.
--- NOTE | 2017-02-21 02:42 | NUR ---
SBP DROPPING TO 88. LEVOPHED STARTED AT 1 MCG/KG/MIN. WILL CONTINUE TO MONITOR.
--- NOTE | 2017-02-21 03:00 | NUR ---
REASSESSMENT COMPLETE, SEE FLOW SHEET FOR DETAILS. NO CHANGES FROM PREVIOUS. DENIES NEEDS AT THIS TIME. WILL CONTINUE TO MONITOR. CALL LIGHT WITHIN REACH.
--- NOTE | 2017-02-21 05:00 | NUR ---
PT LAYING IN BED RESTING, WATER PROVIDED PER REQUEST. DENIES FURTHER NEEDS. CALL LIGHT WITHIN REACH.
[2017-02-21 06:33] LABS: CALC OSMOLALITY 280 mosm/kg (275-300); CALCIUM 8.1 mg/dL (8.5-10.1); CARBON DIOXIDE 35.2 mmol/L (21.0-32.0); CHLORIDE - SERUM 101 mmol/L (98-107); CKMB 3.1 U/L (0.0-3.6); CREATINE KINASE 76 UL (21-215); CREATININE - SERUM 1.4 mg/dL (0.6-1.3); GLUCOSE 72 mg/dL (74-106); SODIUM 139 mmol/L (136-145); UREA NITROGEN 24 mg/dL (7-18); eGFR NON AFRICAN AMERICAN 38 mL/min (90-120)
[2017-02-21 06:38] LABS: TROPONIN-I 0.106 ng/mL (0.000-0.060)
[2017-02-21 06:47] LABS: BASOPHILS 0 % (0-2); EOSINOPHILS 0.4 % (0-7); HEMATOCRIT 32.6 % (36.0-48.0); HEMOGLOBIN 9.6 g/dL (12-16); IMMATURE GRANULOCYTES 0.8 % (0-5); LYMPHOCYTES 4.3 % (15-50); MCH 23.9 pg (26.0-34.0); MCHC 29.4 g/dL (31.0-37.0); MCV 81.3 fL (80.0-100.0); NEUTROPHILS 90.3 % (40-80); PLATELET COUNT 64 10x3/uL (130-400); RBC 4.01 10x6/uL (4.00-5.40); RDW 25.4 % (11.5-14.5)
--- NOTE | 2017-02-21 09:57 | NUR ---
DOPAMINE STARTED AT 5MCG/KG/MIN INFUSING VIA LT CHEST IV.
--- NOTE | 2017-02-21 10:45 | NUR ---
CONTACTED VARGHESE SANCHEZ RN FOR VASCULAR ACCESS CONSULT.
--- NOTE | 2017-02-21 11:27 | NUR ---
* Is the patient Alert and Oriented? Yes 0 * How many steps to enter\exit or inside your home? 2 0 * PCP Dr. Wagner 0 * [facility] [address] 0 * Preadmission Environment Home with Family 0 * ADLs Partial Dependent 0 * Partial ADLs (Assistance needed) Ambulation Bathing Dressing Medication Management Toileting 0 * Equipment Bedside Commode BIPAP Nebulizer Oxygen Rolling Walker Shower Chair 0 * List name and contact numbers for known caregivers / representatives who currently or will assist patient after discharge: Daughter - Twyla Page [phone] Son - Abdiel Rust [phone] 0 * Community resources currently utilized Home Health 0 * Please name any agencies selected above. [facility] 0 * Additional services required to return to the preadmission environment? Yes 0 * Can the patient safely return to the preadmission environment? Yes 0 * Has this patient been hospitalized within the prior 30 days at any hospital? Yes Patient Name: RIKKI RUST Admission Status: ER Accout number: [id number] Admission Date: 02-20-2017 : 1935 Admission Diagnosis: Attending: PAYTON, Current LOS: 1 Anticipated DC Date: Planned Disposition: Intermediate Facility Primary Insurance: MEDICARE A & B Discharge Planning Comments: CM met with patient & son, Abdiel, to assess dc plans/needs. Patient states she was just discharged from inpatient rehab here at [facility] on 02/15. She states [facility] were seeing her at home. She states she uses a walker at home, wears O2 @ 4L & has a Bipap & nebulizer. Abdiel reports they are considering group home facilities. He and his sister plan to visit a couple in the next day or so. CM will follow & assist as needed. [employer] Specialist: Ree Meeks
--- NOTE | 2017-02-21 13:12 | NUR ---
VARGHESE HERE IN TO PLACE MIDLINE AT THIS TIME.
--- NOTE | 2017-02-21 15:07 | NUR ---
PATIENT SLEEPING AT THIS TIME WITH NO CHANGES IN CONDITION. CALL LIGHT WITHIN REACH, BED IN LOW POSITION.
--- NOTE | 2017-02-21 17:44 | NUR ---
PATIENT WANTED TO SIT UP ON BEDSIDE TO EAT DINNER. PATIENT IS TOLERATING WELL AT THIS TIME.
--- NOTE | 2017-02-21 19:10 | NUR ---
REPORT RECIEVED. ASSESSMENT COMPLETE PER FLOW SHEET. VSS. REFER FOR FINDINGS. GIVEN SOUP AND TEA PER REQUEST. DENIES FURTHER NEEEDS. WILL CONTINUE TO MONITOR
--- NOTE | 2017-02-21 20:00 | NUR ---
GIVEN SOUP PER REQUEST ATE 100% NEEDS MEET
--- NOTE | 2017-02-21 21:00 | NUR ---
FAMILY AT BEDSIDE. GIVEN UPDATE. NO NEW CHANGES. WILL CONTINUE TO MONITOR
--- NOTE | 2017-02-21 22:53 | NUR ---
REASSESSMENT COMPLETE PER FLOW SHEET. VSS. NO NEW CHANGES. WILL CONTINUE TO MONITOR
[2017-02-22] VITALS (30 sets, daily range): BP systolic 96–157; BP diastolic 60–101
--- NOTE | 2017-02-22 03:26 | NUR ---
REASSESSMENT COMPLETE PER FLOW SHEET. VSS. NO NEW CHANGES. WILL CONTINUE TO MONITOR
[2017-02-22 04:02] LABS: BASOPHILS 0 % (0-2); EOSINOPHILS 0 % (0-7); HEMATOCRIT 31.8 % (36.0-48.0); HEMOGLOBIN 9.4 g/dL (12-16); IMMATURE GRANULOCYTES 0.8 % (0-5); LYMPHOCYTES 5.1 % (15-50); MCH 23.7 pg (26.0-34.0); MCHC 29.6 g/dL (31.0-37.0); MCV 80.1 fL (80.0-100.0); MONOCYTES 0.7 % (2-11); NEUTROPHILS 93.4 % (40-80); PLATELET COUNT 76 10x3/uL (130-400); RBC 3.97 10x6/uL (4.00-5.40); RDW 25.7 % (11.5-14.5); WBC 7.6 10x3/uL (4.8-10.8)
[2017-02-22 04:14] LABS: ALBUMIN 2.3 g/dL (3.4-5.0); ANION GAP 7.5 mmol/L (8-16); BILIRUBIN - TOTAL 0.48 mg/dL (0.2-1.3); C-REACTIVE PROTEIN 10.8 mg/dL (0.0-0.9); CALCIUM 7.9 mg/dL (8.5-10.1); CARBON DIOXIDE 33.5 mmol/L (21.0-32.0); CREATININE - SERUM 1.3 mg/dL (0.6-1.3); MAGNESIUM - SERUM 2.5 mg/dL (1.8-2.4); PHOSPHOROUS 3.3 mg/dL (2.5-4.9); PROTEIN - SERUM 5.1 g/dL (6.4-8.2)
[2017-02-22 08:20] LABS: FOLATE (FOLIC ACID) - SERUM 14.6 ng/mL (>3.0)
--- NOTE | 2017-02-22 09:52 | NUR ---
DR. LUIS IN TO SEE PATIENT.
--- NOTE | 2017-02-22 10:15 | NUR ---
DR. CAIN IN ROOM TO SEE PATIENT.
--- NOTE | 2017-02-22 10:49 | NUR ---
Nutrition follow-up: Diet: low sodium Regular solids and thin liquids per speech. PO intake 25-50% of meals labs reviewed RDN following.
--- NOTE | 2017-02-22 12:40 | NUR ---
PATIENT UP TO BSC FOR BM. PATIENT HAD APPROX. 50ML OF DIARRHEA OLIVAREZ TO GREENISH. PATIENT COMPLAINED OF COCCYX AREA BEING RAW AND WANTED SOME CREAM ON IT. PULLED PATIENT BUTTOCKS APART TO LOOK AT COCCYX AREA AND NOTED A [id number] STAGE II ULCERATION.
--- NOTE | 2017-02-22 18:40 | NUR ---
PLACED DUODERM ON COCCYX AREA AND BUTTOCKS. AFTER CLOSEER ASSESSMENT OF AREA NOTED FIVE [id number] CRATERS, WITH ONE AREA WITH FIVE SMALLER SORES NOTED. NO EXCUDATE NOTED, AND PATIENT DENIES PAIN OR ITCHING. WILL CONSULT WOUND CARE.
--- NOTE | 2017-02-22 19:30 | NUR ---
RECEIVED CARE OF PT, ASSESSMENT PER FLOWSHEET. PT ALERT AND ORIENTED X 4, ON 4L O2 VIA NC, HR SR ON CM, BREATH SOUNDS DIMINISHED BILATERALLY WITH CRACKLES AUSCULTATED IN RLL, PPP, ROBERT CATH PATENT WITH CLEAR YELLOW URINE IN TUBING, PT DENIES PAIN AT THIS TIME, ASSISTED TO COMFORTABLE POSITION, VSS, WILL MONITOR.
--- NOTE | 2017-02-22 21:10 | NUR ---
PT FAMILY AT BEDSIDE, ICE WATER PROVIDED PER REQUEST, UPDATE GIVEN AND ALL QUESTIONS ANSWERED. BED LOW, CALL LIGHT IN REACH, BOTH DENY ANY FURTHER NEEDS.
--- NOTE | 2017-02-22 23:15 | NUR ---
REASSESSMENT PER FLOWSHEET, NO ACUTE CHANGES. PT RESTING IN BED IN NO APPARENT DISTRESS, VSS, CONT POC.
[2017-02-23] VITALS (14 sets, daily range): BP systolic 120–165; BP diastolic 64–92
--- NOTE | 2017-02-23 01:19 | NUR ---
ASSISTED PT ONTO BEDPAN PER REQUEST, NO RESULTS YIELDED, PLACED PILLOWS BACK FOR COMFORT, DENIES ANY OTHER NEEDS.
--- NOTE | 2017-02-23 03:15 | NUR ---
REASSESSMENT PER FLOWSHEET, NO ACUTE CHANGES NOTED. PT REMAINS SR ON MONITOR, VSS, CONT POC.
[2017-02-23 03:47] LABS: BASOPHILS 0 % (0-2); EOSINOPHILS 0 % (0-7); HEMATOCRIT 31.1 % (36.0-48.0); HEMOGLOBIN 9.3 g/dL (12-16); IMMATURE GRANULOCYTES 0.4 % (0-5); LYMPHOCYTES 3.8 % (15-50); MCH 23.9 pg (26.0-34.0); MCHC 29.9 g/dL (31.0-37.0); MCV 79.9 fL (80.0-100.0); MONOCYTES 1.4 % (2-11); NEUTROPHILS 94.4 % (40-80); PLATELET COUNT 69 10x3/uL (130-400); RBC 3.89 10x6/uL (4.00-5.40); RDW 26.2 % (11.5-14.5); WBC 9.5 10x3/uL (4.8-10.8)
[2017-02-23 04:07] LABS: ALBUMIN 2.2 g/dL (3.4-5.0); ANION GAP 10.4 mmol/L (8-16); BILIRUBIN - TOTAL 0.47 mg/dL (0.2-1.3); CALCIUM 8.1 mg/dL (8.5-10.1); CARBON DIOXIDE 30.1 mmol/L (21.0-32.0); CREATININE - SERUM 1.1 mg/dL (0.6-1.3); POTASSIUM - SERUM 3.5 mmol/L (3.5-5.1); PROTEIN - SERUM 5.1 g/dL (6.4-8.2)
--- NOTE | 2017-02-23 05:10 | NUR ---
NO VISITORS PRESENT AT THIS TIME, PT RESTING WITH EYES CLOSED, VSS.
--- NOTE | 2017-02-23 07:50 | NUR ---
UNABLE TO SCAN 0600 MEDS PER [employer] LOCK OUT, HOUSE SUP NOTIFIED, PHARMACY NOTIFIED.
--- NOTE | 2017-02-23 08:00 | NUR ---
INITIAL ASSESSENT COMPLETED PER FLOW SHEET.
--- NOTE | 2017-02-23 08:25 | NUR ---
PULLED UP IN BED. REPOSITIONED FOR COMFORT. ENCOURAGED COUGH AND DEEP BREATHING. STRONG NON PRODUCTIVE COUGH. BREAKFAST TRAY SERVED. DENIES OTHER NEEDS. DENIES PAIN. CLWR. CPOC.
--- NOTE | 2017-02-23 09:07 | NUR ---
FAMILY AT BEDSIDE. UPDATED BY PT.
--- NOTE | 2017-02-23 10:43 | NUR ---
WAITING FOR BED TO TRANSFER.
--- NOTE | 2017-02-23 12:04 | NUR ---
LUNCH TRAY SERVED. RESTING WITH EYES CLOSED. VSS. REPSONSE TO VERBAL STIMULATION. DENIES NEEDS. CLWR. CPOC.
--- NOTE | 2017-02-23 13:17 | NUR ---
PAIN PILL GIVEN. C/O PAIN 08/01. BACK PAIN.
--- NOTE | 2017-02-23 13:17 | NUR ---
REPORT CALLED TO ALEJANDRO OBRIEN AND TRANSFERING TO 2121 VIA BED.
--- NOTE | 2017-02-23 13:33 | NUR ---
TRANSFER FROM ICU BY BED. CALL LIGHT IN REACH. WILL CONT. PLAN OF CARE.
--- NOTE | 2017-02-23 13:40 | NUR ---
RECEIVED PT IN BED AAOX4 RESP UNLABORED O2 ON 3LPM NC SKIN W/D COLOR WNL NAD NOTED AT THIS TIME
[2017-02-23 18:08] LABS: HEPARIN INDUCED PLATELET AB 0.292 OD (0.000-0.400)
[2017-02-24] VITALS: BP 119/63
[2017-02-24 04:00] VITALS: BP 135/73
[2017-02-24 04:05] LABS: BASOPHILS 0 % (0-2); EOSINOPHILS 0 % (0-7); HEMATOCRIT 31.6 % (36.0-48.0); HEMOGLOBIN 9.2 g/dL (12-16); IMMATURE GRANULOCYTES 0.4 % (0-5); LYMPHOCYTES 3.3 % (15-50); MCH 23.7 pg (26.0-34.0); MCHC 29.1 g/dL (31.0-37.0); MCV 81.2 fL (80.0-100.0); MONOCYTES 1.5 % (2-11); NEUTROPHILS 94.8 % (40-80); PLATELET COUNT 75 10x3/uL (130-400); RBC 3.89 10x6/uL (4.00-5.40); RDW 26.6 % (11.5-14.5); WBC 8.5 10x3/uL (4.8-10.8)
[2017-02-24 04:22] LABS: ALBUMIN 2.3 g/dL (3.4-5.0); ANION GAP 9.8 mmol/L (8-16); BILIRUBIN - TOTAL 0.34 mg/dL (0.2-1.3); CALCIUM 8.2 mg/dL (8.5-10.1); CARBON DIOXIDE 30.1 mmol/L (21.0-32.0); POTASSIUM - SERUM 3.9 mmol/L (3.5-5.1); PROTEIN - SERUM 4.8 g/dL (6.4-8.2)
--- NOTE | 2017-02-24 07:20 | NUR ---
ASSESSMENT COMPLETED. TELEMERTY SHOWS SR 92. O2 AT 2 L/M PER NC. ALERT AND ORIENTED. ROBERT CATH PATENT TO GRAVITY BAG. PT HAS A FX TO THE T7. MID LINE IV TO LEFT ARM WITH NS WITH 20 KCL AT 75. SR UP WITH CALL LIGHT IN REACH. PAIN MED GIVEN FOR C/O BACK PAIN
[2017-02-24 09:34] VITALS: BP 138/71
--- NOTE | 2017-02-24 09:59 | NUR ---
LYING QUIETLY. FAMILY AT BED SIDE. NO DISTRESS NOTED
[2017-02-24 16:12] VITALS: BP 141/69
--- NOTE | 2017-02-24 17:36 | NUR ---
HOB UP. FAMILY AT BEDSIDE. DENIES ANY NEEDS.TELEMERTY SHOWS SR. WILL MONITOR
--- NOTE | 2017-02-24 19:00 | NUR ---
RECEIVED REPORT AND ASSUMED PT CARE FROM DAY SHIFT NURSE @ THIS TIME.
--- NOTE | 2017-02-24 20:30 | NUR ---
INITIAL ASSESSMENT COMPLETED, VSS, AFEBRILE. RESP EVEN AND UNLABORED. ROOM AIR. NO DYSPNEA. NSR ON MONITOR, HR 70'S. DENIES ANY C/O PAIN. ROBERT TO BSD, DRAINS CLEAR DARK OLIVIA URINE. CALL LIGHT WITHIN REACH. WILL CONT TO MONITOR.
[2017-02-24 21:46] VITALS: BP 117/57
[2017-02-25] VITALS: BP 119/63
[2017-02-25 05:03] LABS: BASOPHILS 0 % (0-2); EOSINOPHILS 0 % (0-7); HEMATOCRIT 30.9 % (36.0-48.0); HEMOGLOBIN 9.1 g/dL (12-16); IMMATURE GRANULOCYTES 0.3 % (0-5); MCH 23.8 pg (26.0-34.0); MCHC 29.4 g/dL (31.0-37.0); MCV 80.9 fL (80.0-100.0); MEAN PLATELET VOLUME 9.1 fL (7.4-10.4); MONOCYTES 1.7 % (2-11); PLATELET COUNT 70 10x3/uL (130-400); RBC 3.82 10x6/uL (4.00-5.40); RDW 26.4 % (11.5-14.5); WBC 7.1 10x3/uL (4.8-10.8)
[2017-02-25 05:33] VITALS: BP 130/69
[2017-02-25 05:44] LABS: ALBUMIN 2.3 g/dL (3.4-5.0); ANION GAP 5.9 mmol/L (8-16); BILIRUBIN - TOTAL 0.35 mg/dL (0.2-1.3); CARBON DIOXIDE 29.7 mmol/L (21.0-32.0); CREATININE - SERUM 0.9 mg/dL (0.6-1.3); PROTEIN - SERUM 4.8 g/dL (6.4-8.2)
[2017-02-25 05:46] LABS: POTASSIUM - SERUM 4.6 mmol/L (3.5-5.1)
--- NOTE | 2017-02-25 08:57 | NUR ---
REHAB PRESCREENING Ms. Rust is well know to this rehab program. At this time she is not willing to ambulate per PT note. PT states they will continue to work with her for progress. Rehab will continue to follow. Thank you for this referral! Kristan Gamez, IT ARCHITECTURE ANALYST Rehab Manager Wound
[2017-02-25 09:15] VITALS: BP 124/80
[2017-02-25 12:39] VITALS: BP 123/67
--- NOTE | 2017-02-25 12:46 | NUR ---
TELEMETRY SR. RESP UL ON 02 4L NC. IV PATENT. ASSISTED TO CHAIR FOR LUNCH. WILL CONT. PLAN OF CARE.
--- NOTE | 2017-02-25 13:01 | NUR ---
BED REST UP. GROIN STABLE. TR BAND DCD WITHOUT BLEEDING OR HEMATOMA NOTED. WILL CONT. PLAN OF CARE.
--- NOTE | 2017-02-25 14:05 | NUR ---
Nutrition follow-up: Diet: Low sodium PO intake ~75% of meals; po intake improved +BM Wt: 171# Labs reviewed RDN following.
[2017-02-25 16:27] VITALS: BP 114/61
--- NOTE | 2017-02-25 17:04 | NUR ---
Patient Name: RIKKI LUCERO Encounter No: [id number] : 1935 Primary Insurance: MEDICARE A & B Anticipated DC Date: Planned Disposition: Fpc Facility External Planned Provider: TO BE DETERMINED DCP follow-up note: CM SPOKE TO KAMAR ESTES IN [facility] WHO REPORTS PT NEEDS REHAB, HAS REFUSED SOME THERAY, CANNOT GO HOME AND PT DOES NOT BELIEVE SHE CAN DO THREE HOURS OF THERAPY TO GO TO INPATIENT REHAB. CM MET WITH PT AND SON IN ROOM TO DISCUSS DISCHARGE PLANNING AND NEEDS. CM DISCUSSED AVAILABILITY AND LOCATIONS OF INPATIENT REHAB WELL LONG TERM REHABS, CHOICE LISTING PROVIDED. PT REPORTS INABILITY TO PARTICIPATE IN THREE HOURS OF PREGRESSIVE THERAPY PER DAY, FAMILY IS CONCERNED THAT THEY WOULD LIKE PT TO HAVE BACK FUSION PRIOR TO LEAVING FOR THERAPY. CM EXPLAINED THAT IT MAY BE AN OUTPATIENT PROCEDURE AND DEPENDING ON SCHEDULING WITH A DOCTOR, MAY NOT BE AVAILABLE FOR SOME TIME AND THAT REHAB WOULD START WORKING ON WHATEVER REHAB IS POSSIBLE AT TIME OF ADMISSION. IMPORTANT MESSAGE FROM MEDICARE PROVIDED AND EXPLAINED. PT AND FAMILY WANT TO SPEAK TO THE DOCTOR AND WILL CONTACT CM WHEN THEY MAKE A DECISION REGARDING INPATIENT OR SNF REHAB. CM WAITING PATIENT AND FAMILY DECISION REGARDING INPATIENT OR LONG TERM REHAB. Jett Stauffer, CASE MANAGEMENT
--- NOTE | 2017-02-25 20:06 | NUR ---
PT'S SON AT BEDSIDE. CONCERNED THAT PT AND DAUGHTER SAY DR ALVA NEVER SAW PATIENT TODAY. REVIEWED MD NOTES FOR TODAY THAT DO INDICATE MD SAW PT AND SPOKE WITH PT AND DAUGHTER AT REHAB. PT IS ADAMENT THAT THE MD DID NOT SEE HER, THAT "THE OTHER LADY WITH RED HAIR SAW ME, THE ONE I GO TO SPIRITISM WITH". REVIEWED MD NOTES WITH SON AND HE WILL FOLLOW UP WITH BRANDI IN ABOUT THE REHAB OPTION.
[2017-02-25 21:22] VITALS: BP 127/69
--- NOTE | 2017-02-25 22:25 | NUR ---
BEDTIME MEDS GIVEN. PT HAS BEEN UP TO BEDSIDE COMMODE AND HAD BM. PAIN AND NERVE PILL GIVEN. CALL LIGHT IN REACH.
[2017-02-26 02:14] VITALS: BP 113/58
[2017-02-26 05:55] VITALS: BP 136/67
--- NOTE | 2017-02-26 06:06 | NUR ---
AWAKENED PT FOR AM SCHEDULED MEDS. PT C/O PAIN ALL OVER. MEDICATED WITH NORCO TAB X 1. NOTED THAT THE IV ACCESS ON PT'S PHUC IS A MIDLINE IV AND FLUSHED AT THIS TIME.
[2017-02-26 06:42] LABS: BASOPHILS 0 % (0-2); EOSINOPHILS 0 % (0-7); HEMATOCRIT 34.6 % (36.0-48.0); HEMOGLOBIN 10.1 g/dL (12-16); IMMATURE GRANULOCYTES 0.2 % (0-5); MCH 23.8 pg (26.0-34.0); MCHC 29.2 g/dL (31.0-37.0); MCV 81.6 fL (80.0-100.0); MEAN PLATELET VOLUME 10.1 fL (7.4-10.4); MONOCYTES 1.7 % (2-11); NEUTROPHILS 95.1 % (40-80); PLATELET COUNT 113 10x3/uL (130-400); RBC 4.24 10x6/uL (4.00-5.40); RDW 26.7 % (11.5-14.5); WBC 8.2 10x3/uL (4.8-10.8)
--- NOTE | 2017-02-26 07:00 | NUR ---
RECEIVED REPORT. ASSUMED CARE OF PATIENT. CALL LIGHT WITHIN REACH. PATIENT WITH EYES CLOSED, RESTING IN BED. RESP EVEN AND UNLABORED. EASILY AROUSED. NO DISTRESS. DENIES NEEDS.
[2017-02-26 07:02] LABS: ALBUMIN 2.6 g/dL (3.4-5.0); ANION GAP 8.7 mmol/L (8-16); BILIRUBIN - TOTAL 0.4 mg/dL (0.2-1.3); CALCIUM 8.4 mg/dL (8.5-10.1); CARBON DIOXIDE 29.8 mmol/L (21.0-32.0); POTASSIUM - SERUM 4.5 mmol/L (3.5-5.1); PROTEIN - SERUM 5.3 g/dL (6.4-8.2)
[2017-02-26 07:43] VITALS: BP 121/60
--- NOTE | 2017-02-26 09:45 | NUR ---
REFUSED MIRALAX AT THIS TIME. NO DISTRESS.
--- NOTE | 2017-02-26 11:31 | NUR ---
PATIENT OOB TO CHAIR. MEDICATED FOR PAIN AT THIS TIME. FAMILY AT BEDSIDE. NO DISTRESS.
[2017-02-26 11:35] VITALS: BP 131/78
--- NOTE | 2017-02-26 17:27 | NUR ---
RESTING IN BED. CALL LIGHT WITHIN REACH. CONSUMING PM MEAL. FAMILY AT BEDSIDE. DENIES NEEDS. DENIES PAIN MEDICATION AT THIS TIME. NO DISTRESS.
--- NOTE | 2017-02-26 19:26 | NUR ---
PT RESTING IN BED. FAMILY AT BED SIDE. PT ON 4L O2 NC. PT HAS NO S/S OF DISTRESS. DENIES ANY NEEDS. BED LOW AND CALL LIGHT IN REACH. WILL CPOC
--- NOTE | 2017-02-26 19:47 | NUR ---
Patient Name: RIKKI LUCERO Encounter No: [id number] : 1935 Primary Insurance: MEDICARE A & B Anticipated DC Date: Planned Disposition: Shelter Facility External Planned Provider: [facility], MEDICARE REHAB BED DCP follow-up note: CM SPOKE TO PT AND SON IN ROOM AT PT'S REQUEST. PT SIGNED CHOICE LETTER FOR [facility] AND WOULD LIKE TO SECURE REHAB PLACEMENT FOR HER. PT DOES NOT WANT TO LEAVE UNTIL SHE SPEAKS TO DR. SPANGLER. CM FAXED REFERRAL TO [facility] AT [phone]. CM TO FOLLOW UP WITH [facility], , ON 02-27 TO DETERMINE IF [facility] HAS A BED AND IF THEY WILL CONSIDER PT FOR REHAB SERVICES. Jett Stauffer, CASE MANAGEMENT
[2017-02-26 21:50] VITALS: BP 134/77
--- NOTE | 2017-02-26 23:02 | NUR ---
PT ASLEEP. RESPIRATIONS EVEN AND UNLABORED. NO S/S OF DISTRESS. WILL CPOC
[2017-02-27 00:20] VITALS: BP 129/84
--- NOTE | 2017-02-27 00:30 | NUR ---
PT UP TO BSC X1 ASSIST. NEW STATLOCK PLACED ON LEG TO SECURE ROBERT. PT HAS SCABS/SORES ON BUTTOCK. A LARGE PURPLE BRUISE ON LEFT LOWER BUTTOCKS. PT ON 4L O2 NC. PT BACK IN BED. MODERATE BM. SOFT, NON FORMED. ROBERT HAS CLOUDY URINE WITH SEDIMENT PRESENT. PT HAS NO S/S OF DISTRESS. WILL CPOC
[2017-02-27 04:33] VITALS: BP 133/86
--- NOTE | 2017-02-27 05:50 | NUR ---
PT ASLEEP. RESPIRATIONS EVEN AND UNLABORED. 4L OF O2 NC. BED LOW AND CALL LIGHT IN REACH. WILL CPOC
[2017-02-27 06:05] LABS: BASOPHILS 0 % (0-2); EOSINOPHILS 0 % (0-7); HEMATOCRIT 33.9 % (36.0-48.0); HEMOGLOBIN 9.9 g/dL (12-16); IMMATURE GRANULOCYTES 0.4 % (0-5); LYMPHOCYTES 2.6 % (15-50); MCHC 29.2 g/dL (31.0-37.0); MCV 82.3 fL (80.0-100.0); MEAN PLATELET VOLUME 9.7 fL (7.4-10.4); PLATELET COUNT 112 10x3/uL (130-400); RBC 4.12 10x6/uL (4.00-5.40); RDW 26.7 % (11.5-14.5); WBC 7.7 10x3/uL (4.8-10.8)
[2017-02-27 06:20] LABS: ALBUMIN 2.5 g/dL (3.4-5.0); ANION GAP 8.8 mmol/L (8-16); BILIRUBIN - TOTAL 0.26 mg/dL (0.2-1.3); CALCIUM 8.1 mg/dL (8.5-10.1); CREATININE - SERUM 0.9 mg/dL (0.6-1.3); POTASSIUM - SERUM 4.8 mmol/L (3.5-5.1)
[2017-02-27 08:21] VITALS: BP 113/69
--- NOTE | 2017-02-27 10:49 | NUR ---
THIS AM, PATIENT HAS BEEN ASLEEP. HAD TO WAKE FOR MEDS. CO PAIN IN L BREAST AREA. MED ACCORDINGLY. SEE ASSESSMENT FOR FURTHER EVAL. MONITOR SHOWS SR WITH OCC. PVCS WITH RATE OF 84.
[2017-02-27 11:34] VITALS: BP 125/69
--- NOTE | 2017-02-27 14:42 | NUR ---
Patient Name: RIKKI LUCERO Encounter No: [id number] : 1935 Primary Insurance: MEDICARE A & B Anticipated DC Date: Planned Disposition: [facility] Facility External Planned Provider: [facility], MEDICARE REHAB BED DCP follow-up note: CM RECEIVED CALL FROM [facility], THEY WILL ACCEPT PT FOR REHAB AT DISCHARGE. PT'S SON NOTIFIED VIA PHONE WHO REQUESTED A BACK BRACE FOR PT IF POSSIBLE, PRIOR TO DISCHARGE TO REHAB. CM NOTIFIED KAMAR ESTES. FOR DISCHARGE, FAX DISCHARGE INFORMATION TO [facility], , CALL NURSE REPORT TO [facility] AT [phone]. [facility] TO ARRANGE VAN TRANSPORTATION. Jett Stauffer, CASE MANAGEMENT
[2017-02-27] MEDS ORDERED: PREDNISONE10 MG PO (15:20)
--- NOTE | 2017-02-27 15:33 | NUR ---
PT TO GO TO [facility]. JAKOB DOUGLASS. MIDLINE OUT WITH TIP INTACT. NO SIGNS OF INFECTION. BREAST IV REMOVED. PT HAD A MODERATE BM. BEAD FORMING MACHINE SET UP OPERATOR HELPING PT DRESSED.
[2017-02-27 16:14] VITALS: BP 138/73
--- NOTE | 2017-02-27 17:03 | NUR ---
[facility]. REPORT CALLED TO RYAN GILBERT LPN
--- NOTE | 2017-02-27 17:51 | NUR ---
VAN HERE FOR DISCHARGE. TO [place] VIA
--- NOTE | 2017-04-17 11:58 | DS ---
PATIENT:RIKKI LUCERO :[birth year] MEDICAL RECORD: [id number] DISCHARGE SUMMARY ADMISSION DATE: 02/20/17 DISCHARGE DATE: 02/27/17 DATE OF ADMISSION: 02/20/2017 DATE OF DISCHARGE: 02/27/2017 DISCHARGE DIAGNOSES: 1. Thoracic compression fracture. 2. Chronic obstructive pulmonary disease. 3. Congestive heart failure. 4. Cardiomyopathy. 5. Hypoxia. 6. Pulmonary fibrosis. 7. Leukocytosis. 8. Atrial fibrillation. 9. Syncope. 10. Acute kidney injury. 11. Thrombocytopenia. 12. Hyperlipidemia. CONSULTS: 1. Alexander Sandoval MD 2. Mahin Izaguirre MD 3. Pulmonology, Dr. Hung IMAGES STUDIES: 1. X-ray of the thoracic spine which shows moderate compression deformity at T7. 2. X-rays of the left rib and PA, there is no acute left-sided rib fracture. There is bibasilar atelectasis. HOSPITAL COURSE: Full H&P is listed elsewhere in the chart for this 81-year-old patient who presented with a recent fall, had a syncopal episode at home, admitted with pneumonia in a debilitated condition, had some AFib with hypotension and electrolyte abnormalities. The patient was admitted into the intensive care unit, was placed on aggressive IV hydration as well as Levophed drip, broad-spectrum antibiotic therapy, was initiated along with steroids and aggressive pulmonary toilet. Lovenox was used for DVT prophylaxis. Antibiotic coverage included doxycycline, Zosyn, and vancomycin. Numerous consultants was on the patient's case. The patient underwent several imaging studies, see those findings above. The patient required some correction of her electrolytes during her hospitalization. It was thought her troponin was elevated due to renal failure and stress ____ the patient successfully weaned off the Levophed drip, was transferred to the floor and her antibiotic therapy was deescalated. The patient's clinical condition improved and was thought to be stable to discharge to [facility]. See med rec. TRANSINT:[id number] Voice Confirmation ID: [id number] DOCUMENT ID: [id number] Dictated By: VALDO ANN I have interviewed/examined the above patient and agree with these documented findings. DISCHARGE SUMMARY REPORT [id number] RIKKI LUCERO JODI MD at 1114 at 1158 CC: [id number] DICTATION DATE: 04/16/17 0851 FLAP PRESSER: 04/16/17 1504 DIS IN 02/27/17 [facility] [id number] [place] [address]
== END 2017-02-27 17:53 | DRG 871 ==
LOC: D.ER 12:49 → D.ICU 16:32 → D.M2 02-23 13:28
PROVIDERS: Emergency Medicine; ADMIT Family Medicine
PROC: 05HB33Z Insertion of Infusion Device into Right Basilic Vein, Percutaneous Approach (ICD-10-PCS; principal; 2017-02-21)
PROC: B54MZZA Ultrasonography of Right Upper Extremity Veins, Guidance (ICD-10-PCS; 2017-02-21)
DX: A41.9 Sepsis, unspecified organism (principal); J96.20 Acute and chronic respiratory failure, unspecified whether with hypoxia or hypercapnia; I50.22 Chronic systolic (congestive) heart failure; Q21.0 Ventricular septal defect; N17.9 Acute kidney failure, unspecified; I42.9 Cardiomyopathy, unspecified; S22.069A Unspecified fracture of T7-T8 vertebra, initial encounter for closed fracture; R55 Syncope and collapse; I27.20 Pulmonary hypertension, unspecified; I11.0 Hypertensive heart disease with heart failure; G47.33 Obstructive sleep apnea (adult) (pediatric); W19.XXXA Unspecified fall, initial encounter; D64.9 Anemia, unspecified; J44.9 Chronic obstructive pulmonary disease, unspecified; D69.6 Thrombocytopenia, unspecified; I48.2 Chronic atrial fibrillation; J84.10 Pulmonary fibrosis, unspecified; Z95.0 Presence of cardiac pacemaker; E78.5 Hyperlipidemia, unspecified; I25.10 Atherosclerotic heart disease of native coronary artery without angina pectoris

== ENCOUNTER → 2017-03-14 12:10 | Outpatient (CLI) | payer MEDICARE ==
[2017-02-21 10:01] VITALS: BMI 31.0
[~2017-03-14 12:10] MED LIST changes: +AFRIN NASAL SPR15 ML NASAL; +ELIQUIS5 MG PO; +NYSTATIN ORAL SU5 ML PO; +OXYCONTIN10 MG PO; +PERCOCET 10/3251 TA1 PO
== END | disposition home or self-care (01) ==
LOC: D.RAD 12:10
DX: R13.10 Dysphagia, unspecified (principal)

== ENCOUNTER 2017-03-20 06:15 | Inpatient (IN) | payer MEDICARE ==
[~2017-03-20] VITALS: Ht 160 cm; Wt 80.6 kg
--- NOTE | ~2017-03-20 | CN ---
PATIENT NAME:RIKKI RUST MEDICAL RECORD: [id number] : [birth year] LOCATION:D.[facility] [id number] ADMIT DATE: 03/20/17 ACCOUNT: [id number] CONSULTING PHYSICIAN: ROBERT SADLER MD REFERRING PHYSICIAN: RIGOBERTO WAGNER MD DATE OF CONSULTATION: 03/20/2017 CONSULT REQUESTING PHYSICIAN: Rigoberto Wagner MD REASON FOR CONSULTATION: Acute exacerbation of COPD and shortness of breath. HISTORY OF PRESENT ILLNESS: Ms. Rust is an 81-year-old female, very well known to me. The patient is now in the rehab, was admitted yesterday with worsening shortness of breath, coughing, wheezing, orthopnea, and PND. Also, she has fever. Cough was productive with green color sputum production. She is feeling very weak and lethargic. REVIEW OF SYSTEMS: As in history of present illness. PAST MEDICAL HISTORY: 1. COPD with recurrent flareup. 2. Chronic hypoxic respiratory failure. 3. History of pneumonia. 4. History of sleep apnea. 5. History of pulmonary fibrosis. 6. Anxiety, depression. PAST SURGICAL HISTORY: 1. Appendectomy. 2. Hysterectomy. 3. Heart catheterization and stent placement. ALLERGIES: SHE IS ALLERGIC TO SULFA, MOXIFLOXACIN, and Deplin. Medications on Neuronex was reviewed. PERSONAL AND SOCIAL HISTORY: The patient is an ex-smoker. She is a nondrinker. FAMILY HISTORY: Noncontributory. PHYSICAL EXAMINATION: GENERAL: Now, the patient is lying comfortably in bed. She is not in acute distress. VITAL SIGNS: The blood pressure is 195/60, pulse is 80, respiration is 17, temperature 99.1, SpO2 is 95% on CPAP. HEENT: Conjunctivae pink. Sclerae nonicteric. NECK: Supple. No JVD. CHEST: There are bilateral crackles. Wheeze on forceful expiration. HEART: Rhythm regular, normal sound. No murmur. ABDOMEN: Soft. Bowel sounds present. No hepatosplenomegaly. RECTAL: Deferred. EXTREMITIES: No cyanosis, no clubbing, no pedal edema. SKIN: Warm, normal turgor. CENTRAL NERVOUS SYSTEM: The patient is very sleepy and lethargic, but she is arousable. No obvious cranial nerve abnormality. CONSULT REPORT [id number] RIKKI RUST [facility] DATA: CBC: WBC 13.4, hemoglobin 10.9, hematocrit 37.7, platelet count is 209. Chemistry: Sodium 141, potassium 3.9, BUN is 13, creatinine 1.1. ABG: The pH was 7.34, pCO2 was 68.4, pO2 is 51, bicarbonate 37.4. IMPRESSION: 1. Hoozd-co-nehmeuz hypoxic hypercapnic respiratory failure. 2. Respiratory acidosis secondary to ogbqf-do-olckhjk hypoxic hypercapnic respiratory failure. 3. Pneumonia. 4. Pulmonary edema and congestive heart failure with possible chronic systolic dysfunction. 5. Leukocytosis secondary to pneumonia. RECOMMENDATION: 1. Start methylprednisolone IV. 2. Continue Zithromax and Rocephin. 3. Bumex 1 mg b.i.d., albuterol ipratropium nebulizer, Brovana and budesonide nebulizer. 4. BiPAP as required and oxygen to keep pulse ox above 90. 5. Follow up labs and chest radiograph. Dr. Wagner, thank you for involving me in the care of Ms. Rust. TRANSINT:[id number] Voice Confirmation ID: [id number] DOCUMENT ID: [id number] ROBERT SADLER MD at 1406 CC: RIGOBERTO WAGNER MD [id number] DICTATION DATE: 03/20/17 1637 NURSE PRN: 03/20/17 1828 ADM IN [facility] [address] [place] [address]
[~2017-03-20 06:15] MED LIST changes: -AFRIN NASAL SPR15 ML NASAL; -ELIQUIS5 MG PO; -NYSTATIN ORAL SU5 ML PO; -PERCOCET 10/3251 TA1 PO
[2017-03-20 06:49] LABS: BASOPHILS 0.1 % (0-2); EOSINOPHILS 0.1 % (0-7); HEMATOCRIT 37.7 % (36.0-48.0); HEMOGLOBIN 10.9 g/dL (12-16); IMMATURE GRANULOCYTES 0.4 % (0-5); LYMPHOCYTES 7.8 % (15-50); MCH 25.1 pg (26.0-34.0); MCHC 28.9 g/dL (31.0-37.0); MCV 86.7 fL (80.0-100.0); MEAN PLATELET VOLUME 10.1 fL (7.4-10.4); MONOCYTES 5.5 % (2-11); NEUTROPHILS 86.1 % (40-80); RBC 4.35 10x6/uL (4.00-5.40); RDW 26.1 % (11.5-14.5); WBC 13.4 10x3/uL (4.8-10.8)
[2017-03-20 06:50] LABS: PLATELET COUNT 209 10x3/uL (130-400)
[2017-03-20 07:08] LABS: ALBUMIN 2.5 g/dL (3.4-5.0); ANION GAP 7.4 mmol/L (8-16); BILIRUBIN - TOTAL 0.68 mg/dL (0.2-1.3); CALCIUM 8.4 mg/dL (8.5-10.1); CARBON DIOXIDE 35.5 mmol/L (21.0-32.0); CREATININE - SERUM 1.1 mg/dL (0.6-1.3); POTASSIUM - SERUM 3.9 mmol/L (3.5-5.1); PROTEIN - SERUM 5.5 g/dL (6.4-8.2)
[2017-03-20 07:16] LABS: TROPONIN-I 0.046 ng/mL (0.000-0.060)
[2017-03-20 10:08] VITALS: BP 103/58
[2017-03-20 11:47] VITALS: BP 88/49
[2017-03-20 16:15] VITALS: BP 95/60
[2017-03-21] VITALS: BP 95/50
[2017-03-21 04:00] VITALS: BP 105/63
[2017-03-21 06:15] LABS: BASOPHILS 0 % (0-2); EOSINOPHILS 0 % (0-7); HEMATOCRIT 34.8 % (36.0-48.0); HEMOGLOBIN 10.4 g/dL (12-16); IMMATURE GRANULOCYTES 0.3 % (0-5); LYMPHOCYTES 7.1 % (15-50); MCH 25.4 pg (26.0-34.0); MCHC 29.9 g/dL (31.0-37.0); MCV 84.9 fL (80.0-100.0); MEAN PLATELET VOLUME 10.6 fL (7.4-10.4); MONOCYTES 1.7 % (2-11); NEUTROPHILS 90.9 % (40-80); PLATELET COUNT 250 10x3/uL (130-400); RDW 25.7 % (11.5-14.5); WBC 10.7 10x3/uL (4.8-10.8)
[2017-03-21 06:40] LABS: ALBUMIN 2.3 g/dL (3.4-5.0); ANION GAP 7.8 mmol/L (8-16); BILIRUBIN - TOTAL 0.52 mg/dL (0.2-1.3); CALCIUM 8.8 mg/dL (8.5-10.1); CARBON DIOXIDE 34.3 mmol/L (21.0-32.0); CREATININE - SERUM 1.1 mg/dL (0.6-1.3); POTASSIUM - SERUM 4.1 mmol/L (3.5-5.1); PROTEIN - SERUM 5.2 g/dL (6.4-8.2)
[2017-03-21 08:26] VITALS: BP 104/63
[2017-03-21 11:50] VITALS: BP 120/70
[2017-03-21 15:47] VITALS: BP 118/68
[2017-03-22] VITALS: BP 99/40
[2017-03-22] MEDS ORDERED: PERCOCET 10/3251 TA1 PO (02:20)
[2017-03-22 03:55] VITALS: BP 99/40; Ht 160 cm; Wt 80.6 kg
[2017-03-22 04:00] VITALS: BP 104/67
[2017-03-22 07:08] LABS: BASOPHILS 0 % (0-2); EOSINOPHILS 0 % (0-7); HEMOGLOBIN 9.7 g/dL (12-16); IMMATURE GRANULOCYTES 0.4 % (0-5); LYMPHOCYTES 6.1 % (15-50); MCH 24.6 pg (26.0-34.0); MCHC 29.4 g/dL (31.0-37.0); MCV 83.8 fL (80.0-100.0); MEAN PLATELET VOLUME 10.2 fL (7.4-10.4); MONOCYTES 2.5 % (2-11); PLATELET COUNT 323 10x3/uL (130-400); RBC 3.94 10x6/uL (4.00-5.40); RDW 25.3 % (11.5-14.5); WBC 8.5 10x3/uL (4.8-10.8)
[2017-03-22 07:18] LABS: ALBUMIN 2.4 g/dL (3.4-5.0); ANION GAP 8.7 mmol/L (8-16); BILIRUBIN - TOTAL 0.38 mg/dL (0.2-1.3); CALCIUM 8.5 mg/dL (8.5-10.1); CARBON DIOXIDE 35.5 mmol/L (21.0-32.0); CREATININE - SERUM 1.2 mg/dL (0.6-1.3); POTASSIUM - SERUM 4.2 mmol/L (3.5-5.1); PROTEIN - SERUM 5.3 g/dL (6.4-8.2)
[2017-03-22 08:21] VITALS: BP 131/75
[2017-03-22 11:50] VITALS: BP 128/80
[2017-03-22 16:09] VITALS: BP 112/72
[2017-03-23 01:06] VITALS: BP 96/52
[2017-03-23 04:46] VITALS: BP 100/54
[2017-03-23 06:32] LABS: BASOPHILS 0 % (0-2); EOSINOPHILS 0 % (0-7); HEMATOCRIT 31.3 % (36.0-48.0); HEMOGLOBIN 9.2 g/dL (12-16); IMMATURE GRANULOCYTES 0.6 % (0-5); LYMPHOCYTES 5.5 % (15-50); MCH 24.5 pg (26.0-34.0); MCHC 29.4 g/dL (31.0-37.0); MCV 83.5 fL (80.0-100.0); MEAN PLATELET VOLUME 9.8 fL (7.4-10.4); MONOCYTES 3.4 % (2-11); NEUTROPHILS 90.5 % (40-80); PLATELET COUNT 316 10x3/uL (130-400); RBC 3.75 10x6/uL (4.00-5.40); RDW 25.3 % (11.5-14.5); WBC 6.7 10x3/uL (4.8-10.8)
[2017-03-23 07:07] LABS: ALBUMIN 2.4 g/dL (3.4-5.0); BILIRUBIN - TOTAL 0.32 mg/dL (0.2-1.3); CALCIUM 8.4 mg/dL (8.5-10.1); CARBON DIOXIDE 36.4 mmol/L (21.0-32.0); CREATININE - SERUM 1.3 mg/dL (0.6-1.3); POTASSIUM - SERUM 4.4 mmol/L (3.5-5.1); PROTEIN - SERUM 5.1 g/dL (6.4-8.2)
[2017-03-23 08:45] VITALS: BP 123/69
[2017-03-23 12:45] VITALS: BP 109/65
[2017-03-23 17:29] VITALS: BP 104/72
[2017-03-24] VITALS: BP 125/59
[2017-03-24 04:00] VITALS: BP 103/65
[2017-03-24 07:50] LABS: BASOPHILS 0 % (0-2); EOSINOPHILS 0 % (0-7); HEMATOCRIT 32.9 % (36.0-48.0); HEMOGLOBIN 9.6 g/dL (12-16); IMMATURE GRANULOCYTES 1.4 % (0-5); LYMPHOCYTES 5.6 % (15-50); MCH 24.6 pg (26.0-34.0); MCHC 29.2 g/dL (31.0-37.0); MCV 84.4 fL (80.0-100.0); MEAN PLATELET VOLUME 9.6 fL (7.4-10.4); MONOCYTES 3.3 % (2-11); NEUTROPHILS 89.7 % (40-80); PLATELET COUNT 364 10x3/uL (130-400); RDW 24.9 % (11.5-14.5); WBC 6.7 10x3/uL (4.8-10.8)
[2017-03-24 08:01] LABS: ALBUMIN 2.7 g/dL (3.4-5.0); ANION GAP 7.9 mmol/L (8-16); BILIRUBIN - TOTAL 0.37 mg/dL (0.2-1.3); CALCIUM 8.3 mg/dL (8.5-10.1); CARBON DIOXIDE 35.9 mmol/L (21.0-32.0); CREATININE - SERUM 1.3 mg/dL (0.6-1.3); POTASSIUM - SERUM 4.8 mmol/L (3.5-5.1); PROTEIN - SERUM 5.3 g/dL (6.4-8.2)
[2017-03-24 10:47] VITALS: BP 100/50
[2017-03-24 17:00] VITALS: BP 96/59
[2017-03-25 01:22] VITALS: BP 108/77
[2017-03-25 05:19] VITALS: BP 121/76
[2017-03-25 07:44] LABS: BASOPHILS 0 % (0-2); EOSINOPHILS 0 % (0-7); HEMATOCRIT 33.4 % (36.0-48.0); HEMOGLOBIN 9.7 g/dL (12-16); IMMATURE GRANULOCYTES 2.1 % (0-5); LYMPHOCYTES 5.5 % (15-50); MCH 24.7 pg (26.0-34.0); MCV 85.2 fL (80.0-100.0); MEAN PLATELET VOLUME 9.4 fL (7.4-10.4); MONOCYTES 4.1 % (2-11); NEUTROPHILS 88.3 % (40-80); PLATELET COUNT 430 10x3/uL (130-400); RBC 3.92 10x6/uL (4.00-5.40); WBC 6.6 10x3/uL (4.8-10.8)
[2017-03-25 08:05] LABS: ALBUMIN 2.8 g/dL (3.4-5.0); ANION GAP 6.8 mmol/L (8-16); BILIRUBIN - TOTAL 0.4 mg/dL (0.2-1.3); CALCIUM 8.4 mg/dL (8.5-10.1); CARBON DIOXIDE 35.1 mmol/L (21.0-32.0); CREATININE - SERUM 1.1 mg/dL (0.6-1.3); POTASSIUM - SERUM 4.9 mmol/L (3.5-5.1); PROTEIN - SERUM 5.5 g/dL (6.4-8.2)
[2017-03-25 08:34] VITALS: BP 97/58
[2017-03-25 12:33] VITALS: BP 102/69
[2017-03-25 16:51] VITALS: BP 112/68
[2017-03-25 22:17] VITALS: BP 99/50
[2017-03-26 02:28] VITALS: BP 94/67
[2017-03-26 04:41] VITALS: BP 90/62
[2017-03-26 07:02] LABS: HEMATOCRIT 32.4 % (36.0-48.0); HEMOGLOBIN 9.4 g/dL (12-16); MCH 24.5 pg (26.0-34.0); MCV 84.6 fL (80.0-100.0); MEAN PLATELET VOLUME 10.2 fL (7.4-10.4); PLATELET COUNT 463 10x3/uL (130-400); RBC 3.83 10x6/uL (4.00-5.40); RDW 24.9 % (11.5-14.5)
[2017-03-26 07:11] LABS: ANION GAP 7.5 mmol/L (8-16); CALCIUM 8.5 mg/dL (8.5-10.1); CARBON DIOXIDE 37.6 mmol/L (21.0-32.0)
[2017-03-26 07:15] LABS: POTASSIUM - SERUM 4.1 mmol/L (3.5-5.1)
[2017-03-26 07:48] LABS: WBC 10.6 10x3/uL (4.8-10.8)
[2017-03-26 08:26] VITALS: BP 120/74
[2017-03-26 09:05] LABS: EOSINOPHILS 4 % (0-7); LYMPHOCYTES 5 % (15-50); MONOCYTES 11 % (2-11); NEUTROPHILS 76 % (40-80); PLATELET ESTIMATE INCREASED
[2017-03-26 12:27] VITALS: BP 109/67
[2017-03-26 16:51] VITALS: BP 138/69
[2017-03-26 20:51] VITALS: BP 113/72
[2017-03-27 05:53] VITALS: BP 102/56
[2017-03-27 08:44] VITALS: BP 108/71
[2017-03-27 11:53] VITALS: BP 90/57
[2017-03-27 16:17] VITALS: BP 110/70
[2017-03-27 20:00] VITALS: BP 95/52
[2017-03-28] VITALS: BP 102/62
[2017-03-28 05:00] VITALS: BP 101/54
[2017-03-28 05:18] LABS: BASOPHILS 0.1 % (0-2); EOSINOPHILS 0 % (0-7); HEMATOCRIT 31.8 % (36.0-48.0); HEMOGLOBIN 9.3 g/dL (12-16); IMMATURE GRANULOCYTES 5.5 % (0-5); MCH 24.3 pg (26.0-34.0); MCHC 29.2 g/dL (31.0-37.0); MEAN PLATELET VOLUME 9.1 fL (7.4-10.4); MONOCYTES 8.4 % (2-11); PLATELET COUNT 459 10x3/uL (130-400); RBC 3.83 10x6/uL (4.00-5.40); RDW 24.6 % (11.5-14.5); WBC 10.5 10x3/uL (4.8-10.8)
[2017-03-28 05:32] LABS: APTT 23.8 SECONDS (22.8-39.4); INR 1.14 (0.85-1.17); PROTIME 14.2 SECONDS (11.6-15.0)
[2017-03-28 08:33] VITALS: BP 87/48
[2017-03-28 20:00] VITALS: BP 105/74
[2017-03-29 04:00] VITALS: BP 110/70
[2017-03-29 06:46] LABS: HEMATOCRIT 34.6 % (36.0-48.0); HEMOGLOBIN 10.1 g/dL (12-16); MCH 24.6 pg (26.0-34.0); MCHC 29.2 g/dL (31.0-37.0); MCV 84.4 fL (80.0-100.0); MEAN PLATELET VOLUME 9.8 fL (7.4-10.4); PLATELET COUNT 475 10x3/uL (130-400); RDW 24.4 % (11.5-14.5); WBC 20.3 10x3/uL (4.8-10.8)
[2017-03-29 06:57] LABS: ANION GAP 5.8 mmol/L (8-16); CALCIUM 8.5 mg/dL (8.5-10.1); CARBON DIOXIDE 39.3 mmol/L (21.0-32.0); CREATININE - SERUM 1.2 mg/dL (0.6-1.3); POTASSIUM - SERUM 4.1 mmol/L (3.5-5.1)
[2017-03-29 08:16] VITALS: BP 113/60
[2017-03-29 08:28] LABS: HYPOCHROMASIA 1+; LYMPHOCYTES 4 % (15-50); MONOCYTES 5 % (2-11); NEUTROPHILS 82 % (40-80); PLATELET ESTIMATE INCREASED
[2017-03-29 12:57] VITALS: BP 95/56
[2017-03-29 16:12] LABS: ACID FAST SMEAR Negative (()); AFB SPECIMEN PROCESSING Concentration (())
[2017-03-29 16:14] VITALS: BP 88/60
[2017-03-29 20:00] VITALS: BP 114/56
[2017-03-30] VITALS: BP 148/73
[2017-03-30 04:00] VITALS: BP 116/65
[2017-03-30 06:51] LABS: BASOPHILS 0.1 % (0-2); EOSINOPHILS 0 % (0-7); HEMATOCRIT 33.7 % (36.0-48.0); HEMOGLOBIN 9.8 g/dL (12-16); IMMATURE GRANULOCYTES 2.4 % (0-5); MCH 24.7 pg (26.0-34.0); MCHC 29.1 g/dL (31.0-37.0); MCV 84.9 fL (80.0-100.0); MEAN PLATELET VOLUME 9.7 fL (7.4-10.4); MONOCYTES 5.2 % (2-11); NEUTROPHILS 86.3 % (40-80); PLATELET COUNT 435 10x3/uL (130-400); RBC 3.97 10x6/uL (4.00-5.40); RDW 24.4 % (11.5-14.5); WBC 17.9 10x3/uL (4.8-10.8)
[2017-03-30 07:01] LABS: ANION GAP 5.5 mmol/L (8-16); CALCIUM 8.6 mg/dL (8.5-10.1); CARBON DIOXIDE 39.8 mmol/L (21.0-32.0); CREATININE - SERUM 1.2 mg/dL (0.6-1.3); POTASSIUM - SERUM 3.3 mmol/L (3.5-5.1)
[2017-03-30 09:03] VITALS: BP 99/61
[2017-03-30 20:00] VITALS: BP 98/54
[2017-03-31] VITALS: BP 113/60
[2017-03-31 04:00] VITALS: BP 97/58
[2017-03-31 05:22] LABS: BASOPHILS 0.2 % (0-2); EOSINOPHILS 0 % (0-7); HEMATOCRIT 31.6 % (36.0-48.0); HEMOGLOBIN 9.3 g/dL (12-16); IMMATURE GRANULOCYTES 4.8 % (0-5); LYMPHOCYTES 5.4 % (15-50); MCH 24.9 pg (26.0-34.0); MCHC 29.4 g/dL (31.0-37.0); MCV 84.5 fL (80.0-100.0); MEAN PLATELET VOLUME 9.7 fL (7.4-10.4); MONOCYTES 5.4 % (2-11); NEUTROPHILS 84.2 % (40-80); PLATELET COUNT 366 10x3/uL (130-400); RBC 3.74 10x6/uL (4.00-5.40); RDW 24.1 % (11.5-14.5)
[2017-03-31 05:44] LABS: ANION GAP 3.4 mmol/L (8-16); CALCIUM 8.2 mg/dL (8.5-10.1); POTASSIUM - SERUM 3.2 mmol/L (3.5-5.1)
[2017-03-31 05:45] LABS: CARBON DIOXIDE 40.8 mmol/L (21.0-32.0)
[2017-03-31 09:37] VITALS: BP 81/45
[2017-03-31 11:59] VITALS: BP 98/50
[2017-03-31 16:12] VITALS: BP 106/42
[2017-03-31 20:00] VITALS: BP 95/45
[2017-04-01] VITALS: BP 109/58
[2017-04-01 04:00] VITALS: BP 117/60
[2017-04-01 06:20] LABS: BASOPHILS 0.1 % (0-2); EOSINOPHILS 0.1 % (0-7); HEMATOCRIT 33.3 % (36.0-48.0); HEMOGLOBIN 9.5 g/dL (12-16); IMMATURE GRANULOCYTES 4.4 % (0-5); LYMPHOCYTES 6.6 % (15-50); MCH 24.7 pg (26.0-34.0); MCHC 28.5 g/dL (31.0-37.0); NEUTROPHILS 81.8 % (40-80); PLATELET COUNT 338 10x3/uL (130-400); RBC 3.84 10x6/uL (4.00-5.40); RDW 24.4 % (11.5-14.5)
[2017-04-01 06:40] LABS: CALCIUM 8.3 mg/dL (8.5-10.1); POTASSIUM - SERUM 3.2 mmol/L (3.5-5.1)
[2017-04-01 06:45] LABS: MCV 86.7 fL (80.0-100.0)
[2017-04-01 06:52] LABS: ANION GAP 7.2 mmol/L (8-16)
[2017-04-01 08:21] VITALS: BP 116/65
[2017-04-01 11:12] LABS: FUNGUS STAIN Final report (())
[2017-04-01 15:52] VITALS: BP 94/62
[2017-04-01 19:00] VITALS: BP 104/51
[2017-04-02] VITALS: BP 102/53
[2017-04-02 04:00] VITALS: BP 104/60
[2017-04-02 05:16] LABS: BASOPHILS 0.2 % (0-2); EOSINOPHILS 0 % (0-7); HEMOGLOBIN 8.9 g/dL (12-16); IMMATURE GRANULOCYTES 4.9 % (0-5); LYMPHOCYTES 4.9 % (15-50); MCH 24.9 pg (26.0-34.0); MCHC 28.7 g/dL (31.0-37.0); MCV 86.6 fL (80.0-100.0); MEAN PLATELET VOLUME 9.9 fL (7.4-10.4); MONOCYTES 6.6 % (2-11); NEUTROPHILS 83.4 % (40-80); PLATELET COUNT 290 10x3/uL (130-400); RBC 3.58 10x6/uL (4.00-5.40); RDW 24.3 % (11.5-14.5)
[2017-04-02 05:42] LABS: CALCIUM 8.2 mg/dL (8.5-10.1); CREATININE - SERUM 0.9 mg/dL (0.6-1.3)
[2017-04-02 08:45] VITALS: BP 104/65
[2017-04-02 12:16] VITALS: BP 115/75
[2017-04-02 16:19] VITALS: BP 123/73
[2017-04-02 22:00] VITALS: BP 126/61
[2017-04-03 04:00] VITALS: BP 138/77
[2017-04-03 06:20] LABS: BASOPHILS 0.2 % (0-2); EOSINOPHILS 0 % (0-7); HEMATOCRIT 35.6 % (36.0-48.0); IMMATURE GRANULOCYTES 5.9 % (0-5); MCH 24.5 pg (26.0-34.0); MCHC 28.1 g/dL (31.0-37.0); MCV 87.3 fL (80.0-100.0); MEAN PLATELET VOLUME 10.4 fL (7.4-10.4); MONOCYTES 6.1 % (2-11); NEUTROPHILS 77.8 % (40-80); PLATELET COUNT 343 10x3/uL (130-400); RBC 4.08 10x6/uL (4.00-5.40); RDW 24.6 % (11.5-14.5)
[2017-04-03 06:29] LABS: WBC 18.2 10x3/uL (4.8-10.8)
[2017-04-03 06:51] LABS: ALBUMIN 2.7 g/dL (3.4-5.0); BILIRUBIN - TOTAL 0.44 mg/dL (0.2-1.3); CALCIUM 8.5 mg/dL (8.5-10.1); CREATININE - SERUM 0.9 mg/dL (0.6-1.3); POTASSIUM - SERUM 3.8 mmol/L (3.5-5.1); PROTEIN - SERUM 5.6 g/dL (6.4-8.2)
[2017-04-03 06:53] LABS: ANION GAP 6.8 mmol/L (8-16)
[2017-04-03 10:57] VITALS: BP 96/53
[2017-04-03 15:21] LABS: FUNGUS STAIN RESULT 1 Hyphae observed (())
[2017-04-03 17:18] VITALS: BP 92/62
[2017-04-03 20:00] VITALS: BP 117/66; BP 121/79
[2017-04-04 07:52] LABS: HEMATOCRIT 32.7 % (36.0-48.0); HEMOGLOBIN 9.5 g/dL (12-16); LYMPHOCYTES 10.1 % (15-50); MCH 25.1 pg (26.0-34.0); MCHC 29.1 g/dL (31.0-37.0); MCV 86.3 fL (80.0-100.0); MEAN PLATELET VOLUME 9.8 fL (7.4-10.4); NEUTROPHILS 84.3 % (40-80); RBC 3.79 10x6/uL (4.00-5.40)
[2017-04-04 07:54] LABS: PLATELET COUNT 229 10x3/uL (130-400); WBC 12.5 10x3/uL (4.8-10.8)
[2017-04-04 08:30] LABS: ALBUMIN 2.5 g/dL (3.4-5.0); ANION GAP 4.3 mmol/L (8-16); BILIRUBIN - TOTAL 0.4 mg/dL (0.2-1.3); CREATININE - SERUM 0.8 mg/dL (0.6-1.3); POTASSIUM - SERUM 3.8 mmol/L (3.5-5.1); PROTEIN - SERUM 5.2 g/dL (6.4-8.2)
[2017-04-04 08:46] LABS: CARBON DIOXIDE 47.5 mmol/L (21.0-32.0)
[2017-04-04 09:38] VITALS: BP 116/70
[2017-04-04] MEDS ORDERED: NYSTATIN ORAL SU5 ML PO (12:41)
[2017-04-04] MEDS ORDERED: ELIQUIS5 MG PO (12:41)
[2017-04-04] MEDS ORDERED: AFRIN NASAL SPR15 ML NASAL (12:42)
[2017-04-04] MEDS ORDERED: FLORAJEN3 CAPS460 MG PO (12:42)
[2017-04-04] MEDS ORDERED: BUMEX2 MG PO (12:43)
[2017-04-04] MEDS ORDERED: PREDNISONE10 MG PO (12:43)
[2017-04-04 13:45] VITALS: BP 106/55
[2017-04-04] MEDS ORDERED: AMBIEN5 MG PO (15:06)
[2017-04-05 17:11] LABS: FUNGUS CULTURE RESULT 1 Candida albicans (())
[2017-04-25 09:18] LABS: FUNGUS MYCOLOGY CULTURE Final report (())
== END 2017-04-04 16:10 | DRG 291 ==
LOC: D.ER 06:15 → D.MS 08:40
PROVIDERS: Emergency Medicine; Family Medicine; Internal Medicine Nephrology; Internal Medicine Pulmonary Disease
PROC: 0B968ZZ Drainage of Right Lower Lobe Bronchus, Via Natural or Artificial Opening Endoscopic (ICD-10-PCS; 2017-03-28)
PROC: 0B9B8ZZ Drainage of Left Lower Lobe Bronchus, Via Natural or Artificial Opening Endoscopic (ICD-10-PCS; principal; 2017-03-28 11:19)
DX: I50.23 Acute on chronic systolic (congestive) heart failure (principal); J18.9 Pneumonia, unspecified organism; J96.21 Acute and chronic respiratory failure with hypoxia; J96.22 Acute and chronic respiratory failure with hypercapnia; J44.1 Chronic obstructive pulmonary disease with (acute) exacerbation; T17.590A Other foreign object in bronchus causing asphyxiation, initial encounter; J44.0 Chronic obstructive pulmonary disease with (acute) lower respiratory infection; I11.0 Hypertensive heart disease with heart failure; I48.91 Unspecified atrial fibrillation; I25.10 Atherosclerotic heart disease of native coronary artery without angina pectoris; D50.9 Iron deficiency anemia, unspecified

== ENCOUNTER 2017-04-17 10:18 | Inpatient (IN) | payer MEDICARE ==
[~2017-04-17] VITALS: Ht 160 cm; Wt 81.6 kg
[~2017-04-17 10:18] MED LIST changes: +AFRIN NASAL SPR15 ML NASAL; +ELIQUIS5 MG PO; +NYSTATIN ORAL SU5 ML PO; +PERCOCET 10/3251 TA1 PO
[2017-04-17 11:05] LABS: BASOPHILS 0.1 % (0-2); EOSINOPHILS 0.1 % (0-7); HEMATOCRIT 30.7 % (36.0-48.0); HEMOGLOBIN 8.4 g/dL (12-16); IMMATURE GRANULOCYTES 0.3 % (0-5); LYMPHOCYTES 4.7 % (15-50); MCH 24.6 pg (26.0-34.0); MCHC 27.4 g/dL (31.0-37.0); MCV 89.8 fL (80.0-100.0); MONOCYTES 6.2 % (2-11); NEUTROPHILS 88.6 % (40-80); PLATELET COUNT 219 10x3/uL (130-400); RBC 3.42 10x6/uL (4.00-5.40); RDW 23.4 % (11.5-14.5); WBC 9.6 10x3/uL (4.8-10.8)
[2017-04-17 11:27] LABS: ALBUMIN 2.7 g/dL (3.4-5.0); ANION GAP 2.7 mmol/L (8-16); BILIRUBIN - TOTAL 0.51 mg/dL (0.2-1.3); CALCIUM 8.2 mg/dL (8.5-10.1); POTASSIUM - SERUM 3.2 mmol/L (3.5-5.1); PROTEIN - SERUM 5.5 g/dL (6.4-8.2)
[2017-04-17 11:34] LABS: CARBON DIOXIDE 46.5 mmol/L (21.0-32.0)
[2017-04-17 16:06] VITALS: BP 115/46; BMI 31.7
[2017-04-17 21:17] VITALS: BP 105/44
[2017-04-18 05:22] LABS: BASOPHILS 0.1 % (0-2); EOSINOPHILS 0 % (0-7); HEMATOCRIT 29.9 % (36.0-48.0); HEMOGLOBIN 8.4 g/dL (12-16); IMMATURE GRANULOCYTES 0.3 % (0-5); LYMPHOCYTES 8.2 % (15-50); MCH 24.9 pg (26.0-34.0); MCHC 28.1 g/dL (31.0-37.0); MCV 88.5 fL (80.0-100.0); MEAN PLATELET VOLUME 9.7 fL (7.4-10.4); MONOCYTES 6.5 % (2-11); NEUTROPHILS 84.9 % (40-80); PLATELET COUNT 245 10x3/uL (130-400); RBC 3.38 10x6/uL (4.00-5.40); RDW 23.6 % (11.5-14.5); WBC 7.8 10x3/uL (4.8-10.8)
[2017-04-18 05:48] LABS: ALBUMIN 2.4 g/dL (3.4-5.0); BILIRUBIN - TOTAL 0.5 mg/dL (0.2-1.3); CALCIUM 8.3 mg/dL (8.5-10.1); CREATININE - SERUM 0.8 mg/dL (0.6-1.3); PROTEIN - SERUM 5.1 g/dL (6.4-8.2)
[2017-04-18 05:51] LABS: ANION GAP 4.1 mmol/L (8-16); CARBON DIOXIDE 42.7 mmol/L (21.0-32.0); POTASSIUM - SERUM 2.8 mmol/L (3.5-5.1)
[2017-04-18 06:06] VITALS: BP 103/43
[2017-04-18 10:05] VITALS: Ht 160 cm; Wt 81.6 kg
[2017-04-18 10:46] VITALS: BP 134/59
[2017-04-18 12:00] VITALS: BP 107/52
[2017-04-18 16:00] VITALS: BP 097/047
[2017-04-18 20:00] VITALS: BP 105/87
[2017-04-18 20:48] LABS: CREATININE - SERUM 0.9 mg/dL (0.6-1.3)
[2017-04-18 20:50] LABS: ANION GAP -11.5 mmol/L (8-16); POTASSIUM - SERUM 3.7 mmol/L (3.5-5.1)
[2017-04-18 20:51] LABS: CARBON DIOXIDE 45.2 mmol/L (21.0-32.0)
[2017-04-19] VITALS: BP 129/78
[2017-04-19 04:00] VITALS: BP 110/51
[2017-04-19 04:42] LABS: BASOPHILS 0.1 % (0-2); EOSINOPHILS 0.1 % (0-7); HEMATOCRIT 29.3 % (36.0-48.0); HEMOGLOBIN 8.2 g/dL (12-16); IMMATURE GRANULOCYTES 0.4 % (0-5); LYMPHOCYTES 8.9 % (15-50); MCH 24.7 pg (26.0-34.0); MCV 88.3 fL (80.0-100.0); MEAN PLATELET VOLUME 9.6 fL (7.4-10.4); MONOCYTES 4.6 % (2-11); NEUTROPHILS 85.9 % (40-80); PLATELET COUNT 252 10x3/uL (130-400); RBC 3.32 10x6/uL (4.00-5.40); RDW 22.9 % (11.5-14.5); WBC 8.1 10x3/uL (4.8-10.8)
[2017-04-19 05:01] LABS: ALBUMIN 2.3 g/dL (3.4-5.0); ANION GAP 2.5 mmol/L (8-16); BILIRUBIN - TOTAL 0.5 mg/dL (0.2-1.3); CALCIUM 7.9 mg/dL (8.5-10.1); CREATININE - SERUM 0.8 mg/dL (0.6-1.3); POTASSIUM - SERUM 3.7 mmol/L (3.5-5.1); PROTEIN - SERUM 5.1 g/dL (6.4-8.2)
[2017-04-19 05:05] LABS: CARBON DIOXIDE 47.2 mmol/L (21.0-32.0)
[2017-04-19 08:49] VITALS: BP 99/58
[2017-04-19 11:33] VITALS: BP 122/71
[2017-04-19 15:35] VITALS: BP 114/60
[2017-04-19 21:10] VITALS: BP 111/60
[2017-04-20 02:43] VITALS: BP 125/64
[2017-04-20 05:43] LABS: BASOPHILS 0.1 % (0-2); EOSINOPHILS 0.1 % (0-7); HEMATOCRIT 33.4 % (36.0-48.0); HEMOGLOBIN 9.1 g/dL (12-16); IMMATURE GRANULOCYTES 0.4 % (0-5); LYMPHOCYTES 7.1 % (15-50); MCH 24.6 pg (26.0-34.0); MCHC 27.2 g/dL (31.0-37.0); MEAN PLATELET VOLUME 9.4 fL (7.4-10.4); MONOCYTES 4.6 % (2-11); NEUTROPHILS 87.7 % (40-80); PLATELET COUNT 260 10x3/uL (130-400); RDW 22.7 % (11.5-14.5); WBC 7.9 10x3/uL (4.8-10.8)
[2017-04-20 05:53] LABS: MCV 90.3 fL (80.0-100.0)
[2017-04-20 06:08] LABS: ALBUMIN 2.4 g/dL (3.4-5.0); BILIRUBIN - TOTAL 0.46 mg/dL (0.2-1.3); CALCIUM 8.4 mg/dL (8.5-10.1); CREATININE - SERUM 0.8 mg/dL (0.6-1.3); PROTEIN - SERUM 5.5 g/dL (6.4-8.2)
[2017-04-20 06:09] LABS: POTASSIUM - SERUM 4.4 mmol/L (3.5-5.1)
[2017-04-20 06:10] LABS: CARBON DIOXIDE 43.4 mmol/L (21.0-32.0)
[2017-04-20 09:21] VITALS: BP 126/63
[2017-04-20 11:53] VITALS: BP 112/63
[2017-04-20 15:06] VITALS: BP 118/56
[2017-04-20 20:00] VITALS: BP 101/51
[2017-04-21] VITALS: BP 100/52
[2017-04-21 04:00] VITALS: BP 112/66
[2017-04-21 07:16] LABS: BASOPHILS 0.1 % (0-2); EOSINOPHILS 0.4 % (0-7); HEMATOCRIT 30.7 % (36.0-48.0); HEMOGLOBIN 8.5 g/dL (12-16); IMMATURE GRANULOCYTES 0.2 % (0-5); LYMPHOCYTES 10.1 % (15-50); MCH 24.4 pg (26.0-34.0); MCHC 27.7 g/dL (31.0-37.0); MEAN PLATELET VOLUME 9.5 fL (7.4-10.4); MONOCYTES 5.1 % (2-11); NEUTROPHILS 84.1 % (40-80); PLATELET COUNT 261 10x3/uL (130-400); RBC 3.48 10x6/uL (4.00-5.40); RDW 22.3 % (11.5-14.5); WBC 8.4 10x3/uL (4.8-10.8)
[2017-04-21 07:19] LABS: MCV 88.2 fL (80.0-100.0)
[2017-04-21 07:42] LABS: ALBUMIN 2.2 g/dL (3.4-5.0); ALKALINE PHOSPHATASE 186 U/L (46-116); ALT (SGPT) 42 U/L (10-68); BILIRUBIN - TOTAL 0.51 mg/dL (0.2-1.3); CALC OSMOLALITY 278 mosm/kg (275-300); CALCIUM 8.1 mg/dL (8.5-10.1); CHLORIDE - SERUM 96 mmol/L (98-107); CREATININE - SERUM 0.7 mg/dL (0.6-1.3); GLUCOSE 90 mg/dL (74-106); POTASSIUM - SERUM 4.1 mmol/L (3.5-5.1); PRO BNP 9730 pg/mL (0-450); SODIUM 139 mmol/L (136-145); UREA NITROGEN 14 mg/dL (7-18); eGFR NON AFRICAN AMERICAN 85 mL/min (90-120)
[2017-04-21 08:01] VITALS: BP 131/59
[2017-04-21 11:26] VITALS: BP 106/56
[2017-04-21 12:38] LABS: % SATURATION 5 % (15-55); IRON 14 ug/dl (35-150); TOTAL IRON BIND CAPACITY 239 ug/dl (260-445); UNSAT IRON BIND CAPACITY 225 ug/dl (150-375)
[2017-04-21 15:52] VITALS: BP 118/62
[2017-04-21 20:00] VITALS: BP 112/54
[2017-04-22] VITALS (7 sets, daily range): BP systolic 109–157; BP diastolic 60–82
[2017-04-22 06:12] LABS: ALBUMIN 2.1 g/dL (3.4-5.0); ANION GAP 0.9 mmol/L (8-16); BILIRUBIN - TOTAL 0.5 mg/dL (0.2-1.3); CALCIUM 8.2 mg/dL (8.5-10.1); CREATININE - SERUM 0.8 mg/dL (0.6-1.3); POTASSIUM - SERUM 4.1 mmol/L (3.5-5.1)
[2017-04-22 06:21] LABS: BASOPHILS 0.3 % (0-2); EOSINOPHILS 0.5 % (0-7); HEMATOCRIT 30.9 % (36.0-48.0); HEMOGLOBIN 8.5 g/dL (12-16); IMMATURE GRANULOCYTES 0.3 % (0-5); LYMPHOCYTES 13.8 % (15-50); MCH 24.1 pg (26.0-34.0); MCHC 27.5 g/dL (31.0-37.0); MCV 87.5 fL (80.0-100.0); MEAN PLATELET VOLUME 9.7 fL (7.4-10.4); MONOCYTES 5.6 % (2-11); NEUTROPHILS 79.5 % (40-80); PLATELET COUNT 305 10x3/uL (130-400); RBC 3.53 10x6/uL (4.00-5.40); RDW 22.4 % (11.5-14.5); WBC 7.4 10x3/uL (4.8-10.8)
[2017-04-22 07:08] LABS: CARBON DIOXIDE 45.2 mmol/L (21.0-32.0)
[2017-04-23] VITALS: BP 104/65
[2017-04-23 05:39] LABS: BASOPHILS 0.2 % (0-2); HEMATOCRIT 28.6 % (36.0-48.0); IMMATURE GRANULOCYTES 0.5 % (0-5); MCH 24.6 pg (26.0-34.0); MEAN PLATELET VOLUME 9.8 fL (7.4-10.4); NEUTROPHILS 79.3 % (40-80); PLATELET COUNT 298 10x3/uL (130-400); RBC 3.25 10x6/uL (4.00-5.40); WBC 5.9 10x3/uL (4.8-10.8)
[2017-04-23 06:01] LABS: ANION GAP 3.8 mmol/L (8-16); CALCIUM 7.8 mg/dL (8.5-10.1); CREATININE - SERUM 0.9 mg/dL (0.6-1.3); POTASSIUM - SERUM 3.7 mmol/L (3.5-5.1); VANCOMYCIN - TROUGH 14.8 ug/mL (10.0-20.0)
[2017-04-23 06:02] LABS: CARBON DIOXIDE 43.9 mmol/L (21.0-32.0)
[2017-04-23 06:05] VITALS: BP 110/60
[2017-04-23 08:18] LABS: FOLATE (FOLIC ACID) - SERUM 18.1 ng/mL (>3.0)
[2017-04-23 08:29] VITALS: BP 99/52
[2017-04-23 11:43] VITALS: BP 122/52
[2017-04-23 15:08] VITALS: BP 128/70
[2017-04-23 20:00] VITALS: BP 132/73
[2017-04-24] VITALS: BP 110/69
[2017-04-24 07:00] VITALS: BP 122/73
[2017-04-24 12:41] VITALS: BP 123/72
[2017-04-24 12:45] LABS: BASOPHILS 0.6 % (0-2); EOSINOPHILS 0.5 % (0-7); HEMATOCRIT 32.9 % (36.0-48.0); LYMPHOCYTES 18.1 % (15-50); MCH 24.3 pg (26.0-34.0); MCHC 27.4 g/dL (31.0-37.0); MCV 88.9 fL (80.0-100.0); MEAN PLATELET VOLUME 9.3 fL (7.4-10.4); NEUTROPHILS 70.8 % (40-80); PLATELET COUNT 357 10x3/uL (130-400); RDW 22.1 % (11.5-14.5)
[2017-04-24 13:04] LABS: CALCIUM 8.3 mg/dL (8.5-10.1); CREATININE - SERUM 0.8 mg/dL (0.6-1.3)
[2017-04-24 13:12] LABS: ANION GAP 4.3 mmol/L (8-16); POTASSIUM - SERUM 4.6 mmol/L (3.5-5.1)
[2017-04-24 13:13] LABS: CARBON DIOXIDE 43.3 mmol/L (21.0-32.0)
[2017-04-24 13:16] LABS: WBC 9.5 10x3/uL (4.8-10.8)
[2017-04-24 17:02] VITALS: BP 168/54
[2017-04-24 22:06] VITALS: BP 108/53
[2017-04-25 05:05] VITALS: BP 117/60
[2017-04-25 05:10] LABS: BASOPHILS 0.5 % (0-2); EOSINOPHILS 0.7 % (0-7); HEMATOCRIT 31.2 % (36.0-48.0); HEMOGLOBIN 8.5 g/dL (12-16); IMMATURE GRANULOCYTES 3.9 % (0-5); MCH 24.3 pg (26.0-34.0); MCHC 27.2 g/dL (31.0-37.0); MCV 89.1 fL (80.0-100.0); MEAN PLATELET VOLUME 9.5 fL (7.4-10.4); MONOCYTES 9.4 % (2-11); NEUTROPHILS 69.5 % (40-80); PLATELET COUNT 321 10x3/uL (130-400); RDW 22.3 % (11.5-14.5)
[2017-04-25 05:15] LABS: WBC 6.1 10x3/uL (4.8-10.8)
[2017-04-25 05:40] LABS: CALCIUM 7.8 mg/dL (8.5-10.1); CREATININE - SERUM 0.9 mg/dL (0.6-1.3)
[2017-04-25 05:41] LABS: ANION GAP 2.3 mmol/L (8-16); POTASSIUM - SERUM 3.3 mmol/L (3.5-5.1)
[2017-04-25 08:40] VITALS: BP 105/65
[2017-04-25 12:24] VITALS: BP 111/57
[2017-04-25 20:00] VITALS: BP 125/65
[2017-04-26] VITALS: BP 119/64
[2017-04-26 04:00] VITALS: BP 128/71
[2017-04-26 05:33] LABS: BASOPHILS 0.6 % (0-2); EOSINOPHILS 0.3 % (0-7); HEMATOCRIT 32.7 % (36.0-48.0); HEMOGLOBIN 8.7 g/dL (12-16); IMMATURE GRANULOCYTES 4.7 % (0-5); LYMPHOCYTES 18.6 % (15-50); MCHC 26.6 g/dL (31.0-37.0); MCV 90.3 fL (80.0-100.0); MEAN PLATELET VOLUME 9.6 fL (7.4-10.4); MONOCYTES 9.6 % (2-11); NEUTROPHILS 66.2 % (40-80); PLATELET COUNT 377 10x3/uL (130-400); RBC 3.62 10x6/uL (4.00-5.40); RDW 22.4 % (11.5-14.5); WBC 6.7 10x3/uL (4.8-10.8)
[2017-04-26 05:43] LABS: ANION GAP 6.8 mmol/L (8-16); CALCIUM 8.4 mg/dL (8.5-10.1); CARBON DIOXIDE 38.5 mmol/L (21.0-32.0); CREATININE - SERUM 0.8 mg/dL (0.6-1.3); POTASSIUM - SERUM 3.3 mmol/L (3.5-5.1)
[2017-04-26 08:00] VITALS: BP 122/64
[2017-04-26 12:00] VITALS: BP 119/72
[2017-04-26 14:51] VITALS: BP 129/51
[2017-04-26 21:53] VITALS: BP 129/61
[2017-04-27 03:00] LABS: BASOPHILS 0.4 % (0-2); EOSINOPHILS 0.4 % (0-7); HEMATOCRIT 32.1 % (36.0-48.0); HEMOGLOBIN 8.7 g/dL (12-16); IMMATURE GRANULOCYTES 3.8 % (0-5); MCH 24.5 pg (26.0-34.0); MCHC 27.1 g/dL (31.0-37.0); MCV 90.4 fL (80.0-100.0); MEAN PLATELET VOLUME 9.4 fL (7.4-10.4); MONOCYTES 8.6 % (2-11); NEUTROPHILS 69.8 % (40-80); PLATELET COUNT 353 10x3/uL (130-400); RBC 3.55 10x6/uL (4.00-5.40); RDW 22.4 % (11.5-14.5); WBC 7.8 10x3/uL (4.8-10.8)
[2017-04-27 03:22] LABS: ANION GAP 3.4 mmol/L (8-16); CARBON DIOXIDE 40.1 mmol/L (21.0-32.0); CREATININE - SERUM 0.9 mg/dL (0.6-1.3); MAGNESIUM - SERUM 1.9 mg/dL (1.8-2.4); PHOSPHOROUS 3.1 mg/dL (2.5-4.9); POTASSIUM - SERUM 3.5 mmol/L (3.5-5.1)
[2017-04-27 05:40] VITALS: BP 141/60
[2017-04-27 08:57] VITALS: BP 100/59
[2017-04-27 11:42] VITALS: BP 110/59
[2017-04-27 15:56] VITALS: BP 102/62
[2017-04-27 20:26] VITALS: BP 109/56
[2017-04-28 05:02] LABS: BASOPHILS 0.4 % (0-2); EOSINOPHILS 0.4 % (0-7); HEMATOCRIT 31.8 % (36.0-48.0); HEMOGLOBIN 8.6 g/dL (12-16); IMMATURE GRANULOCYTES 2.3 % (0-5); LYMPHOCYTES 17.9 % (15-50); MCH 24.2 pg (26.0-34.0); MCV 89.6 fL (80.0-100.0); MEAN PLATELET VOLUME 9.4 fL (7.4-10.4); MONOCYTES 8.5 % (2-11); NEUTROPHILS 70.5 % (40-80); PLATELET COUNT 332 10x3/uL (130-400); RBC 3.55 10x6/uL (4.00-5.40); RDW 22.9 % (11.5-14.5); WBC 7.4 10x3/uL (4.8-10.8)
[2017-04-28 05:21] LABS: ANION GAP 2.8 mmol/L (8-16); CALCIUM 8.2 mg/dL (8.5-10.1); POTASSIUM - SERUM 3.1 mmol/L (3.5-5.1); VANCOMYCIN - RANDOM 20.2 ug/mL (10.0-20.0)
[2017-04-28 05:27] LABS: CARBON DIOXIDE 41.3 mmol/L (21.0-32.0)
[2017-04-28 06:23] VITALS: BP 102/57
[2017-04-28 07:00] VITALS: BP 98/59
[2017-04-28 20:00] VITALS: BP 100/55
[2017-04-29 06:01] LABS: BASOPHILS 0.2 % (0-2); EOSINOPHILS 0.2 % (0-7); HEMATOCRIT 34.1 % (36.0-48.0); HEMOGLOBIN 9.3 g/dL (12-16); IMMATURE GRANULOCYTES 2.6 % (0-5); LYMPHOCYTES 15.3 % (15-50); MCH 24.7 pg (26.0-34.0); MCHC 27.3 g/dL (31.0-37.0); MCV 90.5 fL (80.0-100.0); MEAN PLATELET VOLUME 9.8 fL (7.4-10.4); MONOCYTES 7.6 % (2-11); NEUTROPHILS 74.1 % (40-80); PLATELET COUNT 363 10x3/uL (130-400); RBC 3.77 10x6/uL (4.00-5.40); RDW 23.1 % (11.5-14.5); WBC 8.4 10x3/uL (4.8-10.8)
[2017-04-29 06:11] LABS: ANION GAP 6.6 mmol/L (8-16); CALCIUM 8.2 mg/dL (8.5-10.1); CARBON DIOXIDE 38.2 mmol/L (21.0-32.0); POTASSIUM - SERUM 3.8 mmol/L (3.5-5.1); VANCOMYCIN - RANDOM 14.9 ug/mL (10.0-20.0)
[2017-04-29 08:57] VITALS: BP 158/54
[2017-04-29 12:14] VITALS: BP 96/57
[2017-04-29 16:59] VITALS: BP 118/63
[2017-04-29 21:07] VITALS: BP 100/51
== END 2017-04-29 22:24 | disposition home health service (06) | DRG 291 ==
LOC: D.ER 10:18 → D.M2 14:22
PROVIDERS: Emergency Medicine; Family Medicine; Internal Medicine Nephrology; Internal Medicine Pulmonary Disease
PROC: 0T9B70Z Drainage of Bladder with Drainage Device, Via Natural or Artificial Opening (ICD-10-PCS; 2017-04-17)
PROC: 5A09557 Assistance with Respiratory Ventilation, Greater than 96 Consecutive Hours, Continuous Positive Airway Pressure (ICD-10-PCS; principal; 2017-04-18)
PROC: 05HB33Z Insertion of Infusion Device into Right Basilic Vein, Percutaneous Approach (ICD-10-PCS; 2017-04-24)
PROC: B54MZZA Ultrasonography of Right Upper Extremity Veins, Guidance (ICD-10-PCS; 2017-04-24)
DX: I11.0 Hypertensive heart disease with heart failure (principal); J96.21 Acute and chronic respiratory failure with hypoxia; J18.9 Pneumonia, unspecified organism; J44.1 Chronic obstructive pulmonary disease with (acute) exacerbation; J44.0 Chronic obstructive pulmonary disease with (acute) lower respiratory infection; I82.441 Acute embolism and thrombosis of right tibial vein; E46 Unspecified protein-calorie malnutrition; G47.33 Obstructive sleep apnea (adult) (pediatric); I25.10 Atherosclerotic heart disease of native coronary artery without angina pectoris; F41.8 Other specified anxiety disorders; I48.2 Chronic atrial fibrillation; I27.20 Pulmonary hypertension, unspecified; I42.9 Cardiomyopathy, unspecified; E87.6 Hypokalemia; I50.23 Acute on chronic systolic (congestive) heart failure; Z66 Do not resuscitate; D50.9 Iron deficiency anemia, unspecified; Z95.0 Presence of cardiac pacemaker; Z87.891 Personal history of nicotine dependence